=== PATIENT | male | born 1965 | race Caucasian/White ===

== ENCOUNTER → 2023-03-10 13:53 | Outpatient (CLI) | payer SELFPAY ==
--- NOTE | ~2023-03-10 | XR_ITS ---
XR abdomen/kub 1V DATE: 03/10/2023 14:17 INDICATION: Abdominal pain, severe constipation for 6 to 8 weeks TECHNIQUE: 2 AP supine views COMPARISON: None FINDINGS: There are multiple calcified faceted probable gallstones measuring up to proxy 4 5 mm, over lying the right upper quadrant. There is moderately prominent of fecal material in the cecum and ascending colon and moderate gaseous distention of the transverse and descending colon. No bowel obstruction is evident. The psoas shadows are intact. No visceromegaly is detected. The lung bases are clear. Heart size appears normal. IMPRESSION: Nonspecific bowel gas pattern; moderate amount of fecal material in the cecum and ascendi ng colon Probable calcified gallstones Reviewed, dictated and finalized at [facility]. Reviewed, dictated and finalized at location [] IMPRESSION: Nonspecific bowel gas pattern; moderate amount of fecal material in the cecum and ascending colon Probable calcified gallstones
== END ==
PROVIDERS: PCP Nurse Practitioner Family; Visit Provider Nurse Practitioner Family
DX: R10.9 Unspecified abdominal pain (principal); K59.00 Constipation, unspecified
CPT/HCPCS: 74018

== ENCOUNTER 2023-03-21 15:13 | Emergency (ER) | payer SELFPAY ==
--- NOTE | ~2023-03-21 | CT_ITS ---
EXAMINATION: CT abdomen pelvis w con DATE: 03/21/2023 19:17 INDICATION: constipation, LLQ, RLQ TTP TECHNIQUE: Computed tomography (CT) of the abdomen and pelvis was performed with 100 mL Omnipaque-350 intravenous contrast. Automated exposure control and iterative reconstruction technique were employe d. The dose-length product was 831.58 mGy-cm. COMPARISON: None. FINDINGS: Lower thorax: Unremarkable Liver: Caudate lobe hypodensity, likely cyst or hemangioma. Biliary/Gallbladder: Cholelithiasis. No bile duct dilation. Pancreas: No mass or duct dilation. Spleen: Normal. Adrenals:No mass. Kidneys: Multiple simple right renal cysts. Multiple bilateral subcentimeter hypodensities, too small to characterize but most likely represent cysts. Mild bilateral perinephric stranding. No suspicious mass, obstructing calcification, or hydronephrosis GI tract: Moderate distal esophageal and gastric wall edema. Wall thickening and edema affecting the entire sigmoid colon, with severe surrounding inflammatory change and adjacent interloop fluid. Mild dilation of proximal large bowel. No small bowel dilation. Normal appendix. Mesentery/Peritoneum: Mesenteric lymphadenopathy. No ascites, mass, or free air. Retroperitoneum: No mass. Mild atherosclerotic abdominal aortic and/or arterial calcifications. Pelvis: 9 mm focus in the left lateral aspect of the superior urinary bladder, may represent a bladde r wall mass. Mild prostatomegaly with calcification. Soft Tissues: Soft tissues and body wall unremarkable. Bones: No acute osseous finding. IMPRESSION: 1. Severe infectious, inflammatory, or ischemic sigmoid colitis, causing mild proximal large bowel il eus or early/partial obstruction. 2. Esophagitis/gastritis. 3. 9 mm bladder wall focus, possible bladder wall mass, recommend urology referral and consideration for cystoscopy. 4. Mesenteric lymphadenopathy. Reviewed, dictated and finalized at location K. IMPRESSION: 1. Severe infectious, inflammatory, or ischemic sigmoid colitis, causing mild p roximal large bowel ileus or early/partial obstruction. 2. Esophagitis/gastritis. 3. 9 mm bladder wall focus, possible bladder wall mass, recommend urology refer ral and consideration for cystoscopy. 4. Mesenteric lymphadenopathy.
[2023-03-21 15:36] VITALS: BP 146/99; PULSE 89; RESP 18; TEMP 36.3; O2SAT 95
--- NOTE | 2023-03-21 17:49 | ED.GENADULT ---
HPI - General Adult General Chief complaint: Abdominal Pain Stated complaint: constipation Time Seen by Provider: 03/21/23 17:12 Source: patient Mode of arrival: ambulatory Limitations: no limitations History of Present Illness HPI narrative: This is a 57-year-old male with PMH of T2DM, HLD, BPH who presents to the ED with chief complaint of constipation has been going on for the last 8 weeks. Patient states that last month he saw his PCP and had an x-ray and was given stool softener and Gas-X. States that the stool softener helped a little but he still feels constipated and bloated. He has tried other urrv-rdd-rprrfhz remedies with no relief. Patient states that he is having bowel movements but not a lot. Also reports concern over a protruding rectum. Denies bloody stools or melena. Denies nausea, vomiting, fevers, chills, chest pain, shortness of breath. He was able to have a bowel movement while in the department today just before I interviewed him. Related Data Home Medications Medication Instructions Recorded Confirmed multivitamin (Daily Multi-Vitamin 1 tablet PO DAILY 01/31/23 tablet) oarwbm-[id number]-tnz palm-min 17 cap PO .QD 01/31/23 capsule (Prostate Therapy capsule) pravastatin 40 mg tablet 40 mg PO QHS 01/31/23 Allergies Allergy/AdvReac Type Severity Reaction Status Date / Time No Known Allergies Allergy Verified 01/31/23 14:14 [facility] Past Medical History Medical History Benign essential hypertension BPH associated with nocturia Hyperlipidemia, unspecified Type 2 diabetes mellitus without complication, without long-term current use of insulin Surgical History Surgical History No history of previous surgery Family History Family History Mother Hypertension Father Family history of kidney disease Family history of coronary artery disease Other Cerebrovascular accident Social History Social History Social History: Patient is . 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 Smoking status: Never smoker Alcohol intake: former Substance use: never Substance use type: does not use Living arrangements: with family Occupation/Education: occupation Gender identity (if verbalized by the patient): Male Sexual Orientation (if Verbalized by the Patient): Straight or Heterosexual Exam Narrative: GENERAL: Well-appearing, well-nourished, and in no acute distress. HEAD: Normocephalic, atraumatic. EYES: PERRLA and EOMI. ENT: Nares clear, no rhinorrhea or epistaxis. Mucous membranes moist. Oropharynx without tonsillar hypertrophy exudate or other lesions. NECK: Supple. No adenopathy or masses. CHEST: No respiratory distress. Clear to auscultation. No wheezes rales or rhonchi HEART: Regular rate and rhythm. No murmur heard. Normal peripheral pulses. ABDOMEN: Mild abdominal distention. No bruising. No lesions. Tenderness to the left lower quadrant and right lower quadrant. Negative flank tenderness. Soft, normal active bowel sounds. MSK: Normal range of motion. No edema. SKIN: Warm, dry, no rash. NEURO: Alert and oriented x3. No focal deficits. PSYCH: Normal mood and affect. Rectal exam performed with RN river rafting guide present: No vonnie blood Guaiac test was negative No abscesses He does have very slight protrusion of the rectum. Course Vital Signs Vital signs: Vital Signs Temperature 97.4 F L 03/21/23 15:36 Pulse Rate 89 03/21/23 15:36 Respiratory Rate 18 03/21/23 15:36 Blood Pressure 146/99 H 03/21/23 15:36 Pulse Oximetry 95 03/21/23 15:36 Oxygen Delivery Room Air 03/21/23 15:36 Temperature 97.4 F L 03/21/23 15:36 Pulse Rate 76 03/21/23 23:32 Res
[2023-03-21 17:58] LABS: Basophils Absolute Auto 0.1 K/mm3 (0.0-0.1); Basophils Percent Auto 0.6 % (0.2-1.2); Eosinophils Absolute Auto 0.2 K/mm3 (0-0.3); Eosinophils Percent Auto 2.8 % (0-4.4); Hematocrit 41.7 % (42.0-52.0); Hemoglobin 14.1 g/dL (14.0-18.0); Immature Granulocyte Absolute 0.02 K/mm3 (0.00-0.031); Immature Granulocyte Percent A 0.2 % (0-0.5); Lymphocytes Absolute Auto 1.72 K/mm3 (0.9-3.2); Lymphocytes Percent Auto 20.2 % (18.3-44.2); Mean Corpuscular HGB Conc 33.8 g/dl (32-36); Mean Corpuscular Hemoglobin 29.6 pg (26-34); Mean Corpuscular Volume 87.6 fl (80-100); Mean Platelet Volume 10.9 fl (7.4-10.4); Monocytes Absolute Auto 0.9 K/mm3 (0.1-0.6); Monocytes Percent Auto 10.5 % (2.6-8.5); Neutrophils Absolute Auto 5.6 K/mm3 (1.3-6.7); Neutrophils Percent Auto 65.7 % (45.5-73.1); Platelet Count Result 427 k/mm3 (150-375); Red Blood Count 4.76 M/mm3 (4.6-6.20); Red Cell Distribution Width 13.9 % (11.5-14.5); White Blood Count 8.5 K/mm3 (4.5-10.0)
[2023-03-21 18:58] LABS: Alanine Aminotransferase 30 U/L (6-50); Albumin Level 4.3 g/dL (3.5-5.1); Alkaline Phosphatase 78 U/L (38-126); Aspartate Amino Transferase 42 U/L (17-59); Bilirubin,Total 0.5 mg/dL (0.2-1.3); Blood Urea Nitrogen 13 mg/dL (9-20); Calcium 9.2 mg/dL (8.4-10.2); Carbon Dioxide > 40 mmol/L (22-30); Chloride 94 mmol/L (98-107); Estimated CRCL calculation 66 ml/min; Estimated Glomerular Filt Rate > 60; Glucose 105 mg/dL (65-110); Potassium 3.1 mmol/L (3.4-5.0); Sodium 142 mmol/L (137-145)
[2023-03-21 20:00] LABS: Appearance Urine Clear (Clear); Bacteria Urine None Seen /hpf; Bilirubin Urine Negative (Negative); Blood Urine Negative (Negative); Color Urine Yellow (Yellow); Glucose Urine UA Negative (Negative); Ketones Urine 1+ mg/dL (Negative); Leukocyte Esterase Ur Negative LEU/UL (Negative); Need Manual Microscopic Reviewed; Nitrate Urine Negative (Negative); Protein Urine Trace mg/dL (Negative); RBC Urine 0-2 /hpf (0-2); Squamous Epithelial Cell Urine None seen /hpf (Few); WBC Urine 0-5 /hpf
[2023-03-21 20:02] LABS: Add Urine Microscopic? YES; Specific Grav Ur 1.051 (1.001-1.035)
[2023-03-21] MEDS: metroNIDAZOLE 500 MG/ISO 100ML 500 MG/100 ML BAG 100 MG IVPB (20:43)
[2023-03-21 20:45] VITALS: BP 143/85; PULSE 62; RESP 14; O2SAT 99
[2023-03-21 20:55] VITALS: PULSE 68; RESP 11; O2SAT 100
[2023-03-21 21:19] LABS: Lactic Acid Reflex 1.2 mmol/L (0.7-2.0)
[2023-03-21] MEDS: CIPROFLOXACIN 400 MG/D5W 200ML 200 ML 200 MG IVPB (22:10)
[2023-03-21 23:32] VITALS: BP 142/91; PULSE 76; RESP 15; O2SAT 100
== END 2023-03-22 | disposition home or self-care (01) ==
PROVIDERS: Emergency Provider Physician Assistant; PCP Nurse Practitioner Family
DX: K52.9 Noninfective gastroenteritis and colitis, unspecified (principal); I10 Essential (primary) hypertension; E11.9 Type 2 diabetes mellitus without complications; E78.5 Hyperlipidemia, unspecified; N40.1 Benign prostatic hyperplasia with lower urinary tract symptoms; R35.1 Nocturia
CPT/HCPCS: 36415; 74177; 80053; 81001; 83605; 85025; 96365; 96367; 99284; J0744; Q9967

== ENCOUNTER 2023-06-14 21:24 | Inpatient (IN) | payer OTHER, SELFPAY ==
--- NOTE | ~2023-06-14 | XR_ITS ---
Supine and upright views of the abdomen Clinical history: Abdominal pain COMPARISON: 06/18/2023 Findings: There is stable marked gaseous distention of predominantly transverse and descending colon. No definite free air is seen. No abnormal mass lesion or calcification is seen. Osseous structures a re intact. Impression: Stable marked gaseous distention of predominantly transverse and descending colon. Colonic obstructio n at the distal descending colon is a consideration. Reviewed, dictated and finalized at location . Impression: Stable marked gaseous distention of predominantly transverse and descending col on. Colonic obstruction at the distal descending colon is a consideration.
--- NOTE | ~2023-06-14 | XR_ITS ---
EXAMINATION: XR_KUBGTUBINS_CR DATE: 06/19/2023 19:44 INDICATION: Nasogastric tube placement. TECHNIQUE: An upright view of the abdomen was obtained. COMPARISON: CT abdomen and pelvis 06/17/2023 FINDINGS: The lower abdomen is excluded. The nasogastric tube tip is in the midesophagus. Skin staple s overlie the abdomen. There is mild atelectasis in the lower lung zones. There are gallstones in the gallbladder. IMPRESSION: 1. Nasogastric tube tip in the midesophagus. Reviewed, dictated and finalized at location E.
--- NOTE | ~2023-06-14 | CT_ITS ---
CT of the Abdomen and Pelvis: Indication: Abdominal Technique: 2.5 mm axial scans were obtained through the abdomen and pelvis following intravenous adm inistration of 100 cc of Omnipaque 350. Dose reduction technique was used on this scan by utilizing a utomated exposure control and iterative reconstruction technique. The dose-length product (DLP) was 6 81.03 mGy-cm. COMPARISON: 03/21/2023 Findings: Scans through the lung bases are unremarkable. There is a large ill-defined hypodense lesion or mass in the inferior right hepatic lobe, new from pr ior exam, measuring up to approximately 7.0 x 3.9 x 4.7 cm in extent (coronal images 73-85, axial shara ges 58-76). The spleen, pancreas, adrenals and kidneys are within normal limits. Small calcified gall stones are present. No evidence of aortic aneurysm. There is extensive para-aortic and maty hepatis lymphadenopathy, new from prior exam, with maty hep atis lymph node measuring up to 3.4 cm in diameter (axial image 71), and para-aortic lymph nodes xiomara uring up to 3.0 cm in maximum diameter (axial image 112).. There is extensive wall thickening of the sigmoid colon and rectum, similar to prior exam. There is c aliber change at the proximal sigmoid colon with distention of the more proximal large bowel which is filled with stool. There are extensive infiltrative/inflammatory changes in the mesentery particular ly about the rectum and sigmoid colon, also similar to prior exam. There are mildly enlarged perirect al lymph nodes. There are new infiltrative changes in the left pararenal region, just anterior to the left kidney, with similar appearance of the perisigmoid changes. Images through the pelvis were performed. There is masslike wall thickening at the posterior aspect o f the urinary bladder (axial image 169 for example). Prostate gland grossly unremarkable. No ascites. Impression: Extensive wall thickening of sigmoid colon and rectum with associated at least partial large bowel ob struction at the level proximal sigmoid colon. There are extensive infiltrative/inflammatory changes in the perisigmoid mesentery. These findings are all similar to prior exam, and are suspicious for co lonic malignancy versus possibility of infectious/inflammatory colitis. New hypodensity inferior right hepatic lobe lesion measuring 7.0 x 3.9 x 4.7 cm, suspicious for metas tasis. Extensive maty hepatis and retroperitoneal lymphadenopathy, as well as mildly prominent perirectal l ymph nodes, suspicious for metastatic lymphadenopathy, new from prior exam. New infiltrative changes in the left pararenal region anteriorly, which could reflect infiltrative me tastatic disease/neoplasm versus possibly retroperitoneal hemorrhage. Increasing masslike thickening of the posterior urinary bladder wall, consistent with neoplastic/meta static disease. Cholelithiasis. Reviewed, dictated and finalized at location M. Impression: Extensive wall thickening of sigmoid colon and rectum with associated at least partial large bowel obstruction at the level proximal sigmoid colon. There are extensive infiltrative/inflammatory changes in the perisigmoid mesentery. These findings are all similar to prior exam, and are suspicious for colonic maligna ncy versus possibility of infectious/inflammatory colitis. New hypodensity inferior right hepatic lobe lesion measuring 7.0 x 3.9 x 4.7 cm , suspicious for metastasis. Extensive maty hepatis and retroperitoneal lymphadenopathy, as well as mildly prominent perirectal lymph nodes, suspicious for metastatic lymphadenopathy, ne w from prior exam. New infiltrative changes in the left pararenal region anteriorly, which could r eflect infiltrative metastatic disease/neoplasm versus possibly retrope
--- NOTE | ~2023-06-14 | CT_ITS ---
EXAMINATION: CT diagnostic chest wo/w con DATE: 06/20/2023 20:15 INDICATION: Rectal cancer restaging TECHNIQUE: Computed tomography (CT) of the chest was performed without and subsequently with 75 CC Om nipaque 350 intravenous contrast. Automated exposure control and iterative reconstruction technique w ere employed. Exam dose: 465.03 mGy-cm total exam DLP. COMPARISON: None FINDINGS: Cardiomegaly. No pericardial effusion. Ascending aorta measures up to 4 cm approximate diameter, the aortic arch up to 3.2 cm diameter. No t horacic aortic dissection. There is left superior mediastinal and prevascular lymphadenopathy. 2 prevascular lymph nodes measuri ng up to 8.6 x 13.6 and 9.2 x 11.4 mm. There is mild dependent bilateral upper lobe atelectasis and much greater atelectasis and/or infiltra te with air bronchograms in the lower lobes. There are mild bilateral pleural effusions. There is increased ascites since 06/17/2023. Probable hemangioma of T6 vertebral body IMPRESSION: Bilateral infiltrate and/atelectasis, mild at the dependent upper lobes and much more pr ominent in the lower lobes Mild left prevascular and superior mediastinal lymphadenopathy, which may be reactive or metastatic Cardiomegaly, mild pleural effusions Mild thoracic aortic aneurysm Increased ascites since 06/17/2023 Reviewed, dictated and finalized at [facility]. Reviewed, dictated and finalized at location A. IMPRESSION: Bilateral infiltrate and/atelectasis, mild at the dependent upper lobes and much more prominent in the lower lobes Mild left prevascular and superior mediastinal lymphadenopathy, which may be re active or metastatic Cardiomegaly, mild pleural effusions Mild thoracic aortic aneurysm Increased ascites since 06/17/2023
--- NOTE | ~2023-06-14 | US_ITS ---
EXAMINATION: US renal BI DATE: 06/20/2023 08:34 INDICATION: Worsening renal function TECHNIQUE: Multiple ultrasound grayscale images of the kidneys were obtained. COMPARISON: None. FINDINGS: The right kidney measures 10.6 x 6.1 x 5.6 cm. The left kidney measures 12.1 x 5.4 x 4.7 cm. The kidn eys demonstrate normal echogenicity. There is no hydronephrosis in either kidney. No stones identifi ed. There is nonuniform posterior predominant wall thickening of the bladder with lobular mucosal con tour. There are few foci of gas within the nondependent bladder which may be related to recent instru mentation or Tom catheterization. Small amount of mildly complex ascites in the right upper quadran t with few internal echogenic foci and thin internal septation. IMPRESSION: 1. Normal kidneys without hydronephrosis. 2. Nonuniform wall thickening along the posterior bladder wall. Cannot exclude malignancy and would r ecommend further evaluation with cystoscopy. 3. Small amount of mildly complex ascites in the right upper quadrant most likely related to recent s urgery with differential including malignant effusion or peritonitis in the appropriate clinical sett ing. Reviewed, dictated and finalized at location A. IMPRESSION: 1. Normal kidneys without hydronephrosis. 2. Nonuniform wall thickening along the posterior bladder wall. Cannot exclude malignancy and would recommend further evaluation with cystoscopy. 3. Small amount of mildly complex ascites in the right upper quadrant most like ly related to recent surgery with differential including malignant effusion or peritonitis in the appropriate clinical setting.
--- NOTE | ~2023-06-14 | XR_ITS ---
EXAMINATION: XR abdomen/kub 1V DATE: 06/18/2023 12:48 INDICATION: Large bowel obstruction with abdominal pain TECHNIQUE: A supine view of the abdomen on 2 radiographs was obtained. COMPARISON: CT dated 06/17/2023 FINDINGS: Prominent gaseous distention of the colon extending to the mid descending colon. Relative paucity of bowel gas in the pelvis. No other dilated loops of gas-filled small bowel. Cluster of several small g allstones in the right upper quadrant. IMPRESSION: 1. Gaseous distention of the proximal to mid colon with relatively gasless pelvis consistent with lik juancho distal colonic obstruction. 2. Cholelithiasis. Reviewed, dictated and finalized at location A. IMPRESSION: 1. Gaseous distention of the proximal to mid colon with relatively gasless pelv is consistent with likely distal colonic obstruction. 2. Cholelithiasis.
--- NOTE | ~2023-06-14 | CT_ITS ---
EXAMINATION: CT abdomen pelvis wo con DATE: 06/17/2023 11:30 INDICATION: Abdominal generalized pain and abdominal distention. TECHNIQUE: Computed tomography (CT) of the abdomen and pelvis was performed without intravenous contr ast. Automated exposure control and iterative reconstruction technique were employed. Exam dose: 708 .25 mGy-cm total exam DLP. COMPARISON: 06/15/2023 CT abdomen pelvis FINDINGS: The lung bases are clear. Heart size is normal. No pericardial or pleural effusion. Cholelithiasis. The liver, spleen, pancreas and adrenal glands are unremarkable on this limited noncontrast examinati on. However, large right hepatic liver lesion is demonstrated to better advantage on the 06/15/2023 CT abdomen examination with IV contrast material. Bilateral renal cysts are demonstrated to better advantage on the 06/15/2023 CT examination with IV co ntrast material. There is extensive patchy soft tissue thickening and mild fluid accumulation in the left perinephric area. Again noted is periportal, periaortic and aortocaval and bilateral external iliac lymphadenopathy. Extensive nodular soft tissue thickening is evident along the right sigmoid area. Prominent fluid lev els are noted in the descending, transverse and right colon; possible proximal sigmoid colon obstruct ion. There is prominent soft tissue thickening along the rectum and sigmoid colon. Soft tissue thickening along the posterior bladder wall; bladder neoplasm is not excluded. Prostate calcifications. Bilateral vas deferens calcifications, suggesting diabetes. There is atherosclerotic calcification but normal caliber of the abdominal aorta. No suspicious osteolytic or osteoblastic lesions are noted. IMPRESSION: Extensive metastatic disease is suggested, including hepatic, periaortic, aortocaval, po rtal and bilateral external iliac lymphadenopathy, pararectal and sigmoid paracolic masses Possible proximal sigmoid colon obstruction; prominent thickening of the wall of the rectum and sigmo id colon Thickening of the posterior bladder wall; bladder neoplasm is not excluded. No significant interval change since 06/15/2023 Reviewed, dictated and finalized at [facility]. Reviewed, dictated and finalized at location A. IMPRESSION: Extensive metastatic disease is suggested, including hepatic, baltazar aortic, aortocaval, portal and bilateral external iliac lymphadenopathy, parare ctal and sigmoid paracolic masses Possible proximal sigmoid colon obstruction; prominent thickening of the wall o f the rectum and sigmoid colon Thickening of the posterior bladder wall; bladder neoplasm is not excluded. No significant interval change since 06/15/2023
[2023-06-14 21:26] VITALS: BP 169/100; PULSE 81; RESP 20; TEMP 36.6; O2SAT 100
[2023-06-14 22:55] LABS: Basophils Absolute Auto 0.1 K/mm3 (0.0-0.1); Basophils Percent Auto 0.7 % (0.2-1.2); Eosinophils Absolute Auto 0.7 K/mm3 (0-0.3); Eosinophils Percent Auto 7.4 % (0-4.4); Hemoglobin 11.9 g/dL (14.0-18.0); Immature Granulocyte Absolute 0.02 K/mm3 (0.00-0.031); Immature Granulocyte Percent A 0.2 % (0-0.5); Lymphocytes Absolute Auto 1.31 K/mm3 (0.9-3.2); Lymphocytes Percent Auto 14.7 % (18.3-44.2); Mean Corpuscular HGB Conc 33.1 g/dl (32-36); Mean Corpuscular Hemoglobin 29.2 pg (26-34); Mean Corpuscular Volume 88.2 fl (80-100); Monocytes Absolute Auto 0.8 K/mm3 (0.1-0.6); Monocytes Percent Auto 8.8 % (2.6-8.5); Neutrophils Absolute Auto 6.1 K/mm3 (1.3-6.7); Neutrophils Percent Auto 68.2 % (45.5-73.1); Platelet Count Result 424 k/mm3 (150-375); Red Blood Count 4.08 M/mm3 (4.6-6.20); Red Cell Distribution Width 14.3 % (11.5-14.5); White Blood Count 8.9 K/mm3 (4.5-10.0)
[2023-06-14 23:02] LABS: Appearance Urine Clear (Clear); Bacteria Urine None Seen /hpf; Bilirubin Urine Negative (Negative); Blood Urine Negative (Negative); Color Urine Yellow (Yellow); Glucose Urine UA Negative (Negative); Ketones Urine Negative (Negative); Leukocyte Esterase Ur Trace LEU/UL (Negative); Nitrate Urine Negative (Negative); Non Pathogenic Casts 0-2; Protein Urine Negative (Negative); RBC Urine 0-2 /hpf (0-2); Squamous Epithelial Cell Urine None seen /hpf (Few); Urobilinogen Urine 0.2 mg/dL (<2.0); WBC Urine 0-5 /hpf; pH Urine 6.5 (5.0-9.0)
[2023-06-14 23:09] LABS: Add Urine Microscopic? YES
[2023-06-14 23:11] LABS: Alanine Aminotransferase 41 U/L (6-50); Albumin Level 4.2 g/dL (3.5-5.1); Alkaline Phosphatase 262 U/L (38-126); Anion Gap 6 mmol/L (8-16); Aspartate Amino Transferase 55 U/L (17-59); Bilirubin,Total 0.6 mg/dL (0.2-1.3); Blood Urea Nitrogen 15 mg/dL (9-20); Calcium 9.1 mg/dL (8.4-10.2); Carbon Dioxide 35 mmol/L (22-30); Chloride 96 mmol/L (98-107); Estimated CRCL calculation 59 ml/min; Estimated Glomerular Filt Rate > 60; Glucose 125 mg/dL (65-110); Lipase 74 U/L (23-300); Potassium 2.6 mmol/L (3.4-5.0); Sodium 137 mmol/L (137-145)
[2023-06-15] VITALS (18 sets, daily range): BP systolic 153–186; BP diastolic 92–110; PULSE 76–98; RESP 11–19; TEMP 36.2–36.9; O2SAT 99–100
--- NOTE | 2023-06-15 00:04 | ECG_ITS ---
Measurements Intervals [place] Rate: 67 P: 47 [place]: 156 QRS: 13 QRSD: 93 T: 15 QT: 444 QTc: 470 Interpretive Statements SINUS RHYTHM LEFT VENTRICULAR HYPERTROPHY AND ST-T CHANGE BORDERLINE ECG NO PREVIOUS ECG AVAILABLE FOR COMPARISON Electronically Signed On 06-15-2023 6:36:58 CDT by Wiley Alvarado D.O.
[2023-06-15] MEDS: SODIUM CHLORIDE 0.9% IV 1,000 ML 999 ML IV CONT (01:57)
[2023-06-15] MEDS: MORPHINE SULFATE (*CRX) 4 MG/ML INJ IV PUSH ×3 (02:27→21:42)
[2023-06-15] MEDS: ONDANSETRON INJ 4 MG/2 ML VIAL IV PUSH ×3 (02:27→17:22)
[2023-06-15] MEDS: KCL 20 MEQ/SW 100 ML 100 ML 50 MEQ IVPB (02:28)
--- NOTE | 2023-06-15 04:00 | ED.GENADULT ---
HPI - General Adult General Chief complaint: Abdominal Pain Stated complaint: abd pain Time Seen by Provider: 06/15/23 00:58 History of Present Illness HPI narrative: Patient is a 58-year-old gentleman who presents the emergency department with chief complaint of abdominal pain. Patient reports for the last several months he has been having pain in his abdomen reports is worse in the lower quadrants patient does report that he had a lot of blood in his stool and reports that over the last several days the pain has gotten worse. Related Data Home Medications Medication Instructions Recorded Confirmed multivitamin (Daily Multi-Vitamin 1 tablet PO DAILY 01/31/23 03/28/23 tablet) wpoaon-neqdmkn-srw palm-min 17 cap PO .QD 01/31/23 03/28/23 capsule (Prostate Therapy capsule) pravastatin 40 mg tablet 40 mg PO QHS 01/31/23 03/28/23 aspirin 81 mg tablet,delayed 81 mg PO DAILY 03/28/23 03/28/23 release fenofibrate 40 mg tablet 40 mg PO DAILY 03/28/23 03/28/23 metformin 1,000 mg tablet 1,000 mg PO DAILY 03/28/23 03/28/23 Allergies Allergy/AdvReac Type Severity Reaction Status Date / Time No Known Allergies Allergy Verified 03/28/23 13:01 Review of Systems Review of Systems: A 10 system review of systems was completed on the patient and is negative except for what is stated in the HPI. Nursing and ancillary documentation was reviewed. [facility] Past Medical History Medical History Benign essential hypertension BPH associated with nocturia Hyperlipidemia, unspecified Type 2 diabetes mellitus without complication, without long-term current use of insulin Surgical History Surgical History No history of previous surgery Family History Family History Mother Hypertension Father Family history of kidney disease Family history of coronary artery disease Other Cerebrovascular accident Social History Social History Social History: Patient is . 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 Smoking status: Never smoker Alcohol intake: former Substance use: never Substance use type: does not use Living arrangements: with family Occupation/Education: occupation Gender identity (if verbalized by the patient): Male Sexual Orientation (if Verbalized by the Patient): Straight or Heterosexual Exam Narrative: GENERAL: Well-appearing, well-nourished, and in no acute distress. HEAD: Normocephalic, atraumatic. EYES: PERRLA and EOMI. ENT: Nares clear, no rhinorrhea or epistaxis. Mucous membranes moist. NECK: Supple. CHEST: Clear to auscultation. No respiratory distress. HEART: Regular rate and rhythm. No murmur heard. Normal peripheral pulses. ABDOMEN: Soft, diffusely tender to palpation, nondistended, normal active bowel sounds. EXTREMITIES: Normal range of motion. No edema. SKIN: Warm, dry, no rash. NEURO: No focal deficits. Alert and oriented x3. PSYCH: Normal mood and affect. Course Vital Signs Vital signs: Vital Signs Temperature 36.6 C 06/14/23 21:26 Pulse Rate 81 06/14/23 21:26 Respiratory Rate 20 06/14/23 21:26 Blood Pressure 169/100 H 06/14/23 21:26 Pulse Oximetry 100 06/14/23 21:26 Oxygen Delivery Room Air 06/14/23 21:26 Temperature 36.6 C 06/14/23 21:26 Pulse Rate 85 06/15/23 04:26 Respiratory Rate 15 06/15/23 04:26 Blood Pressure 160/104 H 06/15/23 04:26 Pulse Oximetry 99 06/15/23 04:26 Oxygen Delivery Room Air 06/14/23 21:26 Medical Decision Making [facility] Narrative Medical decision making narrative: Differential diagnosis includes colitis, diverticulitis, neoplasm, large bowel/small bowel obstruction Laborator
[2023-06-15] MEDS: PIPERACILLN/TAZ 3.375GM/NS50ML 3.375 GM/50 ML BAG IVPB ×3 (05:24→17:51)
[2023-06-15] MEDS: SODIUM CHLORIDE 0.9% IV 1,000 ML 125 ML IV CONT (08:42)
--- NOTE | 2023-06-15 09:01 | ADMGEN ---
This patient, Valerio Recinos, was admitted to [facility] Surg Room 303-01. Patient/family oriented to hospital policies and general routines including ID bracelet, bed and alarms, visiting hours, pain management, procedures, bathroom and other care routines, personal items, smoking policy, room service/diet, and visiting hours. Information on how to activate the Rapid Response Team has been discussed. Patient/Family are encouraged to report perceived risks to care and to ask questions if they do not understand what they are told or what they should do.
[2023-06-15 09:25] LABS: Hematocrit 34.4 % (42.0-52.0); Hemoglobin 11.4 g/dL (14.0-18.0); Mean Corpuscular HGB Conc 33.1 g/dl (32-36); Mean Corpuscular Hemoglobin 29.3 pg (26-34); Mean Corpuscular Volume 88.4 fl (80-100); Mean Platelet Volume 9.9 fl (7.4-10.4); Platelet Count Result 389 k/mm3 (150-375); Red Blood Count 3.89 M/mm3 (4.6-6.20); Red Cell Distribution Width 14.5 % (11.5-14.5); White Blood Count 7.5 K/mm3 (4.5-10.0)
--- NOTE | 2023-06-15 09:45 | PM.CNGS ---
Assessment and Plan Assessment and plan (1) Colonic mass: Code(s): K63.89 - Other specified diseases of intestine Status: Acute Assessment and Plan: CT findings concerning for a neoplasm with evidence of metastatic disease, likely metastatic colon cancer. He does have at least a partial bowel obstruction secondary to the colon mass. We would recommend GI consultation and see if they are able to possibly slowly prep the patient for a colonoscopy to get biopsies for a diagnosis. Discussed with the patient that if he is unable to tolerate the prep and has more obstructive symptoms concerning for a high-grade obstruction, then we may need to consider a diverting colostomy. At this point, he has a very guarded prognosis. He may potentially be a candidate for chemo and radiation therapy, but would not be a candidate for surgical resection. Another option if he were to tolerate the bowel prep and have the colonoscopy, could be a colonic stent and chemo/radiation. Will await GI recommendations and continue to follow along closely. (2) Liver lesion: Code(s): K76.9 - Liver disease, unspecified Status: Acute Assessment and Plan: New since his CT in March, consistent with metastatic lesion. (3) Large bowel obstruction: Code(s): K56.609 - Unspecified intestinal obstruction, unspecified as to partial versus complete obstruction Status: Acute Assessment and Plan: At least partial bowel obstruction secondary to colon mass. Will keep NPO for now and await GI recommendations. See plan above. (4) Abnormal CT of the abdomen: Code(s): R93.5 - Abnormal findings on diagnostic imaging of other abdominal regions, including retroperitoneum Status: Acute Assessment and Plan: CT findings concerning of metastatic disease with extensive lymphadenopathy, liver lesion, and extension to bladder. See plan above. (5) Hypokalemia: Code(s): E87.6 - Hypokalemia Status: Acute Assessment and Plan: Potassium 2.6 on admission, given 20 meq KCL, repeat today is still 2.6. Will give 40 meq IV KCL and add KCL to maintenance IV fluids. He may need an oral KCL supplement once he is on an oral diet. Continue to monitor labs and replace as needed. (6) Weight loss: Code(s): R63.4 - Abnormal weight loss Status: Acute Assessment and Plan: 40 lbs in the past few months (7) Benign essential hypertension: Code(s): I10 - Essential (primary) hypertension Status: Chronic Plan I have discussed the patient's case and plan of care with Dr. Lara. Thank you for allowing us to see the patient in consultation and we will continue to follow along with you. History of Present Illness Consult details Consult date: 06/15/23 Reason for consult: other (Colitis versus colon mass with lymphadenopathy) Requesting physician: Bienvenido Hawkins MD Narrative: This is a 58-year-old man who presented to the ER early this morning with complaints of abdominal pain. Over the past 9-10 months, he has been dealing with bloating, lower abdominal pain, and diarrhea. He reports that last year he was dealing with constipation fairly frequently. Around September, he was having issues with diarrhea and this has progressively became more consistent. Over the past few months, he has additionally developed lower abdominal pain and bloating. He reports noticing bloody mucus in his stools intermittently over the past few months as well. He additionally admits to fatigue and a 40 lb unintentional weight loss over the past few months. He had an episode of abdominal pain and vomiting in March of 2023 that brought him into the ER. CT scan showed evidence of sigmoid colitis, possible early or partial large bowel obstruction, mesenteric lymphadenopathy, possible bladder wall mass, and esophagitis/gastritis. At that time he was sent home with oral antibiotics and referred to GI. He was evaluated by the gastroe
[2023-06-15 09:46] LABS: Alanine Aminotransferase 34 U/L (6-50); Albumin Level 3.7 g/dL (3.5-5.1); Alkaline Phosphatase 224 U/L (38-126); Anion Gap 10 mmol/L (8-16); Aspartate Amino Transferase 41 U/L (17-59); Bilirubin,Total 0.7 mg/dL (0.2-1.3); Blood Urea Nitrogen 14 mg/dL (9-20); Calcium 8.5 mg/dL (8.4-10.2); Carbon Dioxide 29 mmol/L (22-30); Chloride 100 mmol/L (98-107); Estimated CRCL calculation 72 ml/min; Estimated Glomerular Filt Rate > 60; Glucose 108 mg/dL (65-110); Potassium 2.6 mmol/L (3.4-5.0); Sodium 139 mmol/L (137-145)
[2023-06-15] MEDS: PANTOPRAZOLE SODIUM IV 40 MG VIAL IV PUSH (09:58)
[2023-06-15] MEDS: KCL 40 MEQ/0.9% SOD CHL 1,000 ML 100 ML IV CONT ×2 (10:19→21:13)
[2023-06-15] MEDS: POTASSIUM CHLORIDE INJ 40 MEQ in SODIUM CHLORIDE 0.9% IV 500 ML 130 MEQ IVPB (10:22)
[2023-06-15 10:42] LABS: Magnesium 2.1 mg/dL (1.6-2.3)
[2023-06-15 11:14] LABS: Carcinoembryonic Antigen 46.5 ng/mL (0.0-3.0)
[2023-06-15 11:50] LABS: Toxigenic C. Diff NEGATIVE (NEGATIVE)
--- NOTE | 2023-06-15 12:54 | PM.IMHP ---
H&P: HPI History of Present Illness Date/Time: 06/15/23 12:54 Chief Complaint: diarrhea, hematochezia, abdominal pain Narrative: This is a 58-year-old male with a past medical history of hypertension and hyperlipidemia that presented to the ED due to increased abdominal pain, persistent diarrhea and hematochezia. Patient had recently been seen in the ED in March of 2023 due to diarrhea and abdominal pain. At that time they had found a 9 mm bladder wall mass as well as mesenteric lymphadenopathy and it was recommended that he follow-up with urology for this. During this presentation CT abdomen pelvis revealed extensive wall thickening of the sigmoid colon suspicious for colonic malignancy versus possibility of infectious / inflammatory colitis. New hypodensity near the right hepatic lobe suspicious for metastasis. Extensive maty hepaticus and retroperitoneal lymphadenopathy and perirectal lymph nodes suspicious for metastatic lymphadenopathy. And increasing masslike thickening of the posterior urinary bladder wall consistent with neoplastic metastatic disease. Patient states that since March of 2023 he has been experiencing intermittent abdominal pain, intermittent constipation and intermittent diarrhea. patient states that abdominal pain is stabbing in nature and runs across his lower abdomen. He developed rectal bleed a couple weeks ago. He has had fecal urgency that is not associated with eating or drinking. Denies any family history of colon cancer. He does support a 40 lb weight loss over the past couple months. Patient has no history of prior colonoscopy. Patient's hemoglobin has dropped from 14.1-11.4 in approximately 3 months although he has not had any shortness of breath, lightheadedness or dizziness. he did present with a potassium of 2.6 and this was replenished in the ED peer. [facility] Past Medical History Medical History Benign essential hypertension BPH associated with nocturia Hyperlipidemia, unspecified Type 2 diabetes mellitus without complication, without long-term current use of insulin Surgical History Surgical History No history of previous surgery Family History Family History Mother Hypertension Father Family history of kidney disease Family history of coronary artery disease Other Cerebrovascular accident Social History Social History (Updated 06/15/23 @ 12:56 by Lisandra Walls PA-C) Social History: Patient is . 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 Lives at home with and son. Has a cat. Does not have health insurance right now and this weighs on him and his family daily. Smoking status: Never smoker Alcohol intake: never Substance use: never Substance use type: does not use Lack of Transportation: No Lack of Food: Never True Current Housing: I Have Housing Concerned About Future Housing: No Difficulty Paying Gas/Electric Bills: No Difficulty Paying for Meds: No Currently Unemployed: No Education: Associate Degree Difficulty w/ Childcare or Family Care: No Living arrangements: with family Occupation/Education: occupation Gender identity (if verbalized by the patient): Male Sexual Orientation (if Verbalized by the Patient): Straight or Heterosexual Spiritual care concerns: No Meds Home Medications and Allergies Home Medications Medication Instructions Recorded Confirmed Type pravastatin 40 mg tablet 40 mg PO QHS 01/31/23 06/15/23 History amlodipine 5 mg tablet 5 mg PO DAILY #90 tabs 03/06/23 06/15/23 Rx lisinopril 40 mg tablet 40 mg PO DAILY #90 tabs 03/06/23 06/15/23 Rx Allergies Allergy/AdvReac Type Severity Reaction Status Date / Time No Known Allergies Allergy Verified 06/15/23 09:02
--- NOTE | 2023-06-15 14:02 | WPDGICN ---
Assessment and Plan Assessment and plan (1) Large bowel obstruction: Code(s): K56.609 - Unspecified intestinal obstruction, unspecified as to partial versus complete obstruction Status: Acute Assessment and Plan: the CT scan suggested there is obstruction of the colon. He has not been vomiting. (2) Colonic mass: Code(s): K63.89 - Other specified diseases of intestine Status: Acute Assessment and Plan: The initial CT scan as well as the 1 from yesterday both show what appears to be a sigmoid colon mass. When I saw him a couple months ago we had suggested a colonoscopy. He want to check in to some financial issues 1st. He was working things out with [facility] in terms of payment. (3) Abnormal CT of the abdomen: Code(s): R93.5 - Abnormal findings on diagnostic imaging of other abdominal regions, including retroperitoneum Status: Acute Assessment and Plan: CT scan shows: Extensive wall thickening of sigmoid colon and rectum with associated at least partial large bowel obstruction at the level proximal sigmoid colon. There are extensive infiltrative/inflammatory changes in the perisigmoid mesentery. These findings are all similar to prior exam, and are suspicious for colonic malignancy versus possibility of infectious/inflammatory colitis. New hypodensity inferior right hepatic lobe lesion measuring 7.0 x 3.9 x 4.7 cm, suspicious for metastasis. Extensive maty hepatis and retroperitoneal lymphadenopathy, as well as mildly prominent perirectal lymph nodes, suspicious for metastatic lymphadenopathy, new from prior exam. New infiltrative changes in the left pararenal region anteriorly, which could reflect infiltrative metastatic disease/neoplasm versus possibly retroperitoneal hemorrhage. Increasing masslike thickening of the posterior urinary bladder wall, consistent with neoplastic/metastatic disease. (4) Weight loss: Code(s): R63.4 - Abnormal weight loss Status: Acute Assessment and Plan: he believes he has lost 40 lb so far this year. He denies vomiting he has a good appetite. (5) Hematochezia: Code(s): K92.1 - Melena Status: Acute Assessment and Plan: Over last couple weeks he has begun to see blood in his stool which was not happening when I saw him a couple months ago. Plan We will schedule him for colonoscopy to be done tomorrow. I told that because he may have a partial obstruction that we will spread out his prep over the next 12 hours or so. GI Consult Note Consult date/time: 06/15/23 14:02 HPI: Valerio Recinos is a 58 year old male Present to emergency room complaining of persistent diarrhea and blood in his stools. I had seen him in the office recently. He was seen by his primary care practitioner in early January with complaints of suprapubic and lower abdominal pain.? He attributed this to taking potassium.? At that time he also had mentioned he was feeling constipated.? A KUB in early March showed a moderate amount of fecal material in the colon.? He was then started on MiraLax and almost immediately began to have loose stools which got to the point where he was having a bowel movement every 10 or 15 minutes.? This is still occurring.? He did go the emergency room a few weeks ago where a CT scan was done that showed severe inflammation of the sigmoid colon.? He was sent home on Cipro and metronidazole.? he has lost a total of about 40 lb so far this year. now CT scan shows: Extensive wall thickening of sigmoid colon and rectum with associated at least partial large bowel obstruction at the level proximal sigmoid colon. There are extensive infiltrative/inflammatory changes in the perisigmoid mesentery. These findings are all similar to prior exam, and are suspicious for colonic malignancy versus possibility of infectious/inflammatory colitis. New hypodensity inferior right hepatic lobe lesion measuring 7.0 x 3.9 x 4.7
[2023-06-15] MEDS: BISACODYL 5 MG TABLET EC 10 MG PO ×2 (14:52→21:13)
[2023-06-15] MEDS: polyethylene glycoL 3350 238 GM BOTTLE PO (14:52)
[2023-06-15 21:42] LABS: Potassium 2.7 mmol/L (3.4-5.0)
[2023-06-15 21:47] LABS: Hematocrit 38.1 % (42.0-52.0); Hemoglobin 12.8 g/dL (14.0-18.0)
[2023-06-16] VITALS (13 sets, daily range): BP systolic 131–190; BP diastolic 84–102; PULSE 74–97; RESP 16–20; TEMP 36.1–36.6; O2SAT 97–100; BMI 27.1
[2023-06-16] MEDS: PIPERACILLN/TAZ 3.375GM/NS50ML 3.375 GM/50 ML BAG IVPB ×4 (00:34→17:55)
[2023-06-16] MEDS: BISACODYL 5 MG TABLET EC 10 MG PO (03:12)
[2023-06-16] MEDS: MAGNESIUM CITRATE 300 ML BTL 180 ML PO (05:14)
[2023-06-16] MEDS: ONDANSETRON INJ 4 MG/2 ML VIAL IV PUSH (05:20)
[2023-06-16] MEDS: hydrALAZINE HCL 20 MG/ML VIAL 10 MG IV PUSH (05:57)
[2023-06-16] MEDS: MORPHINE SULFATE (*CRX) 4 MG/ML INJ IV PUSH ×2 (06:14→14:48)
[2023-06-16] MEDS: PANTOPRAZOLE SODIUM IV 40 MG VIAL IV PUSH (08:16)
[2023-06-16] MEDS: KCL 40 MEQ/0.9% SOD CHL 1,000 ML 100 ML IV CONT (08:16)
[2023-06-16] MEDS: amLODIPine BESYLATE 5 MG TABLET PO (08:16)
[2023-06-16] MEDS: lisinopriL 20 MG TABLET 40 MG PO (08:16)
[2023-06-16 08:40] LABS: Basophils Percent Auto 0.3 % (0.2-1.2); Eosinophils Absolute Auto 0.2 K/mm3 (0-0.3); Eosinophils Percent Auto 1.4 % (0-4.4); Hematocrit 35.8 % (42.0-52.0); Immature Granulocyte Absolute 0.06 K/mm3 (0.00-0.031); Immature Granulocyte Percent A 0.5 % (0-0.5); Lymphocytes Absolute Auto 0.61 K/mm3 (0.9-3.2); Lymphocytes Percent Auto 5.5 % (18.3-44.2); Mean Corpuscular HGB Conc 33.5 g/dl (32-36); Mean Corpuscular Hemoglobin 29.5 pg (26-34); Mean Platelet Volume 10.2 fl (7.4-10.4); Monocytes Absolute Auto 0.8 K/mm3 (0.1-0.6); Monocytes Percent Auto 6.8 % (2.6-8.5); Neutrophils Absolute Auto 9.4 K/mm3 (1.3-6.7); Neutrophils Percent Auto 85.5 % (45.5-73.1); Platelet Count Result 415 k/mm3 (150-375); Red Blood Count 4.07 M/mm3 (4.6-6.20); Red Cell Distribution Width 14.5 % (11.5-14.5); White Blood Count 11.1 K/mm3 (4.5-10.0)
[2023-06-16 08:58] LABS: Anion Gap 7 mmol/L (8-16); Blood Urea Nitrogen 11 mg/dL (9-20); Calcium 8.5 mg/dL (8.4-10.2); Carbon Dioxide 29 mmol/L (22-30); Chloride 100 mmol/L (98-107); Estimated CRCL calculation 72 ml/min; Estimated Glomerular Filt Rate > 60; Glucose 148 mg/dL (65-110); Potassium 2.4 mmol/L (3.4-5.0); Sodium 136 mmol/L (137-145)
[2023-06-16] MEDS: POTASSIUM CHLORIDE INJ 40 MEQ in SODIUM CHLORIDE 0.9% IV 500 ML 130 MEQ IVPB (09:43)
--- NOTE | 2023-06-16 10:29 | PM.PNGS ---
Progress Note: A&P Assessment and Plan (1) Large bowel obstruction: Code(s): K56.609 - Unspecified intestinal obstruction, unspecified as to partial versus complete obstruction Status: Acute Assessment and Plan: Most likely the mass in the proximal sigmoid colon is colon cancer. Tissue diagnosis still has to be established the patient is getting a colonoscopy this afternoon. He does appear to have a possible liver lesion and this would be best characterized with a CT scan abdomen pelvis with IV contrast. There were biopsy of the mass may also need to be performed. Once tissue diagnosis has been made and if the diagnosis is colon cancer then I would recommend Oncology consult to see a starting neoadjuvant chemotherapy would be able to down stage this patient. He may need a diverting loop colostomy in the meantime due to his high-grade obstruction. Other option could be placement of an colonic stent by a interventional endoscopist to bridge him while he gets chemotherapy. Will continue to follow. His CEA level is 53 which is also suggestive of metastatic colon cancer likely stage IV. This was discussed with the patient and his at the bedside today. They understand. Subjective Subjective Date/Time Seen: 06/16/23 10:29 Interval history: Patient is still having nonbloody diarrhea. Multiple episodes a day still. Feels a little bloated but on the minimal diffuse abdominal pain. Some nausea and 1 episode of emesis earlier today. Patient is set to get a colonoscopy in this afternoon by Dr. Goodwin. High suspicion for metastatic colon cancer with high-grade obstruction of the sigmoid colon by neoplasm. Liver lesion noted on CT scan likely metastatic. Mesenteric lymphadenopathy also suggestive of cancer and CEA level is markedly elevated at 53. This was discussed with the patient and his at the bedside this morning. Exam GI: Other: Abdomen is moderately distended. Soft and only minimally tender. No surgical scars on the abdomen. No ventral hernias. No guarding or peritoneal signs. Objective Data Vital Signs Vital Signs: Vital Signs - 24 hr 06/15/23 12:00 06/15/23 16:00 06/15/23 14:00 Temperature 36.4 C Pulse Rate 77 88 81 Respiratory Rate 16 Blood Pressure 155/94 H Pulse Oximetry 99 Oxygen Delivery 06/15/23 22:00 06/15/23 20:00 06/15/23 20:00 Temperature 36.9 C Pulse Rate 85 98 Respiratory Rate 16 Blood Pressure 186/110 H Pulse Oximetry 100 Oxygen Delivery Room Air 06/16/23 00:00 06/16/23 04:00 06/16/23 06:00 Temperature 36.5 C Pulse Rate 79 81 89 Respiratory Rate 16 Blood Pressure 190/102 H Pulse Oximetry 99 Oxygen Delivery 06/16/23 08:14 06/16/23 08:00 Temperature Pulse Rate 86 Respiratory Rate Blood Pressure 143/85 H Pulse Oximetry Oxygen Delivery Room Air Intake/Output Intake/Output: Intake & Output 06/13/23 06/14/23 06/15/23 06/16/23 23:59 23:59 23:59 23:59 Intake Total 3370 3450 Balance 3370 3450 Meds/Results Medications: Active Medications Generic Name Dose Route Start Last Admin Trade Name Freq PRN Reason Stop Dose Admin Acetaminophen 650 mg 06/15/23 08:36 Acetaminophen 325 Mg Tablet PO Q6H PRN Mild Pain (1-3) or Fever Hydrocodone Bitart/Acetaminophen 1 tab 06/15/23 08:36 Hydrocodone/Acetaminophen (*Crx) 5-325 Mg Tablet PO Q6H PRN Pain Rated 4-6 Amlodipine Besylate 5 mg 06/16/23 09:00 06/16/23 08:16 Amlodipine Besylate 5 Mg Tablet PO 5 mg DAILY JASON Administration Hydralazine HCl 10 mg 06/16/23 07:44 Hydralazine Hcl 20 Mg/Ml Vial IV PUSH Q8H PRN Blood Pressure - High Piperacillin/Tazobactam/Dextrose 3.375 gm in 50 mls @ 100 mls/hr 06/15/23 12:00 06/16/23 05:15 Zosyn 3.375 Gm/Ns 50 Ml IVPB 100 mls/hr Q6H JASON Administration Potassium Chloride/Sodium Chloride 1,000 mls @ 100 mls/hr 06/15/23 10:00 06/16/23
--- NOTE | 2023-06-16 11:07 | WPDANESEPPF ---
Anes - Initial Pre Proc Eval Procedure: Operation Date: 06/16/23 13:30 Proposed Procedures p Colonoscopy - Selvin Goodwin MD Date/Time: 06/16/23 11:07 Surgeon: Yuri Caputo MD Pre Op Diagnosis: colitis,hypokalemia,abdominal pain Patient Data Age: 58 Gender: M Height: 1.7 m Weight: 78.63 kg Last Vital Signs Temp 36.5 C 06/16/23 06:00 Pulse 86 06/16/23 08:14 Resp 16 06/16/23 06:00 BP 143/85 H 06/16/23 08:14 Pulse Ox 99 06/16/23 06:00 O2 Del Method Room Air 06/16/23 08:00 Allergies Allergy/AdvReac Type Severity Reaction Status Date / Time No Known Allergies Allergy Verified 06/16/23 12:09 Home Medications Medication Instructions Recorded Confirmed Type pravastatin 40 mg tablet 40 mg PO QHS 01/31/23 06/15/23 History amlodipine 5 mg tablet 5 mg PO DAILY #90 tabs 03/06/23 06/15/23 Rx lisinopril 40 mg tablet 40 mg PO DAILY #90 tabs 03/06/23 06/15/23 Rx Laboratory Tests 06/15/23 06/15/23 06/15/23 09:17 09:53 20:36 WBC RBC Hgb 12.8 L g/dL (14.0-18.0) Hct 38.1 L % (42.0-52.0) MCV MCH MCHC RDW Plt Count MPV Immature Gran % (Auto) Neut % (Auto) Lymph % (Auto) [place] % (Auto) Eos % (Auto) Baso % (Auto) Lymph # (Auto) [place] # (Auto) Eos # (Auto) Baso # (Auto) Abs Immat Gran (auto) Absolute Neuts (auto) Absolute Nucleated RBC Nucleated RBC % Sodium Potassium 2.7 L* mmol/L (3.4-5.0) Chloride Carbon Dioxide Anion Gap BUN Creatinine Estim Creat Clear Calc Estimated GFR Glucose Calcium Carcinoembryonic Ag 46.5 H ng/mL (0.0-3.0) C. difficile (PCR) Negative (NEGATIVE) 06/16/23 08:00 WBC 11.1 H K/mm3 (4.5-10.0) RBC 4.07 L M/mm3 (4.6-6.20) Hgb 12.0 L g/dL (14.0-18.0) Hct 35.8 L % (42.0-52.0) MCV 88.0 fl (80-100) MCH 29.5 pg (26-34) MCHC 33.5 g/dl (32-36) RDW 14.5 % (11.5-14.5) Plt Count 415 H k/mm3 (150-375) MPV 10.2 fl (7.4-10.4) Immature Gran % (Auto) 0.5 % (0-0.5) Neut % (Auto) 85.5 H % (45.5-73.1) Lymph % (Auto) 5.5 L % (18.3-44.2) [place] % (Auto) 6.8 % (2.6-8.5) Eos % (Auto) 1.4 % (0-4.4) Baso % (Auto) 0.3 % (0.2-1.2) Lymph # (Auto) 0.61 L K/mm3 (0.9-3.2) [place] # (Auto) 0.8 H K/mm3 (0.1-0.6) Eos # (Auto) 0.2 K/mm3 (0-0.3) Baso # (Auto) 0.0 K/mm3 (0.0-0.1) Abs Immat Gran (auto) 0.06 H K/mm3 (0.00-0.031) Absolute Neuts (auto) 9.4 H K/mm3 (1.3-6.7) Absolute Nucleated RBC 0.0 K/mm3 (0.0-0.012) Nucleated RBC % 0.0 % (0.0-0.2) Sodium 136 L mmol/L (137-145) Potassium 2.4 L* mmol/L (3.4-5.0) Chloride 100 mmol/L (98-107) Carbon Dioxide 29 mmol/L (22-30) Anion Gap 7 L mmol/L (8-16) BUN 11 mg/dL (9-20) Creatinine 0.90 mg/dL (0.7-1.3) Estim Creat Clear Calc 72 ml/min Estimated GFR > 60 (59 - ) Glucose 148 H mg/dL (65-110) Calcium 8.5 mg/dL (8.4-10.2) Carcinoembryonic Ag C. difficile (PCR) Patient hx anesthesia problems: none Family hx anesthesia problems: none Results Review: All pre-operative results and documents have been reviewed as part of the pre-operative evaluation. [facility] Past Medical History Medical History Benign essential hypertension BPH associated with nocturia Hyperlipidemia, unspecified Type 2 diabetes mellitus without complication, without long-term current use of insulin Surgical History Surgical History (Reviewed 06/15/23 @ 1
--- NOTE | 2023-06-16 11:49 | PC.NURSE ---
PT to GI lab via wheelchair at 11:49.
--- NOTE | 2023-06-16 11:53 | PM.IMPN ---
Progress Note: A&P Assessment and Plan (1) Colonic mass: Code(s): K63.89 - Other specified diseases of intestine Status: Acute Assessment and Plan: Patient presented with abdominal pain, diarrhea and hematochezia. CT abdomen pelvis revealing extensive wall thickening of the sigmoid colon suspicious for colonic malignancy versus possibility of infectious / inflammatory colitis. with possible metastases in the liver, bladder and lymph nodes. GI and General surgery consulted. Colonoscopy planned for today Analgesics and antiemetics p.r.n. CEA elevated at 46.5 (2) Large bowel obstruction: Code(s): K56.609 - Unspecified intestinal obstruction, unspecified as to partial versus complete obstruction Status: Acute Assessment and Plan: Likely due to colonic mass. Await further recommendations from GI. (3) Hematochezia: Code(s): K92.1 - Melena Status: Acute Assessment and Plan: patient has experienced hematochezia for the past couple weeks. Three point drop in H&H since March of 2023. Monitor H&H Transfuse if hemoglobin less than 7 (4) Acute hypokalemia: Code(s): E87.6 - Hypokalemia Status: Acute Assessment and Plan: Patient presented with a potassium of 2.6. Patient received 20 mEq IV in the ED. Repeat potassium was still 2.6. Patient was prescribed 40 mEq IV potassium to be given and then started on potassium chloride/sodium chloride 9/15 potassium 2.4, K rider added to fluids Monitor BMP and replace as needed. (5) Liver lesion: Code(s): K76.9 - Liver disease, unspecified Status: Acute Assessment and Plan: Liver hypodensity seen on CT scan suspicious for metastases. Total bili, AST and ALT all within normal limits. Alk-phos elevated at 224 (6) Abdominal pain: Code(s): R10.9 - Unspecified abdominal pain Status: Acute Assessment and Plan: Likely due to colonic mass/obstruction. Analgesics and anti emetics p.r.n. (7) Benign essential hypertension: Code(s): I10 - Essential (primary) hypertension Status: Chronic Assessment and Plan: Continue home amlodipine and lisinopril. Subjective Date/time seen: 06/16/23 11:53 Interval history: Patient complains fatigue and weakness today. He had diarrhea all night although he did take colon prep due to being scheduled for colonoscopy today. His potassium remains low and actually dropped from admission. He denies any blood in his stool. He did have some nausea vomiting early this morning but thinks that is likely due to the prep. Awaiting results from colonoscopy for some more answers. Exam Narrative: GENERAL: Comfortable, no acute distress HENMT: moist mucous membranes EYES: EOM intact b/l NECK: no lymphadenopathy RESPIRATORY: clear to auscultation CARDIO: RRR GI: soft, Right lower quadrant tenderness palpation, bowel sounds present SKIN: no rashes EXTREMITIES: no edema, redness or tenderness Objective Data Vital Signs Vital Signs: Vital Signs - 24 hr 06/15/23 12:00 06/15/23 16:00 06/15/23 14:00 Temperature 97.6 F Pulse Rate 77 88 81 Respiratory Rate 16 Blood Pressure 155/94 H Pulse Oximetry 99 Oxygen Delivery 06/15/23 22:00 06/15/23 20:00 06/15/23 20:00 Temperature 98.4 F Pulse Rate 85 98 Respiratory Rate 16 Blood Pressure 186/110 H Pulse Oximetry 100 Oxygen Delivery Room Air 06/16/23 00:00 06/16/23 04:00 06/16/23 06:00 Temperature 97.7 F Pulse Rate 79 81 89 Respiratory Rate 16 Blood Pressure 190/102 H Pulse Oximetry 99 Oxygen Delivery 06/16/23 08:14 06/16/23 08:00 06/16/23 08:00 Temperature Pulse Rate 86 83 Respiratory Rate Blood Pressure 143/85 H Pulse Oximetry Oxygen Delivery Room Air Intake/Output Intake/Output: Intake & Output 06/13/23 06/14/23 06/15/23 06/16/23 23:59
[2023-06-16] MEDS: LACTATED RINGERS 1,000 ML 150 ML IV CONT (12:16)
--- NOTE | 2023-06-16 14:09 | PC.NURSE ---
Pt back from GI lab.
[2023-06-16 14:57] LABS: Potassium 2.7 mmol/L (3.4-5.0)
[2023-06-16 19:54] LABS: Potassium 2.5 mmol/L (3.4-5.0)
[2023-06-16] MEDS: LOPERAMIDE HCL 2 MG CAPSULE 4 MG PO (20:35)
[2023-06-16 21:30] LABS: Glucose Point of Care 146 mg/dl (65-105)
[2023-06-17] VITALS (10 sets, daily range): BP systolic 151–158; BP diastolic 87–93; PULSE 70–98; RESP 16–20; TEMP 36.1–36.6; O2SAT 95–99
[2023-06-17] MEDS: PIPERACILLN/TAZ 3.375GM/NS50ML 3.375 GM/50 ML BAG IVPB ×5 (00:07→23:05)
[2023-06-17 00:29] LABS: Anion Gap 6 mmol/L (8-16); Blood Urea Nitrogen 10 mg/dL (9-20); Calcium 8.2 mg/dL (8.4-10.2); Carbon Dioxide 29 mmol/L (22-30); Chloride 103 mmol/L (98-107); Estimated CRCL calculation 80 ml/min; Estimated Glomerular Filt Rate > 60; Glucose 117 mg/dL (65-110); Potassium 2.4 mmol/L (3.4-5.0); Sodium 138 mmol/L (137-145)
[2023-06-17] MEDS: POTASSIUM CHLORIDE INJ 40 MEQ in SODIUM CHLORIDE 0.9% IV 500 ML 130 MEQ IVPB ×3 (01:13→18:26)
[2023-06-17] MEDS: HYDROcodone/acetaminophen (*CRX) 5-325 MG TABLET 1 TAB PO ×2 (02:28→23:04)
[2023-06-17] MEDS: MORPHINE SULFATE (*CRX) 4 MG/ML INJ IV PUSH ×6 (05:54→20:48)
[2023-06-17 06:46] LABS: Hematocrit 32.6 % (42.0-52.0); Hemoglobin 10.7 g/dL (14.0-18.0); Mean Corpuscular HGB Conc 32.8 g/dl (32-36); Mean Corpuscular Hemoglobin 29.2 pg (26-34); Mean Corpuscular Volume 89.1 fl (80-100); Mean Platelet Volume 10.4 fl (7.4-10.4); Platelet Count Result 392 k/mm3 (150-375); Red Blood Count 3.66 M/mm3 (4.6-6.20); Red Cell Distribution Width 14.6 % (11.5-14.5); White Blood Count 6.4 K/mm3 (4.5-10.0)
[2023-06-17 07:02] LABS: Alanine Aminotransferase 31 U/L (6-50); Albumin Level 3.4 g/dL (3.5-5.1); Alkaline Phosphatase 207 U/L (38-126); Anion Gap 6 mmol/L (8-16); Aspartate Amino Transferase 57 U/L (17-59); Bilirubin,Total 0.6 mg/dL (0.2-1.3); Blood Urea Nitrogen 10 mg/dL (9-20); Calcium 8.1 mg/dL (8.4-10.2); Carbon Dioxide 29 mmol/L (22-30); Chloride 105 mmol/L (98-107); Estimated CRCL calculation 80 ml/min; Estimated Glomerular Filt Rate > 60; Glucose 101 mg/dL (65-110); Potassium 2.4 mmol/L (3.4-5.0); Sodium 140 mmol/L (137-145)
[2023-06-17] MEDS: KCL 40 MEQ/0.9% SOD CHL 1,000 ML 100 ML IV CONT (09:09)
[2023-06-17] MEDS: PANTOPRAZOLE SODIUM IV 40 MG VIAL IV PUSH (09:13)
--- NOTE | 2023-06-17 12:35 | PM.IMPN ---
Progress Note: A&P Assessment and Plan (1) Colonic mass: Code(s): K63.89 - Other specified diseases of intestine Status: Acute Assessment and Plan: Patient presented with abdominal pain, diarrhea and hematochezia. CT abdomen pelvis revealing extensive wall thickening of the sigmoid colon suspicious for colonic malignancy versus possibility of infectious / inflammatory colitis. with possible metastases in the liver, bladder and lymph nodes. GI and General surgery consulted. Colonoscopy planned for today Analgesics and antiemetics p.r.n. CEA elevated at 46.5 (2) Large bowel obstruction: Code(s): K56.609 - Unspecified intestinal obstruction, unspecified as to partial versus complete obstruction Status: Acute Assessment and Plan: Likely due to colonic mass. Await further recommendations from GI. (3) Hematochezia: Code(s): K92.1 - Melena Status: Acute Assessment and Plan: patient has experienced hematochezia for the past couple weeks. Three point drop in H&H since March of 2023. Monitor H&H Transfuse if hemoglobin less than 7 (4) Acute hypokalemia: Code(s): E87.6 - Hypokalemia Status: Acute Assessment and Plan: Patient presented with a potassium of 2.6. Patient received 20 mEq IV in the ED. Repeat potassium was still 2.6. Patient was prescribed 40 mEq IV potassium to be given and then started on potassium chloride/sodium chloride 9/15 potassium 2.4, K rider added to fluids Monitor BMP and replace as needed. (5) Liver lesion: Code(s): K76.9 - Liver disease, unspecified Status: Acute Assessment and Plan: Liver hypodensity seen on CT scan suspicious for metastases. Total bili, AST and ALT all within normal limits. Alk-phos elevated at 224 (6) Abdominal pain: Code(s): R10.9 - Unspecified abdominal pain Status: Acute Assessment and Plan: Likely due to colonic mass/obstruction. Analgesics and anti emetics p.r.n. (7) Benign essential hypertension: Code(s): I10 - Essential (primary) hypertension Status: Chronic Assessment and Plan: Continue home amlodipine and lisinopril. Subjective Date/time seen: 06/17/23 12:35 Interval history: Patient with increased abdominal pain and abdominal distension today. Did repeat abdomen pelvis which did not show much change from scan done 2 days ago. He continues to have frequent diarrhea. Patient has no appetite. Patient did have some vomiting last night. General surgery evaluated patient and suggesting NG tube if patient continues to have vomiting. Exam Narrative: GENERAL: Comfortable, no acute distress HENMT: moist mucous membranes EYES: EOM intact b/l NECK: no lymphadenopathy RESPIRATORY: clear to auscultation CARDIO: RRR GI: Distended, diffuse tenderness palpation, hypoactive bowel sounds SKIN: no rashes EXTREMITIES: no edema, redness or tenderness Objective Data Vital Signs Vital Signs: Vital Signs - 24 hr 06/16/23 13:42 06/16/23 13:52 06/16/23 14:02 Temperature Pulse Rate 82 77 78 Respiratory Rate 18 16 18 Blood Pressure 131/86 132/89 151/95 H Pulse Oximetry 97 97 97 Oxygen Delivery Room Air Room Air Room Air 06/16/23 14:00 06/16/23 16:00 06/16/23 20:00 Temperature 97.7 F Pulse Rate 74 91 Respiratory Rate 16 Blood Pressure 146/92 H Pulse Oximetry 99 Oxygen Delivery Room Air 06/16/23 22:00 06/16/23 20:00 06/17/23 00:00 Temperature 97.8 F Pulse Rate 83 97 70 Respiratory Rate 18 Blood Pressure 157/91 H Pulse Oximetry 99 Oxygen Delivery 06/17/23 04:00 06/17/23 06:00 06/17/23 08:00 Temperature 96.9 F L Pulse Rate 74 75 Respiratory Rate 20 Blood Pressure 152/91 H Pulse Oximetry 99 Oxygen Delivery Room Air 06/17/23 11:48 Temperature Pulse Rate Respiratory Rate Blood Pressure Pulse Oximetry
[2023-06-17] MEDS: DIPHENOXYLATE/ATROPINE (*CRX) 2.5 MG TABLET 1 TABLET PO ×5 (13:07→20:48)
[2023-06-17] MEDS: POTASSIUM CHLORIDE 20 MEQ ER TABLET 40 MEQ PO ×2 (13:14→17:46)
[2023-06-17 13:18] LABS: Basophils Absolute Auto 0.1 K/mm3 (0.0-0.1); Basophils Percent Auto 0.9 % (0.2-1.2); Eosinophils Absolute Auto 0.3 K/mm3 (0-0.3); Eosinophils Percent Auto 3.6 % (0-4.4); Hematocrit 35.3 % (42.0-52.0); Hemoglobin 11.6 g/dL (14.0-18.0); Immature Granulocyte Absolute 0.02 K/mm3 (0.00-0.031); Immature Granulocyte Percent A 0.2 % (0-0.5); Lymphocytes Absolute Auto 1.18 K/mm3 (0.9-3.2); Lymphocytes Percent Auto 14.6 % (18.3-44.2); Mean Corpuscular HGB Conc 32.9 g/dl (32-36); Mean Corpuscular Hemoglobin 29.3 pg (26-34); Mean Corpuscular Volume 89.1 fl (80-100); Monocytes Absolute Auto 0.7 K/mm3 (0.1-0.6); Monocytes Percent Auto 8.8 % (2.6-8.5); Neutrophils Absolute Auto 5.8 K/mm3 (1.3-6.7); Neutrophils Percent Auto 71.9 % (45.5-73.1); Platelet Count Result 410 k/mm3 (150-375); Red Blood Count 3.96 M/mm3 (4.6-6.20); Red Cell Distribution Width 14.9 % (11.5-14.5); White Blood Count 8.1 K/mm3 (4.5-10.0)
--- NOTE | 2023-06-17 13:27 | PM.PNGS ---
Progress Note: A&P Assessment and Plan (1) Colonic mass: Code(s): K63.89 - Other specified diseases of intestine Status: Acute Assessment and Plan: Colonoscopy results reviewed. Large mass appears almost completely obstructing. Patient still has a little bowel function. If nausea/bloating continues, then would recommend NG placement and NPO With near complete obstruction, patient will need diverting colostomy which will likely be arranged for Monday Suspicious for Stage 4 Colon/Rectal adenocarcinoma--will need to be evaluated by Oncology soon. (2) Large bowel obstruction: Code(s): K56.609 - Unspecified intestinal obstruction, unspecified as to partial versus complete obstruction Status: Acute (3) Hematochezia: Code(s): K92.1 - Melena Status: Acute (4) Acute hypokalemia: Code(s): E87.6 - Hypokalemia Status: Acute Assessment and Plan: Replaced per hospitalist (5) Liver lesion: Code(s): K76.9 - Liver disease, unspecified Status: Acute (6) Abdominal pain: Code(s): R10.9 - Unspecified abdominal pain Status: Acute (7) Benign essential hypertension: Code(s): I10 - Essential (primary) hypertension Status: Chronic Subjective Subjective Date/Time Seen: 06/17/23 13:27 Interval history: Patient having bloating and abdominal pain. Vomited last night. Having liquid BM's, but not passing much flatus. Not much appetite. Exam GI: Inspection: distended GI Palp: Yes Soft to palpation, Yes Tenderness to palpation present (GI) (mild generalized), No Guarding due to palpation present (GI) and No Rebound tenderness present Percussion: Yes tympanic to percussion Objective Data Vital Signs Vital Signs: Vital Signs - 24 hr 06/16/23 13:42 06/16/23 13:52 06/16/23 14:02 Temperature Pulse Rate 82 77 78 Respiratory Rate 18 16 18 Blood Pressure 131/86 132/89 151/95 H Pulse Oximetry 97 97 97 Oxygen Delivery Room Air Room Air Room Air 06/16/23 14:00 06/16/23 16:00 06/16/23 20:00 Temperature 36.5 C Pulse Rate 74 91 Respiratory Rate 16 Blood Pressure 146/92 H Pulse Oximetry 99 Oxygen Delivery Room Air 06/16/23 22:00 06/16/23 20:00 06/17/23 00:00 Temperature 36.6 C Pulse Rate 83 97 70 Respiratory Rate 18 Blood Pressure 157/91 H Pulse Oximetry 99 Oxygen Delivery 06/17/23 04:00 06/17/23 06:00 06/17/23 08:00 Temperature 36.1 C L Pulse Rate 74 75 Respiratory Rate 20 Blood Pressure 152/91 H Pulse Oximetry 99 Oxygen Delivery Room Air 06/17/23 11:48 Temperature Pulse Rate Respiratory Rate Blood Pressure Pulse Oximetry 95 Oxygen Delivery Room Air Intake/Output Intake/Output: Intake & Output 06/14/23 06/15/23 06/16/23 06/17/23 23:59 23:59 23:59 23:59 Intake Total 3370 4050 1300 Output Total 8 Balance 3370 4042 1300 Meds/Results Medications: Active Medications Generic Name Dose Route Start Last Admin Trade Name Freq PRN Reason Stop Dose Admin Acetaminophen 650 mg 06/15/23 08:36 Acetaminophen 325 Mg Tablet PO Q6H PRN Mild Pain (1-3) or Fever Hydrocodone Bitart/Acetaminophen 1 tab 06/15/23 08:36 06/17/23 02:28 Hydrocodone/Acetaminophen (*Crx) 5-325 Mg Tablet PO 1 tab Q6H PRN Administration Pain Rated 4-6 Amlodipine Besylate 5 mg 06/16/23 09:00 06/17/23 11:44 Amlodipine Besylate 5 Mg Tablet PO Not Given DAILY JASON Diphenoxylate HCl/Atropine 1 tablet 06/17/23 12:36 06/17/23 13:07 Diphenoxylate/Atropine (*Crx) 2.5 Mg Tablet PO 1 tablet PRN PRN Administration Diarrhea Hydralazine HCl 10 mg 06/16/23 07:44 Hydralazine Hcl 20 Mg/Ml Vial IV PUSH Q8H PRN Blood Pressure - High Piperacillin/Tazobactam/Dextrose 3.375 gm in 50 mls @ 100 mls/hr 06/15/23 12:00 06/17/23 12:12 Zosyn 3.375 Gm/Ns 50 Ml IVPB Infused Q6H JASON Infusion Potassium Chloride/Sodium Chloride ,00
[2023-06-17 13:29] LABS: Potassium 2.7 mmol/L (3.4-5.0)
[2023-06-17 16:43] LABS: Potassium 2.6 mmol/L (3.4-5.0)
[2023-06-18] VITALS (10 sets, daily range): BP systolic 151–166; BP diastolic 93–101; PULSE 71–98; RESP 14–18; TEMP 36.4–36.8; O2SAT 97–98
[2023-06-18] MEDS: HYDROcodone/acetaminophen (*CRX) 5-325 MG TABLET 1 TAB PO (04:41)
[2023-06-18] MEDS: PIPERACILLN/TAZ 3.375GM/NS50ML 3.375 GM/50 ML BAG IVPB ×3 (04:42→17:29)
[2023-06-18] MEDS: KCL 40 MEQ/0.9% SOD CHL 1,000 ML 100 ML IV CONT ×2 (04:42→18:10)
[2023-06-18] MEDS: DIPHENOXYLATE/ATROPINE (*CRX) 2.5 MG TABLET 1 TABLET PO (04:42)
[2023-06-18 06:42] LABS: Potassium 2.5 mmol/L (3.4-5.0)
[2023-06-18] MEDS: MORPHINE SULFATE (*CRX) 4 MG/ML INJ IV PUSH ×4 (07:48→20:57)
[2023-06-18] MEDS: KCL 20 MEQ/SW 100 ML 100 ML 50 MEQ IVPB ×3 (07:53→18:06)
[2023-06-18] MEDS: amLODIPine BESYLATE 5 MG TABLET PO (08:02)
[2023-06-18] MEDS: PANTOPRAZOLE SODIUM IV 40 MG VIAL IV PUSH (08:03)
[2023-06-18] MEDS: POTASSIUM CHLORIDE 20 MEQ ER TABLET 40 MEQ PO ×3 (08:03→16:42)
[2023-06-18] MEDS: lisinopriL 20 MG TABLET 40 MG PO (08:03)
[2023-06-18 08:15] LABS: Magnesium 1.9 mg/dL (1.6-2.3)
[2023-06-18 08:26] LABS: Alanine Aminotransferase 27 U/L (6-50); Albumin Level 3.2 g/dL (3.5-5.1); Alkaline Phosphatase 222 U/L (38-126); Anion Gap 3 mmol/L (8-16); Aspartate Amino Transferase 48 U/L (17-59); Bilirubin,Total 0.6 mg/dL (0.2-1.3); Blood Urea Nitrogen 7 mg/dL (9-20); Carbon Dioxide 29 mmol/L (22-30); Chloride 106 mmol/L (98-107); Estimated CRCL calculation 80 ml/min; Estimated Glomerular Filt Rate > 60; Glucose 148 mg/dL (65-110); Sodium 138 mmol/L (137-145)
[2023-06-18 08:56] LABS: Hematocrit 31.9 % (42.0-52.0); Hemoglobin 10.4 g/dL (14.0-18.0); Mean Corpuscular HGB Conc 32.6 g/dl (32-36); Mean Corpuscular Hemoglobin 29.3 pg (26-34); Mean Corpuscular Volume 89.9 fl (80-100); Mean Platelet Volume 10.9 fl (7.4-10.4); Platelet Count Result 368 k/mm3 (150-375); Red Blood Count 3.55 M/mm3 (4.6-6.20); Red Cell Distribution Width 15.1 % (11.5-14.5); White Blood Count 7.7 K/mm3 (4.5-10.0)
[2023-06-18] MEDS: MAGNESIUM SULF 2 GM/WATER 50ML 2 GM/50 ML BAG IVPB (10:17)
--- NOTE | 2023-06-18 11:27 | PM.IMPN ---
Progress Note: A&P Assessment and Plan (1) Colonic mass: Code(s): K63.89 - Other specified diseases of intestine Status: Acute Assessment and Plan: Patient presented with abdominal pain, diarrhea and hematochezia. CT abdomen pelvis revealing extensive wall thickening of the sigmoid colon suspicious for colonic malignancy versus possibility of infectious / inflammatory colitis. with possible metastases in the liver, bladder and lymph nodes. GI and General surgery consulted. Colonoscopy planned for today Analgesics and antiemetics p.r.n. CEA elevated at 46.5 (2) Large bowel obstruction: Code(s): K56.609 - Unspecified intestinal obstruction, unspecified as to partial versus complete obstruction Status: Acute Assessment and Plan: Likely due to colonic mass. GI and General surgery consulted. Diverting colostomy planned for tomorrow. (3) Hematochezia: Code(s): K92.1 - Melena Status: Acute Assessment and Plan: patient has experienced hematochezia for the past couple weeks. Three point drop in H&H since March of 2023. Monitor H&H Transfuse if hemoglobin less than 7 (4) Acute hypokalemia: Code(s): E87.6 - Hypokalemia Status: Acute Assessment and Plan: Patient presented with a potassium of 2.6. Patient received 20 mEq IV in the ED. Repeat potassium was still 2.6. Patient was prescribed 40 mEq IV potassium to be given and then started on potassium chloride/sodium chloride 06/16 potassium 2.4, K rider added to fluids 06/18 Patient's potassium remains between 2.5-2.7. Continue p.o. and IV potassium scheduled. Monitor BMP and replace as needed. (5) Liver lesion: Code(s): K76.9 - Liver disease, unspecified Status: Acute Assessment and Plan: Liver hypodensity seen on CT scan suspicious for metastases. Total bili, AST and ALT all within normal limits. Alk-phos elevated at 224 But trending down (6) Abdominal pain: Code(s): R10.9 - Unspecified abdominal pain Status: Acute Assessment and Plan: Likely due to colonic mass/obstruction. Analgesics and anti emetics p.r.n. (7) Benign essential hypertension: Code(s): I10 - Essential (primary) hypertension Status: Chronic Assessment and Plan: Continue home amlodipine and lisinopril. Subjective Date/time seen: 06/18/23 11:27 Interval history: Patient continues to have abdominal pain although it has somewhat improved since yesterday. Patient's diarrhea has slowed down to every 2-3 hours rather than several times an hour. Plan to get diverting colostomy tomorrow. He has not had any more vomiting. He states that he was able to eat a little bit and tolerated it well. Continues to have hypokalemia. Exam Narrative: GENERAL: Comfortable, no acute distress HENMT: moist mucous membranes EYES: EOM intact b/l NECK: no lymphadenopathy RESPIRATORY: clear to auscultation CARDIO: RRR GI: Distended, diffuse tenderness palpation, hypoactive bowel sounds SKIN: no rashes EXTREMITIES: no edema, redness or tenderness Objective Data Vital Signs Vital Signs: Vital Signs - 24 hr 06/17/23 11:48 06/17/23 14:00 06/17/23 12:00 Temperature 97.6 F Pulse Rate 81 70 Respiratory Rate 16 Blood Pressure 151/93 H Pulse Oximetry 95 97 Oxygen Delivery Room Air 06/17/23 16:00 06/17/23 22:00 06/17/23 20:00 Temperature 98 F Pulse Rate 98 91 Respiratory Rate 18 Blood Pressure 158/87 H Pulse Oximetry 98 Oxygen Delivery Room Air 06/17/23 20:00 06/18/23 00:00 06/18/23 04:00 Temperature Pulse Rate 74 71 98 Respiratory Rate Blood Pressure Pulse Oximetry Oxygen Delivery 06/18/23 06:00 06/18/23 08:12 06/18/23 08:00 Temperature 97.7 F Pulse Rate 79 75 Respiratory Rate 18 Blood Pressure 151/96 H 153/93 H Pulse Oximetry 97 97 97 Oxygen De
[2023-06-18] MEDS: HYDROcodone/acetaminophen (*CRX) 10-325 MG TABLET 1 TAB PO ×2 (12:03→18:25)
--- NOTE | 2023-06-18 12:24 | PM.PNGS ---
Progress Note: A&P Assessment and Plan (1) Colonic mass: Code(s): K63.89 - Other specified diseases of intestine Status: Acute Assessment and Plan: Colonoscopy results reviewed. Large mass appears almost completely obstructing. Patient still has a little bowel function. If nausea/bloating continues, then would recommend NG placement and NPO With near complete obstruction, patient will need diverting colostomy which will likely be arranged for Monday Suspicious for Stage 4 Colon/Rectal adenocarcinoma--will need to be evaluated by Oncology soon. NPO after midnight tonight Consult Ostomy nurse for marking and education KUB ordered but hasn't be taken yet (2) Large bowel obstruction: Code(s): K56.609 - Unspecified intestinal obstruction, unspecified as to partial versus complete obstruction Status: Acute (3) Hematochezia: Code(s): K92.1 - Melena Status: Acute (4) Acute hypokalemia: Code(s): E87.6 - Hypokalemia Status: Acute Assessment and Plan: Replaced per hospitalist (5) Liver lesion: Code(s): K76.9 - Liver disease, unspecified Status: Acute (6) Abdominal pain: Code(s): R10.9 - Unspecified abdominal pain Status: Acute (7) Benign essential hypertension: Code(s): I10 - Essential (primary) hypertension Status: Chronic Subjective Subjective Date/Time Seen: 06/18/23 12:24 Interval history: Still just as bloated as yesterday. No nausea or vomiting last night or so far today. Having some diarrhea. Still experiencing generalized abdominal pain. Exam GI: Inspection: distended GI Palp: Yes Soft to palpation, Yes Tenderness to palpation present (GI) (mild generalized), No Guarding due to palpation present (GI) and No Rebound tenderness present Percussion: Yes tympanic to percussion Objective Data Vital Signs Vital Signs: Vital Signs - 24 hr 06/17/23 14:00 06/17/23 16:00 06/17/23 22:00 Temperature 36.4 C 36.6 C Pulse Rate 81 98 91 Respiratory Rate 16 18 Blood Pressure 151/93 H 158/87 H Pulse Oximetry 97 98 Oxygen Delivery 06/17/23 20:00 06/17/23 20:00 06/18/23 00:00 Temperature Pulse Rate 74 71 Respiratory Rate Blood Pressure Pulse Oximetry Oxygen Delivery Room Air 06/18/23 04:00 06/18/23 06:00 06/18/23 08:12 Temperature 36.5 C Pulse Rate 98 79 75 Respiratory Rate 18 Blood Pressure 151/96 H 153/93 H Pulse Oximetry 97 97 Oxygen Delivery 06/18/23 08:00 Temperature Pulse Rate Respiratory Rate Blood Pressure Pulse Oximetry 97 Oxygen Delivery Room Air Intake/Output Intake/Output: Intake & Output 06/15/23 06/16/23 06/17/23 06/18/23 23:59 23:59 23:59 23:59 Intake Total 3370 4050 2586 940 Output Total 8 Balance 3370 4042 2586 940 Meds/Results Medications: Active Medications Generic Name Dose Route Start Last Admin Trade Name Freq PRN Reason Stop Dose Admin Acetaminophen 650 mg 06/15/23 08:36 Acetaminophen 325 Mg Tablet PO Q6H PRN Mild Pain (1-3) or Fever Hydrocodone Bitart/Acetaminophen 1 tab 06/15/23 08:36 06/18/23 04:41 Hydrocodone/Acetaminophen (*Crx) 5-325 Mg Tablet PO 1 tab Q6H PRN Administration Pain Rated 4-6 Hydrocodone Bitart/Acetaminophen 1 tab 06/18/23 10:35 06/18/23 12:03 Hydrocodone/Acetaminophen (*Crx) 10-325 Mg Tablet PO 1 tab Q6H PRN Administration Pain Rated 7-10 Amlodipine Besylate 5 mg 06/16/23 09:00 06/18/23 08:02 Amlodipine Besylate 5 Mg Tablet PO 5 mg DAILY JASON Administration Diphenoxylate HCl/Atropine 1 tablet 06/17/23 12:36 06/18/23 04:42 Diphenoxylate/Atropine (*Crx) 2.5 Mg Tablet PO 1 tablet PRN PRN Administration Diarrhea Hydralazine HCl 10 mg 06/16/23 07:44 Hydralazine Hcl 20 Mg/Ml Vial IV PUSH Q8H PRN Blood Pressure - High Piperacillin/Tazobactam/Dextrose 3.375 gm in 50 mls @ 100 mls/hr 06/15/23 12:00 0
[2023-06-18 20:37] LABS: Potassium 3.6 mmol/L (3.4-5.0)
[2023-06-19] VITALS (24 sets, daily range): BP systolic 115–172; BP diastolic 72–111; PULSE 89–145; RESP 12–20; TEMP 36.8–39.1; O2SAT 94–100
[2023-06-19] MEDS: HYDROcodone/acetaminophen (*CRX) 10-325 MG TABLET 1 TAB PO ×2 (00:18→05:40)
[2023-06-19] MEDS: DIPHENOXYLATE/ATROPINE (*CRX) 2.5 MG TABLET 1 TABLET PO (00:18)
[2023-06-19] MEDS: KCL 40 MEQ/0.9% SOD CHL 1,000 ML 100 ML IV CONT (00:19)
[2023-06-19] MEDS: PIPERACILLN/TAZ 3.375GM/NS50ML 3.375 GM/50 ML BAG IVPB ×3 (00:19→12:17)
[2023-06-19] MEDS: KCL 20 MEQ/SW 100 ML 100 ML 50 MEQ IVPB (00:20)
[2023-06-19] MEDS: MORPHINE SULFATE (*CRX) 4 MG/ML INJ IV PUSH ×3 (03:47→12:17)
[2023-06-19] MEDS: hydrALAZINE HCL 20 MG/ML VIAL 10 MG IV PUSH (06:12)
[2023-06-19] MEDS: KETOROLAC 30 MG/ML VIAL (*BKC) IV PUSH (06:34)
[2023-06-19 06:42] LABS: Hematocrit 32.3 % (42.0-52.0); Hemoglobin 10.5 g/dL (14.0-18.0); Mean Corpuscular HGB Conc 32.5 g/dl (32-36); Mean Corpuscular Hemoglobin 29.5 pg (26-34); Mean Corpuscular Volume 90.7 fl (80-100); Mean Platelet Volume 10.4 fl (7.4-10.4); Platelet Count Result 361 k/mm3 (150-375); Red Blood Count 3.56 M/mm3 (4.6-6.20); Red Cell Distribution Width 15.1 % (11.5-14.5)
[2023-06-19 06:53] LABS: Alanine Aminotransferase 28 U/L (6-50); Albumin Level 3.4 g/dL (3.5-5.1); Alkaline Phosphatase 289 U/L (38-126); Anion Gap 8 mmol/L (8-16); Aspartate Amino Transferase 55 U/L (17-59); Bilirubin,Total 0.8 mg/dL (0.2-1.3); Blood Urea Nitrogen 7 mg/dL (9-20); Carbon Dioxide 26 mmol/L (22-30); Chloride 105 mmol/L (98-107); Estimated CRCL calculation 90 ml/min; Estimated Glomerular Filt Rate > 60; Glucose 103 mg/dL (65-110); Sodium 139 mmol/L (137-145)
[2023-06-19] MEDS: POTASSIUM CHLORIDE INJ 40 MEQ in SODIUM CHLORIDE 0.9% IV 500 ML 130 MEQ IVPB ×2 (09:12→22:35)
[2023-06-19] MEDS: amLODIPine BESYLATE 5 MG TABLET PO (09:16)
[2023-06-19] MEDS: PANTOPRAZOLE SODIUM IV 40 MG VIAL IV PUSH (09:16)
--- NOTE | 2023-06-19 10:24 | PCWOUND ---
WOCN NOTE Received orders to paula patients abdomen for suggested colostomy placement site, had patient lay flat and bend to determine best site. shaved hair from site, placed black marker X on site, covered with tegaderm dressing.
--- NOTE | 2023-06-19 10:57 | PM.IMPN ---
Progress Note: A&P Assessment and Plan (1) Colonic mass: Code(s): K63.89 - Other specified diseases of intestine Status: Acute Assessment and Plan: Patient presented with abdominal pain, diarrhea and hematochezia. CT abdomen pelvis revealing extensive wall thickening of the sigmoid colon suspicious for colonic malignancy versus possibility of infectious / inflammatory colitis. with possible metastases in the liver, bladder and lymph nodes. GI and General surgery consulted. Colonoscopy revealing rectal mass Analgesics and antiemetics p.r.n. CEA elevated at 46.5 (2) Large bowel obstruction: Code(s): K56.609 - Unspecified intestinal obstruction, unspecified as to partial versus complete obstruction Status: Acute Assessment and Plan: Likely due to colonic mass. GI and General surgery consulted. Diverting colostomy planned for today (3) Hematochezia: Code(s): K92.1 - Melena Status: Acute Assessment and Plan: patient has experienced hematochezia for the past couple weeks. Three point drop in H&H since March of 2023. Monitor H&H Transfuse if hemoglobin less than 7 (4) Acute hypokalemia: Code(s): E87.6 - Hypokalemia Status: Acute Assessment and Plan: Patient presented with a potassium of 2.6. Patient received 20 mEq IV in the ED. Repeat potassium was still 2.6. Patient was prescribed 40 mEq IV potassium to be given and then started on potassium chloride/sodium chloride 06/16 potassium 2.4, K rider added to fluids 06/18 Patient's potassium remains between 2.5-2.7. Continue p.o. and IV potassium scheduled. Monitor BMP and replace as needed. (5) Liver lesion: Code(s): K76.9 - Liver disease, unspecified Status: Acute Assessment and Plan: Liver hypodensity seen on CT scan suspicious for metastases. Total bili, AST and ALT all within normal limits. Alk-phos elevated at 224 But trending down (6) Abdominal pain: Code(s): R10.9 - Unspecified abdominal pain Status: Acute Assessment and Plan: Likely due to colonic mass/obstruction. Analgesics and anti emetics p.r.n. (7) Benign essential hypertension: Code(s): I10 - Essential (primary) hypertension Status: Chronic Assessment and Plan: Continue home amlodipine and lisinopril. Subjective Date/time seen: 06/19/23 10:57 Interval history: Patient continues to have abdominal pain, bloating and diarrhea. Diarrhea has slowed down since he was 1st admitted. He is getting diverting colostomy today. Hopefully this will ease some of patient's abdominal pain and bloating. He is not having any nausea or vomiting. Exam Narrative: GENERAL: Comfortable, no acute distress HENMT: moist mucous membranes EYES: EOM intact b/l NECK: no lymphadenopathy RESPIRATORY: clear to auscultation CARDIO: RRR GI: Distended, diffuse tenderness palpation, hypoactive bowel sounds SKIN: no rashes EXTREMITIES: no edema, redness or tenderness Objective Data Vital Signs Vital Signs: Vital Signs - 24 hr 06/18/23 12:00 06/18/23 16:00 06/18/23 14:00 Temperature 98.3 F Pulse Rate 95 89 96 Respiratory Rate 14 Blood Pressure 154/101 H Pulse Oximetry 98 Oxygen Delivery 06/18/23 22:00 06/18/23 20:00 06/18/23 20:00 Temperature 97.5 F L Pulse Rate 85 85 Respiratory Rate 18 Blood Pressure 166/99 H Pulse Oximetry 98 Oxygen Delivery Room Air 06/19/23 00:00 06/19/23 04:00 06/19/23 06:20 Temperature 98.2 F Pulse Rate 93 89 90 Respiratory Rate 16 Blood Pressure 172/109 H Pulse Oximetry 98 Oxygen Delivery Room Air 06/19/23 06:00 06/19/23 09:14 Temperature 98.2 F Pulse Rate 92 96 Respiratory Rate 12 Blood Pressure 172/109 H 160/96 H Pulse Oximetry 98 Oxygen Delivery Intake/Output Intake/Output: Intake & Output 06/16/23 06/17/2306/02
--- NOTE | 2023-06-19 11:40 | PCNFU ---
Nutrition Follow-Up Complete: Severe protein calorie malnutrition related to chronic colon mass as evidenced by weight loss 15%/4 months, intake <75% needs >1 month Goal:Advance diet Pt current nutrition is NPO for colostomy placement. Nutrition recommendation: resume diet when appropriate Last recorded weight is 78.63 kg. Bowel Motility: +BM 06/19 Labs Reviewed: Hgb:10.5, HCT:32.3, Alb:3.4, K:3.0 Meds Noted: zofran, protonix, KCL Skin: no skin issues noted Additional Notes: Pt NPO today for a procedure. Was on clear liquids with minimal intake. Recommend to advance diet as appropriate and add supplements. Monitoring for diet advancement, plan of care, labs, weights, intakes Follow up in 3 days
[2023-06-19 13:19] LABS: Potassium 3.2 mmol/L (3.4-5.0)
--- NOTE | 2023-06-19 13:29 | WPDHPUPDATE1 ---
History and Physical Update Update Date/Time: 06/19/23 13:29 History and Physical has been reviewed, including an updated exam of the patient. There are NO changes in the patient's condition. Risks, benefits, and alternatives have been discussed and questions answered. Patient agrees to proceed with procedure. Plan is to proceed with a diverting loop colostomy preferably in the sigmoid or descending left colon but may have to be placed in the mid transverse colon. Laparoscopic approach will be attempted but conversion to open procedure is certainly a possibility. This was discussed in detail with the patient. He has been marked by the ostomy nurses.
--- NOTE | 2023-06-19 14:11 | PC.NURSE ---
Patient to preop via bed.
[2023-06-19] MEDS: LACTATED RINGERS 1,000 ML 30 ML IV CONT ×3 (14:30→18:21)
--- NOTE | 2023-06-19 14:51 | WPDANESEPPF ---
Anes - Initial Pre Proc Eval Procedure: Operation Date: 06/16/23 13:30 Proposed Procedures p Colonoscopy - Selvin Goodwin MD Operation Date: 06/19/23 15:00 Proposed Procedures p Laparoscopic, Possible Open Diverting Colostomy - Mason Lara MD Date/Time: 06/19/23 14:51 Surgeon: Yuri Caputo MD Pre Op Diagnosis: colitis,hypokalemia,abdominal pain Patient Data Age: 58 Gender: M Height: 1.7 m Weight: 78.63 kg Last Vital Signs Temp 36.8 C 06/19/23 06:20 Pulse 96 06/19/23 09:14 Resp 16 06/19/23 06:20 BP 160/96 H 06/19/23 09:14 Pulse Ox 98 06/19/23 06:20 O2 Del Method Room Air 06/19/23 08:00 Allergies Allergy/AdvReac Type Severity Reaction Status Date / Time No Known Allergies Allergy Verified 06/16/23 12:09 Home Medications Medication Instructions Recorded Confirmed Type pravastatin 40 mg tablet 40 mg PO QHS 01/31/23 06/15/23 History amlodipine 5 mg tablet 5 mg PO DAILY #90 tabs 03/06/23 06/15/23 Rx lisinopril 40 mg tablet 40 mg PO DAILY #90 tabs 03/06/23 06/15/23 Rx Laboratory Tests 06/18/23 06/19/23 06/19/23 19:58 06:17 12:55 WBC 7.0 K/mm3 (4.5-10.0) RBC 3.56 L M/mm3 (4.6-6.20) Hgb 10.5 L g/dL (14.0-18.0) Hct 32.3 L % (42.0-52.0) MCV 90.7 fl (80-100) MCH 29.5 pg (26-34) MCHC 32.5 g/dl (32-36) RDW 15.1 H % (11.5-14.5) Plt Count 361 k/mm3 (150-375) MPV 10.4 fl (7.4-10.4) Sodium 139 mmol/L (137-145) Potassium 3.6 mmol/L 3.0 L mmol/L 3.2 L mmol/L (3.4-5.0) (3.4-5.0) (3.4-5.0) Chloride 105 mmol/L (98-107) Carbon Dioxide 26 mmol/L (22-30) Anion Gap 8 mmol/L (8-16) BUN 7 L mg/dL (9-20) Creatinine 0.70 mg/dL (0.7-1.3) Estim Creat Clear Calc 90 ml/min Estimated GFR > 60 (59 - ) Glucose 103 mg/dL (65-110) Calcium 8.0 L mg/dL (8.4-10.2) Total Bilirubin 0.8 mg/dL (0.2-1.3) AST 55 U/L (17-59) ALT 28 U/L (6-50) Alkaline Phosphatase 289 H U/L (38-126) Total Protein 7.0 g/dL (6.3-8.2) Albumin 3.4 L g/dL (3.5-5.1) Patient hx anesthesia problems: none Family hx anesthesia problems: none Results Review: All pre-operative results and documents have been reviewed as part of the pre-operative evaluation. [facility] Past Medical History Medical History Benign essential hypertension BPH associated with nocturia Hyperlipidemia, unspecified Type 2 diabetes mellitus without complication, without long-term current use of insulin Surgical History Surgical History No history of previous surgery Family History Family History Mother Hypertension Father Family history of kidney disease Family history of coronary artery disease Other Cerebrovascular accident Social History Social History Social History: Patient is . 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 Lives at home with and son. Has a cat. Does not have health insurance right now and this weighs on him and his family daily. Smoking status: Never smoker Alcohol intake: never Substance use: never Substance use type: does not use Lack of Transportation: No Lack of Food: Never True Current Housing: I Have Housing Concerned About Future Housing: No Difficulty Paying Gas/Electric Bills: No Difficulty Paying for Meds: No Currently Unemployed: No Education: Associate Degree Difficulty w/ Childcare or Family Care: No Living arrangements: with family Occupation/Education: o
[2023-06-19] MEDS: LIDO 1%/EPINEPHRINE 1:100,000 20 ML VIAL INFILTRATE (16:22)
[2023-06-19] MEDS: MEPERIDINE HCL INJ (*CRX) 50 MG/ML AMPUL 25 MG IV PUSH (18:30)
[2023-06-19] MEDS: METOPROLOL TARTRATE INJ 5 MG/5 ML VIAL IV PUSH (18:32)
[2023-06-19] MEDS: fentaNYL CITRATE INJ (*CRX) 100 MCG/2 ML VIAL 25 MCG IV PUSH ×6 (19:13→20:14)
--- NOTE | 2023-06-19 19:25 | P.OPB_ITS ---
Procedure Note - Brief Procedure Note - Brief Date of procedure: 06/19/23 Stage IV metastatic obstructing rectal cancer Post-op diagnosis: Same Procedure performed: Attempted laparoscopic loop colostomy placement with conversion to open mid transverse loop colostomy placement. Surgeon: Mason Lara MD Brimming Machine Operator: Jaime OHARA, Justine OHARA Anesthesia: GETA Findings: Large grapefruit size pelvic tumor with infiltration into the rectal mesentery and pelvic sidewalls. Fixed sigmoid colon. Markedly distended colon extending from the rectum all the way to the ileocecal valve. Implants: None Estimated blood loss (mL): 50 Urine output (mL): 250 Drains: No Packing: No Pathology: None sent Complications: No immediate complications Condition: Stable Disposition: PACU
[2023-06-19] MEDS: MEROPENEM 1 GM/NS 100 ML 1 GM/100 ML BAG IVPB (20:05)
[2023-06-19] MEDS: IBUPROFEN IV 800 MG/200 ML 800 MG/200 ML BAG 400 MG IVPB (22:35)
[2023-06-19] MEDS: metroNIDAZOLE 500 MG/ISO 100ML 500 MG/100 ML BAG 100 MG IVPB (22:36)
[2023-06-20] VITALS (8 sets, daily range): BP systolic 99–125; BP diastolic 64–81; PULSE 98–113; RESP 16–20; TEMP 36.5–37.3; O2SAT 97–100
[2023-06-20] MEDS: DEXTROSE 5%/0.9% SOD CHL 1,000 ML 130 ML IV CONT ×3 (02:46→23:09)
[2023-06-20] MEDS: MEROPENEM 1 GM/NS 100 ML 1 GM/100 ML BAG IVPB ×3 (03:40→21:00)
[2023-06-20] MEDS: HYDROmorphone HCL INJ (*CRX) 1 MG/ML SYR IV PUSH ×4 (04:40→20:35)
[2023-06-20] MEDS: IBUPROFEN IV 800 MG/200 ML 800 MG/200 ML BAG 400 MG IVPB ×3 (05:24→21:36)
[2023-06-20] MEDS: metroNIDAZOLE 500 MG/ISO 100ML 500 MG/100 ML BAG 100 MG IVPB ×3 (05:25→21:37)
[2023-06-20 06:38] LABS: Basophils Percent Auto 0.6 % (0.2-1.2); Eosinophils Percent Auto 0.2 % (0-4.4); Hemoglobin 11.6 g/dL (14.0-18.0); Immature Granulocyte Absolute 0.01 K/mm3 (0.00-0.031); Immature Granulocyte Percent A 0.2 % (0-0.5); Lymphocytes Absolute Auto 0.35 K/mm3 (0.9-3.2); Lymphocytes Percent Auto 5.5 % (18.3-44.2); Mean Corpuscular HGB Conc 32.2 g/dl (32-36); Mean Corpuscular Hemoglobin 29.3 pg (26-34); Mean Corpuscular Volume 90.9 fl (80-100); Mean Platelet Volume 10.4 fl (7.4-10.4); Monocytes Absolute Auto 0.5 K/mm3 (0.1-0.6); Monocytes Percent Auto 8.1 % (2.6-8.5); Neutrophils Absolute Auto 5.4 K/mm3 (1.3-6.7); Neutrophils Percent Auto 85.4 % (45.5-73.1); Platelet Count Result 396 k/mm3 (150-375); Red Blood Count 3.96 M/mm3 (4.6-6.20); Red Cell Distribution Width 15.1 % (11.5-14.5); White Blood Count 6.3 K/mm3 (4.5-10.0)
[2023-06-20 06:49] LABS: Alanine Aminotransferase 20 U/L (6-50); Albumin Level 2.4 g/dL (3.5-5.1); Alkaline Phosphatase 165 U/L (38-126); Anion Gap 7 mmol/L (8-16); Aspartate Amino Transferase 35 U/L (17-59); Bilirubin,Total 0.9 mg/dL (0.2-1.3); Blood Urea Nitrogen 14 mg/dL (9-20); Calcium 7.3 mg/dL (8.4-10.2); Carbon Dioxide 22 mmol/L (22-30); Chloride 110 mmol/L (98-107); Estimated CRCL calculation 47 ml/min; Estimated Glomerular Filt Rate 52; Glucose 109 mg/dL (65-110); Potassium 3.2 mmol/L (3.4-5.0); Sodium 139 mmol/L (137-145)
--- NOTE | 2023-06-20 07:17 | SUR.OPER ---
Procedure began laparoscopically. Surgeon made conscious decision to make this an open procedure.
--- NOTE | 2023-06-20 08:03 | WPDANESPN ---
Anes - Prog Note Post-Op Date/Time: 06/20/23 08:03 Cardiovascular status: normal Respiratory status: other (3L O2) Airway patency: baseline Mental status: baseline Post-Op hydration status: normal Vital Signs: Last Vital Signs Temp 36.5 C 06/20/23 04:00 Pulse 105 H 06/20/23 04:00 Resp 16 06/20/23 04:00 BP 125/81 06/20/23 04:00 Pulse Ox 98 06/20/23 04:00 O2 Del Method Nasal Cannula 06/19/23 21:05 O2 Flow Rate 2 06/19/23 21:05 Pain Score (VAS): 12/09 I/O: Intake & Output 06/19/23 06/20/23 06/20/23 23:59 07:59 15:59 Intake Total 1000 1800 Output Total 795 Balance 205 1800 Laboratory Tests 06/20/23 06:02 06/20/23 06:02 06/19/23 06/20/23 12:55 06:02 WBC 6.3 RBC 3.96 L Hgb 11.6 L Hct 36.0 L MCV 90.9 MCH 29.3 MCHC 32.2 RDW 15.1 H Plt Count 396 H MPV 10.4 Immature Gran % (Auto) 0.2 Neut % (Auto) 85.4 H Lymph % (Auto) 5.5 L [place] % (Auto) 8.1 Eos % (Auto) 0.2 Baso % (Auto) 0.6 Lymph # (Auto) 0.35 L [place] # (Auto) 0.5 Eos # (Auto) 0.0 Baso # (Auto) 0.0 Abs Immat Gran (auto) 0.01 Absolute Neuts (auto) 5.4 Absolute Nucleated RBC 0.0 Nucleated RBC % 0.0 Sodium 139 Potassium 3.2 L 3.2 L Chloride 110 H Carbon Dioxide 22 Anion Gap 7 L BUN 14 D Creatinine 1.40 H Estim Creat Clear Calc 47 Estimated GFR 52 L Glucose 109 Calcium 7.3 L Total Bilirubin 0.9 AST 35 ALT 20 Alkaline Phosphatase 165 H Total Protein 5.0 L Albumin 2.4 L Post-procedural complaints: none Patient Feedback: Patient satisfied with anesthetic care.
[2023-06-20] MEDS: ENOXAPARIN 40 MG/0.4 ML SYRINGE SUB-Q (09:17)
[2023-06-20] MEDS: PANTOPRAZOLE SODIUM IV 40 MG VIAL IV PUSH (09:18)
--- NOTE | 2023-06-20 13:44 | PM.IMPN ---
Progress Note: A&P Assessment and Plan (1) Colonic mass: Code(s): K63.89 - Other specified diseases of intestine Status: Acute Assessment and Plan: Patient presented with abdominal pain, diarrhea and hematochezia. CT abdomen pelvis revealing extensive wall thickening of the sigmoid colon suspicious for colonic malignancy versus possibility of infectious / inflammatory colitis. with possible metastases in the liver, bladder and lymph nodes. GI and General surgery consulted. Colonoscopy revealing rectal mass Analgesics and antiemetics p.r.n. CEA elevated at 46.5 Diverting colostomy postop day 1 Wound care consulted (2) Large bowel obstruction: Code(s): K56.609 - Unspecified intestinal obstruction, unspecified as to partial versus complete obstruction Status: Acute Assessment and Plan: Likely due to colonic mass. GI and General surgery consulted. Diverting colostomy postop day 1 (3) Hematochezia: Code(s): K92.1 - Melena Status: Acute Assessment and Plan: patient has experienced hematochezia for the past couple weeks. Three point drop in H&H since March of 2023. Monitor H&H Transfuse if hemoglobin less than 7 (4) Acute hypokalemia: Code(s): E87.6 - Hypokalemia Status: Acute Assessment and Plan: Patient presented with a potassium of 2.6. Patient received 20 mEq IV in the ED. Repeat potassium was still 2.6. Patient was prescribed 40 mEq IV potassium to be given and then started on potassium chloride/sodium chloride 06/16 potassium 2.4, K rider added to fluids 06/18 Patient's potassium remains between 2.5-2.7. Continue p.o. and IV potassium scheduled. 06/20 potassium slowly improving. Potassium today 3.2. Patient's creatinine 1.4. Will hold IV potassium for now and continue with p.o. Monitor BMP and replace as needed. (5) Liver lesion: Code(s): K76.9 - Liver disease, unspecified Status: Acute Assessment and Plan: Liver hypodensity seen on CT scan suspicious for metastases. Total bili, AST and ALT all within normal limits. Alk-phos elevated at 224 But trending down (6) Abdominal pain: Code(s): R10.9 - Unspecified abdominal pain Status: Acute Assessment and Plan: Likely due to colonic mass/obstruction. Analgesics and anti emetics p.r.n. (7) Benign essential hypertension: Code(s): I10 - Essential (primary) hypertension Status: Chronic Assessment and Plan: Continue home amlodipine and lisinopril. Subjective Date/time seen: 06/20/23 13:44 Interval history: Patient doing better today. His pain is more controlled. He is postop day 1 diverting colostomy. Awaiting further recommendations from surgery as far as diet goes. Wound care working with patient in educating about ostomy cleaning and supplies. Exam Narrative: GENERAL: Comfortable, no acute distress HENMT: moist mucous membranes EYES: EOM intact b/l NECK: no lymphadenopathy RESPIRATORY: clear to auscultation CARDIO: RRR GI: diffuse tenderness palpation, hypoactive bowel sounds, Distention improved SKIN: no rashes EXTREMITIES: no edema, redness or tenderness Objective Data Vital Signs Vital Signs: Vital Signs - 24 hr 06/19/23 14:10 06/19/23 18:32 06/19/23 18:21 Temperature 99.5 F 98.7 F Pulse Rate 102 H 145 H 129 H Respiratory Rate 18 18 Blood Pressure 157/91 H 153/111 H Pulse Oximetry 98 100 Oxygen Delivery Room Air Simple Face Mask Oxygen Flow Rate 8 06/19/23 18:35 06/19/23 18:50 06/19/23 19:05 Temperature Pulse Rate 120 H 110 H 116 H Respiratory Rate 16 16 15 Blood Pressure 147/105 H 144/101 H 134/100 H Pulse Oximetry 100 100 94 Oxygen Delivery Simple Face Mask Simple Face Mask Room Air Oxygen Flow Rate 8 8 06/19/23 19:20 06/19/23 19:50 06/19/23 20:35 Temperature Pulse Rate 112 H 116 H 119 H Respiratory
--- NOTE | 2023-06-20 15:11 | PM.PNGS ---
Progress Note: A&P Assessment and Plan (1) Large bowel obstruction: Code(s): K56.609 - Unspecified intestinal obstruction, unspecified as to partial versus complete obstruction Status: Acute Assessment and Plan: Secondary to large obstructing rectal mass. S/p attempted laparoscopic loop colostomy placement with conversion to open mid transverse loop colostomy yesterday. Ostomy functioning today. Will allow some ice chips and a few sips of clear liquids tonight, no carbonated beverages. Continue IV antibiotics, switched to IV Meropenem with IV Flagyl due to some contained spillage of stool during surgery (2) Rectal mass: Code(s): K62.89 - Other specified diseases of anus and rectum Status: Acute Assessment and Plan: Biopsies from colonoscopy showed ulcerated invasive poorly differentiated adenocarcinoma. Oncology has been consulted and will be able to follow up with patient as an outpatient. He will have to hold off on any chemotherapy until he is healed and cleared from surgery. (3) Hematochezia: Code(s): K92.1 - Melena Status: Acute (4) Acute hypokalemia: Code(s): E87.6 - Hypokalemia Status: Acute Assessment and Plan: Potassium still 3.2 today, replaced with IV KCL 40 meq, monitor labs. (5) Liver lesion: Code(s): K76.9 - Liver disease, unspecified Status: Acute (6) Benign essential hypertension: Code(s): I10 - Essential (primary) hypertension Status: Chronic Plan I have discussed the patient's case and plan of care with Dr. Lara. Subjective Subjective Date/Time Seen: 06/20/23 15:11 Patient reports: still having pain and afebrile Interval history: Patient reporting abdominal pain at the incisions and right lower quadrant. He reports having a large amount of gas out of the bag today and liquid stool that has been emptied twice. Denies any nausea or vomiting. No other complaints at this time. Review of Systems Cardiovascular: Cardiovascular: Reports no additional cardiovascular complaints, Reports chest pain (Short episode of midsternal chest pain earlier today,resolved spontaneously) and Denies leg edema Respiratory: Respiratory: Reports no additional respiratory complaints, Denies cough and Denies dyspnea Gastrointestinal: Gastrointestinal: Reports as per HPI and Reports no additional gastrointestinal complaints Exam Const: General: no acute distress and awake Nutritional Appearance: average body habitus Orientation/consciousness: patient oriented x3 Resp: Effort & Inspection: normal respiratory effort Auscultation: clear to auscultation bilaterally Other: On 3 L nasal cannula Cardio: Rate: regular rate Rhythm: regular rhythm (Appears to be in sinus rhythm on telemetry) GI: Inspection: distended and incision (Dressing with some shadow bloody drainage) GI Palp: Yes Soft to palpation, Yes Tenderness to palpation present (GI) (Tender near incisions as expected, and tenderness across his right abdomen), No Guarding due to palpation present (GI) and No Rebound tenderness present Percussion: Yes normal to percussion Auscultation: normal bowel sounds Other: Midline upper colostomy with liquid brown stool and gas in the bag, stoma pink with red rubber catheter in place Objective Data Vital Signs Vital Signs: Vital Signs - 24 hr 06/19/23 18:32 06/19/23 18:21 06/19/23 18:35 Temperature 98.7 F Pulse Rate 145 H 129 H 120 H Respiratory Rate 18 16 Blood Pressure 153/111 H 147/105 H Pulse Oximetry 100 100 Oxygen Delivery Simple Face Mask Simple Face Mask Oxygen Flow Rate 8 8 06/19/23 18:50 06/19/23 19:05 06/19/23 19:20 Temperature Pulse Rate 110 H 116 H 112 H Respiratory Rate 16 15 16 Blood Pressure 144/101 H 134/100 H 135/78 Pulse Oximetry 100 94 96 Oxygen Delivery Simple Face Mask Room Air Nasal Cannula Oxygen Flow Rate 8 2 06/19/23 19:50 06/19/23 20:35 06/19/23 21:05 Temp
[2023-06-20] MEDS: POTASSIUM CHLORIDE INJ 40 MEQ in SODIUM CHLORIDE 0.9% IV 500 ML 130 MEQ IVPB (16:43)
--- NOTE | 2023-06-20 18:56 | W.PM.PROC2 ---
Procedure Note - Detailed Date of Procedure 06/19/23 Pre-op Diagnosis Stage IV metastatic rectal carcinoma with complete bowel obstruction Post-op Diagnosis Same Procedure Performed Attempted laparoscopic loop colostomy placement with conversion to open transverse loop colostomy placement. Surgeon Mason Lara MD Bread Supervisor Jaime Low PATIENT REGISTRATION CLERK Anesthesia General Indications Patient is a 58-year-old gentleman who unfortunately has developed a obstructing rectal cancer recently diagnosed on colonoscopy with biopsy. He also has evidence of cystitis within his abdomen into his liver. He presents now for placement of a diverting loop colostomy due to complete distal bowel obstruction due to the rectal cancer. Findings The patient had severely dilated colon extending from the sigmoid colon all the way back to the low cecal valve. The cecum was at least 10 to 12 cm in diameter. The pelvis a large tumor within the pelvis which was infiltrating into the mesentery and the pelvic sidewall on the left. There was fixation of the sigmoid colon. Description of Procedure After informed consent was obtained patient brought to the operating room was placed supine position and general endotracheal anesthesia was administered. A Tom catheter was placed decompress the bladder. A nasogastric tube was placed as well. The abdomen was then prepped draped usual sterile fashion. A time-out was then performed correctly identifying the patient as well as the procedure to be performed. He was already on scheduled IV antibiotics. I then attempted to try to see if I could place the colostomy in a laparoscopic fashion. A 5mm Optiview port was used and the abdomen left upper quadrant with a direct optical insertion. I was able to successfully get the port into the abdomen and insufflate as much as I could but due to the severe dilation of the colon I was unable to get a good view of the pelvis. It seemed that the whole colon was so dilated that any laparoscopic ambulation of the colon would be very difficult and possibly perforated colon. At this point I then converted the procedure to an open surgery. The laparoscopic ports were then removed from the abdomen and laparoscopic instruments were then put away. I then made a midline incision starting at the mid epigastric region abdomen extended almost down to the umbilicus. I identified the mid transverse colon which was very dilated. Was viable. I was able to divide the omentum with the LigaSure energy device and then make a defect in the mesentery to the mid transverse colon utilizing electrocautery. A 16 Romansh red rubber catheter was then placed through the defect to include levelock the mid transverse colon. I then proceeded to close the fascia utilizing a running looped PDS. The fascia was closed until the transverse colon was brought up through the remaining opening in the fascia. At this point I tried to place a lap sponges around the fascial edges expecting stool to leak out of the colon after incising with electrocautery. I then made a longitudinal defect in the midportion of the anterior wall the colon utilizing electrocautery. Once I did this copious amounts of liquid stool drained from the abdomen so fast that it out pace the suction device. There was some stool that did leak into the abdomen. I aspirated as much of stools I could into a quit spontaneously coming out of the colon. By this point the colon had markedly decompressed. Placed a 2-0 Vicryl suture to close the colotomy temporarily. I then proceeded to open back up the fascia because I had now irrigated out the abdomen since there was some spillage of stool within the epigastric portion of the abdomen. I then removed the running 1. PDS fascial sutures and then irrigated the abdomen with about 7L of warm saline solution. At the end of this irrigation and the aspirated fluid appeared to be without infected material within it and relatively clear.
--- NOTE | 2023-06-20 19:21 | PDONCCN ---
HPI - Date of Consult Date/Time: 06/20/23 19:21 Requesting Physician: Yuri Caputo MD Primary Care Provider: Fox Long, DO - Consult Narrative Reason for consult: Metastatic rectal cancer Narrative: Valerio Recinos is a 58 year old male with history of hypertension type 2 diabetes and hyperlipidemia has been dealing with intermittent diarrhea for last 6 months duration. He has lost almost 40 lb weight last 2 months duration. He was having some abdominal discomfort since March of 2023. He came into the ER and the CT scan was performed that showed extensive thickening of the sigmoid colon suspicious for malignancy along with hypodensity near the right hepatic lobe suspicious for metastatic disease with retroperitoneal lymphadenopathy and perirectal lymphadenopathy. Due to obstructive nature of the rectal cancer patient underwent laparoscopic loop colostomy with conversion to open and transverse loop colostomy placement. Labs showed elevated CEA of 46.5. He is recovering from the surgery. He seems to be card tired and slightly depressed. Review of Systems - Review of Systems All systems reviewed & are unremarkable except as noted in HPI and bel - Neurologic Reports system reviewed and no additional complaints, except as documented, Denies abnormal gait, Denies headache(s), Denies focal weakness, Denies numbness, Denies tingling PMFSH Medical History: Medical History (Last Reviewed 06/19/23 @ 14:51 by Vernon Cisneros MD) Benign essential hypertension BPH associated with nocturia Hyperlipidemia, unspecified Type 2 diabetes mellitus without complication, without long-term current use of insulin Surgical History: Surgical History (Last Reviewed 06/19/23 @ 14:51 by Vernon Cisneros MD) No history of previous surgery Family History: Family History (Last Reviewed 06/19/23 @ 14:51 by Vernon Cisneros MD) Mother Hypertension Father Family history of kidney disease Family history of coronary artery disease Other Cerebrovascular accident - Social History Social History: Social History (Last Reviewed 06/19/23 @ 14:51 by Vernon Cisneros MD) Gender Identity: Gender identity (if verbalized by the patient): Male Sexual Orientation: Sexual Orientation (if Verbalized by the Patient): Straight or Heterosexual Alcohol Use: Alcohol intake: never Substance Use: Substance use: never Substance use type: does not use Others: Spiritual care concerns: No Living Arrangements: Living arrangements: with family Oppucation/Education: Occupation/Education: occupation Smoking Status: Smoking status: Never smoker Social Determinants of Health: Has the Lack of Transportation Kept You From Medical Appointments or From Getting Medications?: No Within the Past 12 Months, Were You Worried Whether Your Food Would Run Out Before You Got Money to Buy More?: Never True What is Your Housing Situation Today?: I Have Housing Are You Worried That in the Next 2 Months, You May Not Have Your Own Housing to Live In?: No Do You Have Trouble Paying Your Heating Or Electricity Bill?: No Do You Have Trouble Paying For Medicines?: No Are You Currently Unemployed and Looking for Work?: No Highest Level of Education Completed: Associate Degree Do You Have Trouble With Childcare or the Care of a Family Member?: No Exam - Vital Signs Vital Signs - 24 hr 06/19/23 19:50 06/19/23 20:35 06/19/23 21:05 Temperature Pulse Rate 116 H 119 H 114 H Respiratory Rate 16 18 17 Blood Pressure 127/72 124/83 133/84 Pulse Oximetry 96 96 96 Oxygen Delivery Nasal Cannula Nasal Cannula Nasal Cannula Oxygen Flow Rate 2 2 2 06/19/23 20:50 06/19/23 19:35 06/19/23 20:05 Temperature Pulse Rate 116 H 115 H 113 H Respiratory Rate 17 16 16 Blood Pressure 126/92 H 125/72 115/85 Pulse Oximetry 97 97 96 Oxygen Delivery Nasal
[2023-06-20] MEDS: ZOLPIDEM TARTRATE (*CRX) 5 MG TABLET PO (23:15)
[2023-06-21] VITALS (9 sets, daily range): BP systolic 111–140; BP diastolic 78–82; PULSE 99–110; RESP 18; TEMP 36.5–37.1; O2SAT 95–98
[2023-06-21] MEDS: MEROPENEM 1 GM/NS 100 ML 1 GM/100 ML BAG IVPB ×3 (05:07→22:08)
[2023-06-21] MEDS: metroNIDAZOLE 500 MG/ISO 100ML 500 MG/100 ML BAG 100 MG IVPB ×3 (05:08→22:09)
[2023-06-21] MEDS: IBUPROFEN IV 800 MG/200 ML 800 MG/200 ML BAG 400 MG IVPB ×3 (05:09→22:09)
[2023-06-21] MEDS: DEXTROSE 5%/0.9% SOD CHL 1,000 ML 130 ML IV CONT (05:16)
[2023-06-21 06:34] LABS: Hematocrit 31.9 % (42.0-52.0); Hemoglobin 10.1 g/dL (14.0-18.0); Mean Corpuscular HGB Conc 31.7 g/dl (32-36); Mean Corpuscular Hemoglobin 29.2 pg (26-34); Mean Corpuscular Volume 92.2 fl (80-100); Mean Platelet Volume 10.3 fl (7.4-10.4); Platelet Count Result 394 k/mm3 (150-375); Red Blood Count 3.46 M/mm3 (4.6-6.20); Red Cell Distribution Width 15.7 % (11.5-14.5); White Blood Count 15.4 K/mm3 (4.5-10.0)
[2023-06-21 06:54] LABS: Alanine Aminotransferase 20 U/L (6-50); Albumin Level 2.5 g/dL (3.5-5.1); Alkaline Phosphatase 125 U/L (38-126); Anion Gap 6 mmol/L (8-16); Aspartate Amino Transferase 37 U/L (17-59); Bilirubin,Total 0.4 mg/dL (0.2-1.3); Blood Urea Nitrogen 26 mg/dL (9-20); Calcium 7.6 mg/dL (8.4-10.2); Carbon Dioxide 23 mmol/L (22-30); Chloride 110 mmol/L (98-107); Estimated CRCL calculation 39 ml/min; Estimated Glomerular Filt Rate 41; Glucose 101 mg/dL (65-110); Potassium 3.4 mmol/L (3.4-5.0); Sodium 139 mmol/L (137-145)
[2023-06-21] MEDS: PANTOPRAZOLE SODIUM IV 40 MG VIAL IV PUSH (08:36)
[2023-06-21] MEDS: ENOXAPARIN 40 MG/0.4 ML SYRINGE SUB-Q (08:36)
--- NOTE | 2023-06-21 09:50 | PM.PNGS ---
Progress Note: A&P Assessment and Plan (1) Large bowel obstruction: Code(s): K56.609 - Unspecified intestinal obstruction, unspecified as to partial versus complete obstruction Status: Acute Assessment and Plan: Secondary to large obstructing rectal mass. S/p attempted laparoscopic loop colostomy placement with conversion to open mid transverse loop colostomy 06/19. Ostomy functioning well with more liquid stool and gas today. Will start clear liquids today Continue IV meropenem and metronidazole (2) Rectal mass: Code(s): K62.89 - Other specified diseases of anus and rectum Status: Acute Assessment and Plan: Biopsies from colonoscopy showed ulcerated invasive poorly differentiated adenocarcinoma. Oncology has been consulted and will be able to follow up with patient as an outpatient. He will have to hold off on any chemotherapy until he is healed and cleared from surgery. (3) Acute kidney injury: Code(s): N17.9 - Acute kidney failure, unspecified Status: Acute Assessment and Plan: Creatinine trending up to 1.7 today, could be related to ostomy output. Renal ultrasound showed normal kidneys without hydronephrosis. Will give an IV fluid bolus. Change scheduled IV Ibuprofen to PRN Repeat labs tomorrow, may need to adjust meropenem frequency if no improvement (4) Acute hypokalemia: Code(s): E87.6 - Hypokalemia Status: Acute Assessment and Plan: Potassium 3.4, will replace with KCL again today, check magnesium, repeat labs tomorrow (5) Hematochezia: Code(s): K92.1 - Melena Status: Acute (6) Liver lesion: Code(s): K76.9 - Liver disease, unspecified Status: Acute (7) Benign essential hypertension: Code(s): I10 - Essential (primary) hypertension Status: Chronic Plan I have discussed the patient's case and plan of care with Dr. Lara. Subjective Subjective Date/Time Seen: 06/21/23 09:50 Post Op day: 2 (Attempted laparoscopic loop colostomy placement with conversion to open transverse loop colostomy placement) Patient reports: feels better, pain is less (still pain at incisions and right side of abdomen), tolerating liquids well, voiding w/o difficulty and afebrile Interval history: Patient feeling better today. Reports his abdominal pain has improved. He did have worsening abdominal pain overnight after going down for an ultrasound, but improved this morning. No nausea or vomiting. Reports his colostomy bag was empties 3 times overnight with gas and stool. There was 625 cc of stool documented from overnight. He is now on room air this morning and off oxygen. No shortness of breath or chest pain. Review of Systems Cardiovascular: Cardiovascular: Reports no additional cardiovascular complaints, Denies chest pain and Denies pedal edema Respiratory: Respiratory: Reports no additional respiratory complaints and Denies dyspnea Exam Const: General: comfortable and no acute distress Orientation/consciousness: patient oriented x3 GI: Inspection: other (abdomen appears less distended today) GI Palp: Yes Soft to palpation, Yes Tenderness to palpation present (GI) (still with expected incisional tenderness and right-sided tenderness) and No Guarding due to palpation present (GI) Auscultation: normal bowel sounds Other: Colostomy in the mid upper abdomen with liquid brown stool and gas in the bag Extrem: General: no calf tenderness and no edema Objective Data Vital Signs Vital Signs: Vital Signs - 24 hr 06/20/23 14:00 06/20/23 12:00 06/20/23 16:00 Temperature 97.9 F Pulse Rate 106 H 99 102 H Respiratory Rate 17 Blood Pressure 99/64 L Pulse Oximetry 97 06/20/23 21:00 06/20/23 20:00 06/21/23 00:00 Temperature 99.1 F Pulse Rate 113 H 109 H 99 Respiratory Rate 20 Blood Pressure 117/80 Pulse Oximetry 97 06/21/23 04:00 06/21/23 04:00 Temperature 97.7 F Pulse Rate 109
[2023-06-21] MEDS: POTASSIUM CHLORIDE INJ 40 MEQ in SODIUM CHLORIDE 0.9% IV 500 ML 130 MEQ IVPB (10:51)
[2023-06-21] MEDS: LACTATED RINGERS 1,000 ML 150 ML IV CONT (10:51)
--- NOTE | 2023-06-21 13:30 | P.PNIM_ITS ---
Progress Note: A&P Assessment and Plan (1) Colonic mass: Code(s): K63.89 - Other specified diseases of intestine Status: Acute Assessment and Plan: * Patient presented with abdominal pain, diarrhea and hematochezia. * CT abdomen pelvis revealing extensive wall thickening of the sigmoid colon suspicious for colonic malignancy versus possibility of infectious / inflammatory colitis. with possible metastases in the liver, bladder and lymph nodes. * GI and General surgery consulted. * Colonoscopy revealing rectal mass * Continue IV antibiotics flagyl and meropenem * Analgesics and antiemetics p.r.n. * CEA elevated at 46.5 * Diverting colostomy postop day 2 * Wound care consulted * Trend output (2) Large bowel obstruction: Code(s): K56.609 - Unspecified intestinal obstruction, unspecified as to partial versus complete obstruction Status: Acute Assessment and Plan: Likely due to colonic mass. * GI and General surgery consulted. * Diverting colostomy postop day 2 * General surgery to manage post op care (3) Hematochezia: Code(s): K92.1 - Melena Status: Acute Assessment and Plan: patient has experienced hematochezia for the past couple weeks. * Three point drop in H&H since March of 2023. * Monitor H&H * Transfuse if hemoglobin less than 7 * Current H/H 10.1/31.9 (4) Acute hypokalemia: Code(s): E87.6 - Hypokalemia Status: Acute Assessment and Plan: Patient presented with a potassium of 2.6. * Patient received 20 mEq IV in the ED. Repeat potassium was still 2.6. * Patient was prescribed 40 mEq IV potassium to be given and then started on potassium chloride/sodium chloride * 06/16 potassium 2.4, K rider added to fluids * 06/18 Patient's potassium remains between 2.5-2.7. Continue p.o. and IV potassium scheduled. * 06/20 potassium slowly improving. Potassium today 3.2. * Monitor BMP and replace as needed. * Current potassium is 3.4 * give 40 meq IV once (5) Liver lesion: Code(s): K76.9 - Liver disease, unspecified Status: Acute Assessment and Plan: Liver hypodensity seen on CT scan suspicious for metastases. Total bili, AST and ALT all within normal limits. Alk-phos elevated at 224 trending down currently 165 (6) Abdominal pain: Qualifiers: Abdominal location: generalized Qualified Code(s): R10.84 - Generalized abdominal pain Code(s): R10.9 - Unspecified abdominal pain Status: Acute Assessment and Plan: Likely due to colonic mass/obstruction. * Analgesics and anti emetics p.r.n. (7) Benign essential hypertension: Code(s): I10 - Essential (primary) hypertension Status: Chronic Assessment and Plan: BP 111/78 Home oral antihypertensive on hold Hydralazine PRN with parameters Continue to trend BP adjust therapy as indicated (8) Acute kidney injury: Code(s): N17.9 - Acute kidney failure, unspecified Status: Acute Assessment and Plan: * Current BUN/Cr 26/1.70 * Not abnormal on admission with Cr 1.10 * Baseline appears to be 0.9 * Most likely related to dehydration * Continue to trend labs * Continue IV fluids Time Spent With Patient Time: 48 minutes Time with patient: Greater than 35 minutes Subjective Date/time seen: 06/21/23 1330 Interval histor
--- NOTE | 2023-06-21 13:30 | PM.IMPN ---
Progress Note: A&P Assessment and Plan (1) Colonic mass: Code(s): K63.89 - Other specified diseases of intestine Status: Acute Assessment and Plan: Patient presented with abdominal pain, diarrhea and hematochezia. CT abdomen pelvis revealing extensive wall thickening of the sigmoid colon suspicious for colonic malignancy versus possibility of infectious / inflammatory colitis. with possible metastases in the liver, bladder and lymph nodes. GI and General surgery consulted. Colonoscopy revealing rectal mass Continue IV antibiotics flagyl and meropenem Analgesics and antiemetics p.r.n. CEA elevated at 46.5 Diverting colostomy postop day 2 Wound care consulted Trend output (2) Large bowel obstruction: Code(s): K56.609 - Unspecified intestinal obstruction, unspecified as to partial versus complete obstruction Status: Acute Assessment and Plan: Likely due to colonic mass. GI and General surgery consulted. Diverting colostomy postop day 2 General surgery to manage post op care (3) Hematochezia: Code(s): K92.1 - Melena Status: Acute Assessment and Plan: patient has experienced hematochezia for the past couple weeks. Three point drop in H&H since March of 2023. Monitor H&H Transfuse if hemoglobin less than 7 Current H/H 10.1/31.9 (4) Acute hypokalemia: Code(s): E87.6 - Hypokalemia Status: Acute Assessment and Plan: Patient presented with a potassium of 2.6. Patient received 20 mEq IV in the ED. Repeat potassium was still 2.6. Patient was prescribed 40 mEq IV potassium to be given and then started on potassium chloride/sodium chloride 06/16 potassium 2.4, K rider added to fluids 06/18 Patient's potassium remains between 2.5-2.7. Continue p.o. and IV potassium scheduled. 06/20 potassium slowly improving. Potassium today 3.2. Monitor BMP and replace as needed. Current potassium is 3.4 give 40 meq IV once (5) Liver lesion: Code(s): K76.9 - Liver disease, unspecified Status: Acute Assessment and Plan: Liver hypodensity seen on CT scan suspicious for metastases. Total bili, AST and ALT all within normal limits. Alk-phos elevated at 224 trending down currently 165 (6) Abdominal pain: Qualifiers: Abdominal location: generalized Qualified Code(s): R10.84 - Generalized abdominal pain Code(s): R10.9 - Unspecified abdominal pain Status: Acute Assessment and Plan: Likely due to colonic mass/obstruction. Analgesics and anti emetics p.r.n. (7) Benign essential hypertension: Code(s): I10 - Essential (primary) hypertension Status: Chronic Assessment and Plan: BP 111/78 Home oral antihypertensive on hold Hydralazine PRN with parameters Continue to trend BP adjust therapy as indicated (8) Acute kidney injury: Code(s): N17.9 - Acute kidney failure, unspecified Status: Acute Assessment and Plan: Current BUN/Cr 26/1.70 Not abnormal on admission with Cr 1.10 Baseline appears to be 0.9 Most likely related to dehydration Continue to trend labs Continue IV fluids Time Spent With Patient Time: 48 minutes Time with patient: Greater than 35 minutes Subjective Date/time seen: 06/21/23 1330 Interval history: Patient is doing okay. They are working on his colostomy teaching how to do it. Currently he denies any chest pain, shortness a breath, nausea, vomiting, diarrhea constipation. Patient does have stool coming from the stoma. He does state that he has a 3/10 pain. Will continue to monitor and trend at this time. Review of Systems Review of Systems: All systems reviewed & are unremarkable except as noted in HPI and below Exam Narrative: General: well-nourished, well-appearing 58-year-old female, sitting up in bed, comfortable, NARD Neuro: awake, alert
[2023-06-21 13:43] LABS: Magnesium 1.9 mg/dL (1.6-2.3)
--- NOTE | 2023-06-21 15:17 | PCOTNOTE ---
Attempted occupational therapy evaluation, family and patient refused at this time due to no therapy concerns or concerns with returning home. Left a message for Yuir King to cancel order unless there is another reason to see the patient. Following.
[2023-06-21] MEDS: HYDROmorphone HCL INJ (*CRX) 1 MG/ML SYR IV PUSH (18:45)
[2023-06-22] VITALS (9 sets, daily range): BP systolic 132–135; BP diastolic 76–92; PULSE 87–99; RESP 16–18; TEMP 36.5–36.7; O2SAT 96–97
[2023-06-22] MEDS: DEXTROSE 5%/0.9% SOD CHL 1,000 ML 125 ML IV CONT (03:48)
[2023-06-22] MEDS: metroNIDAZOLE 500 MG/ISO 100ML 500 MG/100 ML BAG 100 MG IVPB ×3 (04:51→21:19)
[2023-06-22] MEDS: MEROPENEM 1 GM/NS 100 ML 1 GM/100 ML BAG IVPB ×3 (04:56→20:08)
[2023-06-22 05:35] LABS: Glucose Point of Care 99 mg/dl (65-105)
[2023-06-22] MEDS: IBUPROFEN IV 800 MG/200 ML 800 MG/200 ML BAG 400 MG IVPB ×3 (05:57→21:15)
[2023-06-22] MEDS: HYDROmorphone HCL INJ (*CRX) 1 MG/ML SYR IV PUSH ×4 (06:59→21:14)
[2023-06-22 07:31] LABS: Hematocrit 31.6 % (42.0-52.0); Hemoglobin 10.2 g/dL (14.0-18.0); Mean Corpuscular HGB Conc 32.3 g/dl (32-36); Mean Corpuscular Hemoglobin 29.1 pg (26-34); Mean Platelet Volume 10.1 fl (7.4-10.4); Platelet Count Result 393 k/mm3 (150-375); Red Blood Count 3.51 M/mm3 (4.6-6.20); Red Cell Distribution Width 15.4 % (11.5-14.5); White Blood Count 14.8 K/mm3 (4.5-10.0)
[2023-06-22 07:43] LABS: Alanine Aminotransferase 19 U/L (6-50); Albumin Level 2.7 g/dL (3.5-5.1); Alkaline Phosphatase 178 U/L (38-126); Anion Gap 6 mmol/L (8-16); Aspartate Amino Transferase 29 U/L (17-59); Bilirubin,Total 0.5 mg/dL (0.2-1.3); Blood Urea Nitrogen 25 mg/dL (9-20); Calcium 7.8 mg/dL (8.4-10.2); Carbon Dioxide 22 mmol/L (22-30); Chloride 111 mmol/L (98-107); Estimated CRCL calculation 55 ml/min; Estimated Glomerular Filt Rate > 60; Glucose 87 mg/dL (65-110); Potassium 2.9 mmol/L (3.4-5.0); Sodium 139 mmol/L (137-145)
[2023-06-22] MEDS: PANTOPRAZOLE SODIUM IV 40 MG VIAL IV PUSH (08:19)
[2023-06-22] MEDS: ENOXAPARIN 40 MG/0.4 ML SYRINGE SUB-Q (08:19)
[2023-06-22 08:58] LABS: Band Neutrophils Percent 12 % (0-6); Eosinophils Absolute Manual 0.29 K/mm3 (0.02-0.5); Eosinophils Percent Manual 2 % (0-4); Lymphocytes Absolute Manual 0.29 K/mm3 (1.1-4.5); Monocytes Absolute Manual 0.29 K/mm3 (0.1-0.90); Monocytes Percent Manual 2 % (3-9); Neutrophils Absolute Manual 13.91 K/mm3 (1.3-6.7); Neutrophils Percent Manual 82 % (46-73); Total Cells Counted 100
[2023-06-22 08:59] LABS: Hypochromasia 1+ (NORMAL); Platelet Estimate Adequate (Adequate); Schistocytes None Seen (NORMAL)
[2023-06-22] MEDS: POTASSIUM CHLORIDE INJ 40 MEQ in SODIUM CHLORIDE 0.9% IV 500 ML 130 MEQ IVPB (10:49)
[2023-06-22] MEDS: POTASSIUM CHLORIDE 20 MEQ ER TABLET 80 MEQ PO (10:49)
--- NOTE | 2023-06-22 11:45 | P.PNIM_ITS ---
Progress Note: A&P Assessment and Plan (1) Colonic mass: Code(s): K63.89 - Other specified diseases of intestine Status: Acute Assessment and Plan: * Patient presented with abdominal pain, diarrhea and hematochezia. * CT abdomen pelvis revealing extensive wall thickening of the sigmoid colon suspicious for colonic malignancy versus possibility of infectious / inflammatory colitis. with possible metastases in the liver, bladder and lymph nodes. * GI and General surgery consulted. * Colonoscopy revealing rectal mass * Continue IV antibiotics flagyl and meropenem * Analgesics and antiemetics p.r.n. * CEA elevated at 46.5 * Diverting colostomy postop day 3 * Wound care consulted * Advance diet to full liquids * Trend output (2) Large bowel obstruction: Code(s): K56.609 - Unspecified intestinal obstruction, unspecified as to partial versus complete obstruction Status: Acute Assessment and Plan: Likely due to colonic mass. * GI and General surgery consulted. * Diverting colostomy postop day 3 * General surgery to manage post op care (3) Hematochezia: Code(s): K92.1 - Melena Status: Acute Assessment and Plan: patient has experienced hematochezia for the past couple weeks. * Three point drop in H&H since March of 2023. * Monitor H&H * Transfuse if hemoglobin less than 7 * Current H/H 10.2/31.6 (4) Acute hypokalemia: Code(s): E87.6 - Hypokalemia Status: Acute Assessment and Plan: Patient presented with a potassium of 2.6. * Patient received 20 mEq IV in the ED. Repeat potassium was still 2.6. * Patient was prescribed 40 mEq IV potassium to be given and then started on potassium chloride/sodium chloride * 06/16 potassium 2.4, K rider added to fluids * 06/18 Patient's potassium remains between 2.5-2.7. Continue p.o. and IV potassium scheduled. * 06/20 potassium slowly improving. Potassium today 3.2. * Monitor BMP and replace as needed. * Current potassium is 2.9 * give 40 meq PO x 2 and 40 meq IV x 1 * check magnesium * trend labs * replace as indicated * Stop fluids (5) Liver lesion: Code(s): K76.9 - Liver disease, unspecified Status: Acute Assessment and Plan: Liver hypodensity seen on CT scan suspicious for metastases. Total bili, AST and ALT all within normal limits. Alk-phos elevated at 224 at admission, currently 178 (6) Abdominal pain: Qualifiers: Abdominal location: generalized Qualified Code(s): R10.84 - Generalized abdominal pain Code(s): R10.9 - Unspecified abdominal pain Status: Acute Assessment and Plan: Likely due to colonic mass/obstruction. * Analgesics and anti emetics p.r.n. (7) Benign essential hypertension: Code(s): I10 - Essential (primary) hypertension Status: Chronic Assessment and Plan: BP 135/92 Home oral antihypertensive on hold Hydralazine PRN with parameters Continue to trend BP adjust therapy as indicated (8) Acute kidney injury: Code(s): N17.9 - Acute kidney failure, unspecified Status: Acute Assessment and Plan: * Current BUN/Cr 25/1.20 * Not abnormal on admission with Cr 1.10 * Baseline appears to be 0.9 * Most likely related to dehydration * Continue to trend labs * Stop IV fluids at this time * renal ultrasound normal kidneys without hydronephrosis
--- NOTE | 2023-06-22 11:45 | PM.IMPN ---
Progress Note: A&P Assessment and Plan (1) Colonic mass: Code(s): K63.89 - Other specified diseases of intestine Status: Acute Assessment and Plan: Patient presented with abdominal pain, diarrhea and hematochezia. CT abdomen pelvis revealing extensive wall thickening of the sigmoid colon suspicious for colonic malignancy versus possibility of infectious / inflammatory colitis. with possible metastases in the liver, bladder and lymph nodes. GI and General surgery consulted. Colonoscopy revealing rectal mass Continue IV antibiotics flagyl and meropenem Analgesics and antiemetics p.r.n. CEA elevated at 46.5 Diverting colostomy postop day 3 Wound care consulted Advance diet to full liquids Trend output (2) Large bowel obstruction: Code(s): K56.609 - Unspecified intestinal obstruction, unspecified as to partial versus complete obstruction Status: Acute Assessment and Plan: Likely due to colonic mass. GI and General surgery consulted. Diverting colostomy postop day 3 General surgery to manage post op care (3) Hematochezia: Code(s): K92.1 - Melena Status: Acute Assessment and Plan: patient has experienced hematochezia for the past couple weeks. Three point drop in H&H since March of 2023. Monitor H&H Transfuse if hemoglobin less than 7 Current H/H 10.2/31.6 (4) Acute hypokalemia: Code(s): E87.6 - Hypokalemia Status: Acute Assessment and Plan: Patient presented with a potassium of 2.6. Patient received 20 mEq IV in the ED. Repeat potassium was still 2.6. Patient was prescribed 40 mEq IV potassium to be given and then started on potassium chloride/sodium chloride 06/16 potassium 2.4, K rider added to fluids 06/18 Patient's potassium remains between 2.5-2.7. Continue p.o. and IV potassium scheduled. 06/20 potassium slowly improving. Potassium today 3.2. Monitor BMP and replace as needed. Current potassium is 2.9 give 40 meq PO x 2 and 40 meq IV x 1 check magnesium trend labs replace as indicated Stop fluids (5) Liver lesion: Code(s): K76.9 - Liver disease, unspecified Status: Acute Assessment and Plan: Liver hypodensity seen on CT scan suspicious for metastases. Total bili, AST and ALT all within normal limits. Alk-phos elevated at 224 at admission, currently 178 (6) Abdominal pain: Qualifiers: Abdominal location: generalized Qualified Code(s): R10.84 - Generalized abdominal pain Code(s): R10.9 - Unspecified abdominal pain Status: Acute Assessment and Plan: Likely due to colonic mass/obstruction. Analgesics and anti emetics p.r.n. (7) Benign essential hypertension: Code(s): I10 - Essential (primary) hypertension Status: Chronic Assessment and Plan: BP 135/92 Home oral antihypertensive on hold Hydralazine PRN with parameters Continue to trend BP adjust therapy as indicated (8) Acute kidney injury: Code(s): N17.9 - Acute kidney failure, unspecified Status: Acute Assessment and Plan: Current BUN/Cr 25/1.20 Not abnormal on admission with Cr 1.10 Baseline appears to be 0.9 Most likely related to dehydration Continue to trend labs Stop IV fluids at this time renal ultrasound normal kidneys without hydronephrosis Time Spent With Patient Time: 48 minutes Time with patient: Greater than 35 minutes Subjective Date/time seen: 06/22/23 1145 Interval history: Patient is lying in bed. Patient stated that he is having some pain 4/10. He denies any chest pain, shortness a breath, nausea, vomiting, constipation. It is noted that he is having lots of diarrhea. He did state that he was more hungry. He also stated that he would like to advance his diet. He stated that he would really be interested in some oatmeal. Collaborated with surgery who
--- NOTE | 2023-06-22 12:03 | PCNFU ---
Nutrition Follow-Up Complete: Severe protein calorie malnutrition related to chronic colon mass as evidenced by weight loss 15%/4 months, intake <75% needs >1 month Goal:Advance diet Pt is progressing towards goal. Continue with current goal Pt current nutrition is Clear liquids to advance to full liquids today. Nutrition recommendation: Add Ensure Compact TID with meals Last recorded weight is 78.63 kg. Bowel Motility: +BM 06/21 Labs Reviewed: Hgb:10.2, HCT:31.6, K:2.9, BUN:25 Meds Noted: zofran, protonix, KCL, lovenox Skin: no skin issues noted Additional Notes: Pt started on clears, to advance to full liquids today. Ensure compact TID being ordered with meals. Monitoring for diet advancement, plan of care, labs, weights, intakes Follow up in 3 days
--- NOTE | 2023-06-22 12:33 | PM.PNGS ---
Progress Note: A&P Assessment and Plan (1) Large bowel obstruction: Code(s): K56.609 - Unspecified intestinal obstruction, unspecified as to partial versus complete obstruction Status: Acute Assessment and Plan: Secondary to large obstructing rectal mass. S/p attempted laparoscopic loop colostomy placement with conversion to open mid transverse loop colostomy 06/19. Ostomy functioning well with high output yesterday. Will advance to full liquids and decrease his IV fluids Continue IV meropenem and metronidazole Continue gauze dressing changes over incision Will ask the wound care nurses to see the patient today to help troubleshoot the issues with his ostomy bag leaking (2) Rectal mass: Code(s): K62.89 - Other specified diseases of anus and rectum Status: Acute Assessment and Plan: Metastatic rectal cancer s/p rectal biopsy showing poorly differentiated ulcerated invasive adenocarcinoma Oncology evaluated patient and will follow-up with him as an outpatient. Chemotherapy will have to be deferred until well healed following surgery. (3) Acute kidney injury: Code(s): N17.9 - Acute kidney failure, unspecified Status: Acute Assessment and Plan: Creatinine improved to 1.2 today Will decrease IV fluids Continue to monitor labs (4) Acute hypokalemia: Code(s): E87.6 - Hypokalemia Status: Acute Assessment and Plan: Potassium 2.9 today. He had 80 meq oral KCL and 40 meq KCL IV ordered. Monitor labs. (5) Hematochezia: Code(s): K92.1 - Melena Status: Acute (6) Liver lesion: Code(s): K76.9 - Liver disease, unspecified Status: Acute (7) Benign essential hypertension: Code(s): I10 - Essential (primary) hypertension Status: Chronic Plan I have discussed the patient's case and plan of care with Dr. Lara. Subjective Subjective Date/Time Seen: 06/22/23 12:33 Post Op day: 3 (Attempted laparoscopic loop colostomy placement with conversion to open transverse loop colostomy placement) Patient reports: no new complaints, feels better, pain is less, tolerating liquids well, voiding w/o difficulty and afebrile Interval history: Patient reports his abdominal pain continues to improve. He denies any nausea or vomiting. He is less bloated. He is hungry and wanting more than clear liquids. He had over a liter of stool out from his ostomy yesterday total. The nurse had to change his colostomy bag once this morning due to it leaking. Exam Const: General: comfortable and no acute distress Orientation/consciousness: patient oriented x3 GI: Inspection: non-distended and incision (incision below ostomy with kitty intact, serous drainage, no erythema) GI Palp: Yes Soft to palpation, Yes Tenderness to palpation present (GI) (expected incisional and right side of abdomen) and No Guarding due to palpation present (GI) Auscultation: normal bowel sounds Other: Colostomy in the mid upper abdomen with liquid brown stool and gas in the bag, leaking left laterally and inferiorly Neuro: General: moves all extremities Extrem: General: no calf tenderness and no edema Psych: Mental Status: mental status grossly normal Insight: Good insight present (Psych) Objective Data Vital Signs Vital Signs: Vital Signs - 24 hr 06/21/23 14:00 06/21/23 16:00 06/21/23 21:26 Temperature 98.8 F 98.1 F Pulse Rate 106 H 108 H 101 H Respiratory Rate 18 18 Blood Pressure 123/81 140/82 Pulse Oximetry 96 95 Oxygen Delivery 06/21/23 20:00 06/21/23 20:00 06/21/23 23:58 Temperature Pulse Rate 101 H 102 H Respiratory Rate 18 Blood Pressure Pulse Oximetry 95 96 Oxygen Delivery Room Air Room Air 06/22/23 00:00 06/22/23 04:00 06/22/23 05:50 Temperature 97.7 F Pulse Rate 96 97 98 Respiratory Rate 18 Blood Pressure 135/92 H Pulse Oximetry 97 Oxygen Delivery 06/22/23 08:00 Temperature Pulse Rate Resp
[2023-06-22 13:06] LABS: Magnesium 2.1 mg/dL (1.6-2.3)
[2023-06-22] MEDS: FUROSEMIDE INJ 40 MG/4 ML VIAL IV PUSH (13:41)
--- NOTE | 2023-06-22 14:03 | PC.NURSE ---
spoke to provider at approx 1335 about the one time order of lasix 40mg to pt. asked provider if i should give lasix because pt potassium was 2.9 this am. pt getting 40meq potassium with iv fluids currently and pt also took 80meq potassium po. provider stated to only give 20mg lasix. lasix was administered at 1341. no other concerns at this time
[2023-06-22] MEDS: ZOLPIDEM TARTRATE (*CRX) 5 MG TABLET PO (21:25)
[2023-06-23] VITALS (9 sets, daily range): BP systolic 151–157; BP diastolic 88–95; PULSE 88–106; RESP 18; TEMP 36.1–37.4; O2SAT 95–98
[2023-06-23] MEDS: metroNIDAZOLE 500 MG/ISO 100ML 500 MG/100 ML BAG 100 MG IVPB ×3 (04:33→22:30)
[2023-06-23] MEDS: HYDROmorphone HCL INJ (*CRX) 1 MG/ML SYR IV PUSH ×6 (04:41→23:48)
[2023-06-23] MEDS: IBUPROFEN IV 800 MG/200 ML 800 MG/200 ML BAG 400 MG IVPB ×2 (04:53→14:10)
[2023-06-23] MEDS: MEROPENEM 1 GM/NS 100 ML 1 GM/100 ML BAG IVPB ×3 (05:53→20:25)
[2023-06-23 07:16] LABS: Basophils Absolute Auto 0.1 K/mm3 (0.0-0.1); Basophils Percent Auto 0.5 % (0.2-1.2); Eosinophils Absolute Auto 0.4 K/mm3 (0-0.3); Eosinophils Percent Auto 4.2 % (0-4.4); Hematocrit 28.6 % (42.0-52.0); Hemoglobin 9.2 g/dL (14.0-18.0); Immature Granulocyte Absolute 0.03 K/mm3 (0.00-0.031); Immature Granulocyte Percent A 0.3 % (0-0.5); Lymphocytes Absolute Auto 0.59 K/mm3 (0.9-3.2); Lymphocytes Percent Auto 5.7 % (18.3-44.2); Mean Corpuscular HGB Conc 32.2 g/dl (32-36); Mean Corpuscular Hemoglobin 29.1 pg (26-34); Mean Corpuscular Volume 90.5 fl (80-100); Mean Platelet Volume 10.5 fl (7.4-10.4); Monocytes Absolute Auto 1.1 K/mm3 (0.1-0.6); Monocytes Percent Auto 10.6 % (2.6-8.5); Neutrophils Absolute Auto 8.1 K/mm3 (1.3-6.7); Neutrophils Percent Auto 78.7 % (45.5-73.1); Platelet Count Result 390 k/mm3 (150-375); Red Blood Count 3.16 M/mm3 (4.6-6.20); Red Cell Distribution Width 15.4 % (11.5-14.5); White Blood Count 10.3 K/mm3 (4.5-10.0)
[2023-06-23 07:45] LABS: Alanine Aminotransferase 15 U/L (6-50); Albumin Level 2.3 g/dL (3.5-5.1); Alkaline Phosphatase 251 U/L (38-126); Anion Gap 7 mmol/L (8-16); Aspartate Amino Transferase 35 U/L (17-59); Bilirubin,Total 0.4 mg/dL (0.2-1.3); Blood Urea Nitrogen 20 mg/dL (9-20); Calcium 7.4 mg/dL (8.4-10.2); Carbon Dioxide 24 mmol/L (22-30); Chloride 109 mmol/L (98-107); Estimated CRCL calculation 59 ml/min; Estimated Glomerular Filt Rate > 60; Glucose 81 mg/dL (65-110); Magnesium 1.8 mg/dL (1.6-2.3); Potassium 2.5 mmol/L (3.4-5.0); Sodium 140 mmol/L (137-145)
--- NOTE | 2023-06-23 08:45 | P.PNIM_ITS ---
Progress Note: A&P Assessment and Plan (1) Colonic mass: Code(s): K63.89 - Other specified diseases of intestine Status: Acute Assessment and Plan: * Patient presented with abdominal pain, diarrhea and hematochezia. * CT abdomen pelvis revealing extensive wall thickening of the sigmoid colon suspicious for colonic malignancy versus possibility of infectious / inflammatory colitis. with possible metastases in the liver, bladder and lymph nodes. * GI and General surgery consulted. * Colonoscopy revealing rectal mass * Continue IV antibiotics flagyl and meropenem * Analgesics and antiemetics p.r.n. * CEA elevated at 46.5 * Diverting colostomy postop day 4 * Wound care consulted * Advance diet to full liquids * Trend output (2) Large bowel obstruction: Code(s): K56.609 - Unspecified intestinal obstruction, unspecified as to partial versus complete obstruction Status: Acute Assessment and Plan: Likely due to colonic mass. * GI and General surgery consulted. * Diverting colostomy postop day 4 * General surgery to manage post op care (3) Hematochezia: Code(s): K92.1 - Melena Status: Acute Assessment and Plan: patient has experienced hematochezia for the past couple weeks. * Three point drop in H&H since March of 2023. * Monitor H&H * Transfuse if hemoglobin less than 7 * Current H/H 9.2/28.6 (4) Acute hypokalemia: Code(s): E87.6 - Hypokalemia Status: Acute Assessment and Plan: Patient presented with a potassium of 2.6. * Patient was prescribed 40 mEq IV potassium to be given and then started on potassium chloride/sodium chloride * 06/16 potassium 2.4, K rider added to fluids * 06/18 Patient's potassium remains between 2.5-2.7. Continue p.o. and IV potassium scheduled. * 06/20 potassium slowly improving. Potassium today 3.2. * Monitor BMP and replace as needed. * Current potassium is 2.5 * give 80 meq PO x 2 and 40 meq IV x 1 * check magnesium * trend labs * replace as indicated * Stop fluids (5) Liver lesion: Code(s): K76.9 - Liver disease, unspecified Status: Acute Assessment and Plan: Liver hypodensity seen on CT scan suspicious for metastases. Total bili, AST and ALT all within normal limits. Alk-phos elevated at 224 at admission, currently 251 (6) Abdominal pain: Qualifiers: Abdominal location: generalized Qualified Code(s): R10.84 - Generalized abdominal pain Code(s): R10.9 - Unspecified abdominal pain Status: Acute Assessment and Plan: Likely due to colonic mass/obstruction. * Analgesics and anti emetics p.r.n. (7) Benign essential hypertension: Code(s): I10 - Essential (primary) hypertension Status: Chronic Assessment and Plan: BP 151/88 Home oral antihypertensive on hold Hydralazine PRN with parameters Continue to trend BP adjust therapy as indicated (8) Acute kidney injury: Code(s): N17.9 - Acute kidney failure, unspecified Status: Acute Assessment and Plan: * Current BUN/Cr 20/1.10 * Not abnormal on admission with Cr 1.10 * Baseline appears to be 0.9 * Most likely related to dehydration * Continue to trend labs * Stop IV fluids at this time * renal ultrasound normal kidneys without hydronephrosis Time Spent With Patient Time: 43 min T
--- NOTE | 2023-06-23 08:45 | PM.IMPN ---
Progress Note: A&P Assessment and Plan (1) Colonic mass: Code(s): K63.89 - Other specified diseases of intestine Status: Acute Assessment and Plan: Patient presented with abdominal pain, diarrhea and hematochezia. CT abdomen pelvis revealing extensive wall thickening of the sigmoid colon suspicious for colonic malignancy versus possibility of infectious / inflammatory colitis. with possible metastases in the liver, bladder and lymph nodes. GI and General surgery consulted. Colonoscopy revealing rectal mass Continue IV antibiotics flagyl and meropenem Analgesics and antiemetics p.r.n. CEA elevated at 46.5 Diverting colostomy postop day 4 Wound care consulted Advance diet to full liquids Trend output (2) Large bowel obstruction: Code(s): K56.609 - Unspecified intestinal obstruction, unspecified as to partial versus complete obstruction Status: Acute Assessment and Plan: Likely due to colonic mass. GI and General surgery consulted. Diverting colostomy postop day 4 General surgery to manage post op care (3) Hematochezia: Code(s): K92.1 - Melena Status: Acute Assessment and Plan: patient has experienced hematochezia for the past couple weeks. Three point drop in H&H since March of 2023. Monitor H&H Transfuse if hemoglobin less than 7 Current H/H 9.2/28.6 (4) Acute hypokalemia: Code(s): E87.6 - Hypokalemia Status: Acute Assessment and Plan: Patient presented with a potassium of 2.6. Patient was prescribed 40 mEq IV potassium to be given and then started on potassium chloride/sodium chloride 06/16 potassium 2.4, K rider added to fluids 06/18 Patient's potassium remains between 2.5-2.7. Continue p.o. and IV potassium scheduled. 06/20 potassium slowly improving. Potassium today 3.2. Monitor BMP and replace as needed. Current potassium is 2.5 give 80 meq PO x 2 and 40 meq IV x 1 check magnesium trend labs replace as indicated Stop fluids (5) Liver lesion: Code(s): K76.9 - Liver disease, unspecified Status: Acute Assessment and Plan: Liver hypodensity seen on CT scan suspicious for metastases. Total bili, AST and ALT all within normal limits. Alk-phos elevated at 224 at admission, currently 251 (6) Abdominal pain: Qualifiers: Abdominal location: generalized Qualified Code(s): R10.84 - Generalized abdominal pain Code(s): R10.9 - Unspecified abdominal pain Status: Acute Assessment and Plan: Likely due to colonic mass/obstruction. Analgesics and anti emetics p.r.n. (7) Benign essential hypertension: Code(s): I10 - Essential (primary) hypertension Status: Chronic Assessment and Plan: BP 151/88 Home oral antihypertensive on hold Hydralazine PRN with parameters Continue to trend BP adjust therapy as indicated (8) Acute kidney injury: Code(s): N17.9 - Acute kidney failure, unspecified Status: Acute Assessment and Plan: Current BUN/Cr 20/1.10 Not abnormal on admission with Cr 1.10 Baseline appears to be 0.9 Most likely related to dehydration Continue to trend labs Stop IV fluids at this time renal ultrasound normal kidneys without hydronephrosis Time Spent With Patient Time: 43 min Time with patient: Greater than 35 minutes Subjective Date/time seen: 06/23/23 08:45 Interval history: patient is lying in bed patient's is next to him. He denies any chest pain, nausea, vomiting, diarrhea constipation. He did state that he has been sleeping good the pieces. He is tolerating p.o. intake. he denies any current chest pain, shortness a breath, nausea, vomiting, diarrhea constipation. Potassium was low in today and did replace it with quite a bit of potassium. Review of Systems Review of Systems: All systems reviewed & are unremarkable ex
[2023-06-23] MEDS: ENOXAPARIN 40 MG/0.4 ML SYRINGE SUB-Q (09:16)
[2023-06-23] MEDS: POTASSIUM CHLORIDE 20 MEQ ER TABLET 80 MEQ PO ×2 (09:16→17:17)
[2023-06-23] MEDS: PANTOPRAZOLE SODIUM IV 40 MG VIAL IV PUSH (09:16)
[2023-06-23] MEDS: POTASSIUM CHLORIDE INJ 40 MEQ in SODIUM CHLORIDE 0.9% IV 500 ML 130 MEQ IVPB (09:35)
[2023-06-23] MEDS: LOPERAMIDE HCL 2 MG CAPSULE PO (11:48)
--- NOTE | 2023-06-23 14:15 | PM.PNGS ---
Progress Note: A&P Assessment and Plan (1) Rectal cancer metastasized to liver: Code(s): C20 - Malignant neoplasm of rectum; C78.7 - Secondary malignant neoplasm of liver and intrahepatic bile duct Status: Acute Assessment and Plan: Patient has a obstructing aggressive rectal cancer which has metastasized to mesenteric lymph nodes and to his liver. He underwent a diverting loop transverse colostomy for decompression 4 days ago. He is improving and we will go ahead advanced into solid food today. Will try to use some Imodium to slow down his liquid bowel move and see if that will help control his hypokalemia. Continue potassium supplement as indicated. Continue meropenem and Flagyl for now as he did have some stool contamination within the abdomen at the time of surgery. White blood cell count is down from 14,000 right after surgery to now 10,300 and he has remained afebrile. Ostomy care nurses to continue teaching. We will need to set up home health nursing for home care of the ostomy and continued support. Try to increase his nutrition over time. Oncology will see him as an outpatient and treatment with chemotherapy is anticipated. Subjective Subjective Date/Time Seen: 06/23/23 14:15 Post Op day: 4 ( Status post laparotomy and placement diverting loop transverse colostomy) Interval history: Patient continues to do better today. He is up in a chair walking to the bathroom in the hallways. Tolerated full liquids without difficulty. He is still having quite a bit of liquid stool coming from his diverting transverse loop colostomy. He is also still having some tenesmus and liquid bowel movements from below. No blood in his stools. He remains afebrile. White blood cell count decreased from yesterday. Potassium is low again and primary service is repleting his potassium with IV and oral supplement. Exam GI: Other: Abdomen is soft and minimally distended. Midline incision appears to be healing well without drainage. Colostomy is viable with a colostomy bridge in place. Output of liquid stool which is nonbloody into the ostomy bag. He has only had 1 episode of leaking from around the ostomy bag. Objective Data Vital Signs Vital Signs: Vital Signs - 24 hr 06/22/23 16:00 06/22/23 20:00 06/22/23 21:00 Temperature 36.6 C Pulse Rate 96 96 98 Respiratory Rate 18 16 Blood Pressure 134/76 Pulse Oximetry 97 96 Oxygen Delivery Room Air 06/22/23 20:00 06/23/23 00:00 06/23/23 04:00 Temperature Pulse Rate 99 88 91 Respiratory Rate Blood Pressure Pulse Oximetry Oxygen Delivery 06/23/23 05:00 06/23/23 08:12 06/23/23 08:00 Temperature 36.1 C L Pulse Rate 94 98 Respiratory Rate 18 Blood Pressure 151/88 H Pulse Oximetry 95 97 Oxygen Delivery Room Air Room Air Intake/Output Intake/Output: Intake & Output 06/20/23 06/21/23 06/22/23 06/23/23 23:59 23:59 23:59 23:59 Intake Total 5000 4744 3590 957 Output Total 600 1925 300 100 Balance 4400 2819 3290 857 Meds/Results Medications: Active Medications Generic Name Dose Route Start Last Admin Trade Name Freq PRN Reason Stop Dose Admin Enalaprilat 2.5 mg 06/19/23 19:00 Enalaprilat 1.25 Mg/Ml Vial IV PUSH Q6HR PRN Blood Pressure HIGH Enoxaparin Sodium 40 mg 06/20/23 09:00 06/23/23 09:16 Enoxaparin 40 Mg/0.4 Ml Syringe SUB-Q 40 mg DAILY JASON Administration Hydromorphone HCl 1 mg 06/19/23 21:09 06/23/23 11:48 Hydromorphone Hcl Inj (*Crx) 1 Mg/Ml Syr IV PUSH 1 mg Q3H PRN Administration Pain Rated 7-10 Meropenem 1 gm in 100 mls @ 200 mls/hr 06/19/23 19:47 06/23/23 12:18 IVPB Infused Q8H JASON Infusion Ibuprofen 800 mg in 200 mls @ 400 mls/hr 06/19/23 22:00 06/23/23 14:10 Caldolor 800 Mg/200 Ml IVPB 400 mls/hr Q8HR JASON Administration Metronidazole 500 mg in 100 mls @ 100 mls/hr 06/19/23 22:00 06/23/23 04:33 Flagyl 500 Mg/Iso
[2023-06-23] MEDS: HYDROcodone/acetaminophen (*CRX) 5-325 MG TABLET 1 TAB PO (22:22)
[2023-06-24] VITALS (8 sets, daily range): BP systolic 169–171; BP diastolic 94–95; PULSE 97–111; RESP 16–20; TEMP 37.1–37.8; O2SAT 95–98
[2023-06-24] MEDS: HYDROmorphone HCL INJ (*CRX) 1 MG/ML SYR IV PUSH ×2 (03:32→20:55)
[2023-06-24] MEDS: MEROPENEM 1 GM/NS 100 ML 1 GM/100 ML BAG IVPB ×3 (03:32→20:56)
[2023-06-24] MEDS: metroNIDAZOLE 500 MG/ISO 100ML 500 MG/100 ML BAG 100 MG IVPB ×3 (05:26→22:11)
[2023-06-24 05:35] LABS: Basophils Percent Auto 0.5 % (0.2-1.2); Eosinophils Absolute Auto 0.4 K/mm3 (0-0.3); Eosinophils Percent Auto 4.9 % (0-4.4); Hematocrit 29.3 % (42.0-52.0); Hemoglobin 9.6 g/dL (14.0-18.0); Immature Granulocyte Absolute 0.06 K/mm3 (0.00-0.031); Immature Granulocyte Percent A 0.8 % (0-0.5); Lymphocytes Absolute Auto 0.65 K/mm3 (0.9-3.2); Lymphocytes Percent Auto 8.6 % (18.3-44.2); Mean Corpuscular HGB Conc 32.8 g/dl (32-36); Mean Corpuscular Hemoglobin 29.2 pg (26-34); Mean Corpuscular Volume 89.1 fl (80-100); Monocytes Absolute Auto 1.2 K/mm3 (0.1-0.6); Monocytes Percent Auto 15.2 % (2.6-8.5); Neutrophils Absolute Auto 5.3 K/mm3 (1.3-6.7); Platelet Count Result 400 k/mm3 (150-375); Red Blood Count 3.29 M/mm3 (4.6-6.20); Red Cell Distribution Width 15.4 % (11.5-14.5); White Blood Count 7.6 K/mm3 (4.5-10.0)
[2023-06-24 05:50] LABS: Alanine Aminotransferase 14 U/L (6-50); Albumin Level 2.3 g/dL (3.5-5.1); Alkaline Phosphatase 297 U/L (38-126); Anion Gap 3 mmol/L (8-16); Aspartate Amino Transferase 26 U/L (17-59); Bilirubin,Total 0.4 mg/dL (0.2-1.3); Blood Urea Nitrogen 18 mg/dL (9-20); Calcium 7.5 mg/dL (8.4-10.2); Carbon Dioxide 25 mmol/L (22-30); Chloride 109 mmol/L (98-107); Estimated CRCL calculation 65 ml/min; Estimated Glomerular Filt Rate > 60; Glucose 97 mg/dL (65-110); Magnesium 1.7 mg/dL (1.6-2.3); Sodium 137 mmol/L (137-145)
[2023-06-24] MEDS: oxyCODONE HCL (*CRX) 5 MG TAB IR PO ×2 (05:52→13:20)
--- NOTE | 2023-06-24 07:44 | P.PNIM_ITS ---
Progress Note: A&P Assessment and Plan (1) Colonic mass: Code(s): K63.89 - Other specified diseases of intestine Status: Acute Assessment and Plan: * Patient presented with abdominal pain, diarrhea and hematochezia. * CT abdomen pelvis revealing extensive wall thickening of the sigmoid colon suspicious for colonic malignancy versus possibility of infectious / inflammatory colitis. with possible metastases in the liver, bladder and lymph nodes. * GI and General surgery consulted. * Colonoscopy revealing rectal mass * Continue IV antibiotics flagyl and meropenem * Analgesics and antiemetics p.r.n. * CEA elevated at 46.5 * Diverting colostomy postop day 5 * Wound care consulted * Advance diet to regular * Trend output. Improving, yesterday (06/23) stool was 1300 ml, only 700 ml in the last 24 hours. (2) Large bowel obstruction: Code(s): K56.609 - Unspecified intestinal obstruction, unspecified as to partial versus complete obstruction Status: Acute Assessment and Plan: Likely due to colonic mass. * GI and General surgery consulted. * Diverting colostomy postop day 5 * General surgery to manage post op care (3) Hematochezia: Code(s): K92.1 - Melena Status: Acute Assessment and Plan: patient has experienced hematochezia for the past couple weeks. * Three point drop in H&H since March of 2023. * Monitor H&H * Transfuse if hemoglobin less than 7 * Current H/H 9.6/29.3 (4) Acute hypokalemia: Code(s): E87.6 - Hypokalemia Status: Acute Assessment and Plan: Patient presented with a potassium of 2.6. * Patient was prescribed 40 mEq IV potassium to be given and then started on potassium chloride/sodium chloride * 06/16 potassium 2.4, K rider added to fluids * 06/18 Patient's potassium remains between 2.5-2.7. Continue p.o. and IV pot assium scheduled. * 06/20 potassium slowly improving. Potassium today 3.2. * Monitor BMP and replace as needed. * Current potassium is 3.0 * give 60 meq PO x 1 * check magnesium * trend labs * replace as indicated * Stop fluids (5) Liver lesion: Code(s): K76.9 - Liver disease, unspecified Status: Acute Assessment and Plan: Liver hypodensity seen on CT scan suspicious for metastases. Total bili, AST and ALT all within normal limits. Alk-phos elevated at 224 at admission, currently 251 (6) Abdominal pain: Qualifiers: Abdominal location: generalized Qualified Code(s): R10.84 - Generalized abdominal pain Code(s): R10.9 - Unspecified abdominal pain Status: Acute Assessment and Plan: Likely due to colonic mass/obstruction. * Analgesics and anti emetics p.r.n. (7) Benign essential hypertension: Code(s): I10 - Essential (primary) hypertension Status: Chronic Assessment and Plan: BP 151/88 Home oral antihypertensive on hold Hydralazine PRN with parameters Continue to trend BP adjust therapy as indicated (8) Acute kidney injury: Code(s): N17.9 - Acute kidney failure, unspecified Status: Acute Assessment and Plan: * Current BUN/Cr 20/1.10 * Not abnormal on admission with Cr 1.10 * Baseline appears to be 0.9 * Most likely related to dehydration * Continue to trend labs * Stop IV fluids at this time * renal ultrasound normal kidneys without hydronephrosis
--- NOTE | 2023-06-24 07:44 | PM.IMPN ---
Progress Note: A&P Assessment and Plan (1) Colonic mass: Code(s): K63.89 - Other specified diseases of intestine Status: Acute Assessment and Plan: Patient presented with abdominal pain, diarrhea and hematochezia. CT abdomen pelvis revealing extensive wall thickening of the sigmoid colon suspicious for colonic malignancy versus possibility of infectious / inflammatory colitis. with possible metastases in the liver, bladder and lymph nodes. GI and General surgery consulted. Colonoscopy revealing rectal mass Continue IV antibiotics flagyl and meropenem Analgesics and antiemetics p.r.n. CEA elevated at 46.5 Diverting colostomy postop day 5 Wound care consulted Advance diet to regular Trend output. Improving, yesterday (06/23) stool was 1300 ml, only 700 ml in the last 24 hours. (2) Large bowel obstruction: Code(s): K56.609 - Unspecified intestinal obstruction, unspecified as to partial versus complete obstruction Status: Acute Assessment and Plan: Likely due to colonic mass. GI and General surgery consulted. Diverting colostomy postop day 5 General surgery to manage post op care (3) Hematochezia: Code(s): K92.1 - Melena Status: Acute Assessment and Plan: patient has experienced hematochezia for the past couple weeks. Three point drop in H&H since March of 2023. Monitor H&H Transfuse if hemoglobin less than 7 Current H/H 9.6/29.3 (4) Acute hypokalemia: Code(s): E87.6 - Hypokalemia Status: Acute Assessment and Plan: Patient presented with a potassium of 2.6. Patient was prescribed 40 mEq IV potassium to be given and then started on potassium chloride/sodium chloride 06/16 potassium 2.4, K rider added to fluids 06/18 Patient's potassium remains between 2.5-2.7. Continue p.o. and IV potassium scheduled. 06/20 potassium slowly improving. Potassium today 3.2. Monitor BMP and replace as needed. Current potassium is 3.0 give 60 meq PO x 1 check magnesium trend labs replace as indicated Stop fluids (5) Liver lesion: Code(s): K76.9 - Liver disease, unspecified Status: Acute Assessment and Plan: Liver hypodensity seen on CT scan suspicious for metastases. Total bili, AST and ALT all within normal limits. Alk-phos elevated at 224 at admission, currently 251 (6) Abdominal pain: Qualifiers: Abdominal location: generalized Qualified Code(s): R10.84 - Generalized abdominal pain Code(s): R10.9 - Unspecified abdominal pain Status: Acute Assessment and Plan: Likely due to colonic mass/obstruction. Analgesics and anti emetics p.r.n. (7) Benign essential hypertension: Code(s): I10 - Essential (primary) hypertension Status: Chronic Assessment and Plan: BP 151/88 Home oral antihypertensive on hold Hydralazine PRN with parameters Continue to trend BP adjust therapy as indicated (8) Acute kidney injury: Code(s): N17.9 - Acute kidney failure, unspecified Status: Acute Assessment and Plan: Current BUN/Cr 20/1.10 Not abnormal on admission with Cr 1.10 Baseline appears to be 0.9 Most likely related to dehydration Continue to trend labs Stop IV fluids at this time renal ultrasound normal kidneys without hydronephrosis (9) Edema: Code(s): R60.9 - Edema, unspecified Status: Acute Assessment and Plan: Generalized edema to BLE, scrotum, and LUE. Lung sounds clear and patient denies SOB. Administer IVP lasix 40 mg and IV albumin x1. Encourage elevation of scrotum and legs. CARLOS childress ordered. Subjective Date/time seen: 06/24/23 07:44 Interval history: This is a 58 year old male with a past medical history of BPH, HLD, and DM II who presented to [place] ED on 06/15 with complaints of abdominal pain, diarrhea, and hematochezia. He was found
[2023-06-24] MEDS: POTASSIUM CHLORIDE 20 MEQ ER TABLET 60 MEQ PO (08:52)
[2023-06-24] MEDS: ENOXAPARIN 40 MG/0.4 ML SYRINGE SUB-Q (08:52)
[2023-06-24] MEDS: HYDROcodone/acetaminophen (*CRX) 5-325 MG TABLET 1 TAB PO (08:53)
[2023-06-24] MEDS: PANTOPRAZOLE 40 MG TABLET PO (08:53)
[2023-06-24] MEDS: CYCLOBENZAPRINE HCL 10 MG TABLET PO (10:07)
[2023-06-24] MEDS: ALBUMIN HUMAN 25% 12.5 GM/50ML 50 ML IVPB (15:03)
[2023-06-24] MEDS: KETOROLAC 15 MG/ML VIAL (*BKC) IV PUSH ×2 (16:10→22:11)
[2023-06-24] MEDS: FUROSEMIDE INJ 40 MG/4 ML VIAL IV PUSH (16:16)
--- NOTE | 2023-06-24 16:37 | PM.PNGS ---
Progress Note: A&P Assessment and Plan (1) Large bowel obstruction: Code(s): K56.609 - Unspecified intestinal obstruction, unspecified as to partial versus complete obstruction Status: Resolved Assessment and Plan: Colostomy working well. No signs colonic obstruction at this point (2) Rectal cancer metastasized to liver: Code(s): C20 - Malignant neoplasm of rectum; C78.7 - Secondary malignant neoplasm of liver and intrahepatic bile duct Status: Chronic Assessment and Plan: Patient with carcinomatosis. Back pain may be related to extensive metastases. (3) Acute hypokalemia: Code(s): E87.6 - Hypokalemia Status: Acute Assessment and Plan: Improving with supplement Subjective Subjective Date/Time Seen: 06/24/23 16:37 Post Op day: 5 Patient reports: tolerating a regular diet, afebrile and other (Complains of back pain) Exam Const: General: cooperative and tired appearing GI: Inspection: non-distended, incision (Stool leaking on incision. Stoma appliance to be changed with dressing ) and other (Incision is dry, no purulent fluid; colostomy working) GI Palp: Yes Soft to palpation, Yes Tenderness to palpation present (GI), No Guarding due to palpation present (GI), No Hernia present and No Palpable mass present Objective Data Vital Signs Vital Signs: Vital Signs - 24 hr 06/23/23 20:35 06/23/23 20:00 06/24/23 00:00 Temperature 37.4 C Pulse Rate 95 106 H 99 Respiratory Rate 18 Blood Pressure 157/95 H Pulse Oximetry 98 Oxygen Delivery 06/24/23 04:00 06/24/23 08:50 06/24/23 08:00 Temperature Pulse Rate 98 97 Respiratory Rate Blood Pressure Pulse Oximetry Oxygen Delivery Room Air 06/24/23 12:00 Temperature Pulse Rate 97 Respiratory Rate Blood Pressure Pulse Oximetry Oxygen Delivery Intake/Output Intake/Output: Intake & Output 06/21/23 06/22/23 06/23/23 06/24/23 23:59 23:59 23:59 23:59 Intake Total 4744 3590 3289 756 Output Total 1925 300 700 Balance 2819 3290 2589 756 Colostomy output decreased to 700 cc last 24 hours. Meds/Results Medications: Active Medications Generic Name Dose Route Start Last Admin Trade Name Freq PRN Reason Stop Dose Admin Acetaminophen 1,000 mg 06/23/23 14:22 Acetaminophen 500 Mg Tablet PO Q6H PRN Mild Pain (1-3) or Fever Hydrocodone Bitart/Acetaminophen 1 tab 06/23/23 14:22 06/24/23 08:53 Hydrocodone/Acetaminophen (*Crx) 5-325 Mg Tablet PO 1 tab Q4H PRN Administration Pain Rated 4-6 Cyclobenzaprine HCl 10 mg 06/24/23 09:42 06/24/23 10:07 Cyclobenzaprine Hcl 10 Mg Tablet PO 10 mg Q12H PRN Administration Muscle Spasm Enalaprilat 2.5 mg 06/19/23 19:00 Enalaprilat 1.25 Mg/Ml Vial IV PUSH Q6HR PRN Blood Pressure HIGH Enoxaparin Sodium 40 mg 06/20/23 09:00 06/24/23 08:52 Enoxaparin 40 Mg/0.4 Ml Syringe SUB-Q 40 mg DAILY JASON Administration Hydromorphone HCl 1 mg 06/19/23 21:09 06/24/23 03:32 Hydromorphone Hcl Inj (*Crx) 1 Mg/Ml Syr IV PUSH 1 mg Q3H PRN Administration Pain Rated 7-10 Meropenem 1 gm in 100 mls @ 200 mls/hr 06/19/23 19:47 06/24/23 11:59 IVPB Infused Q8H JASON Infusion Metronidazole 500 mg in 100 mls @ 100 mls/hr 06/19/23 22:00 06/24/23 14:21 Flagyl 500 Mg/Iso Soln 100 Ml IVPB Infused Q8HR JASON Infusion Ketorolac Tromethamine 15 mg 06/24/23 13:42 06/24/23 16:10 Ketorolac 15 Mg/Ml Vial (*Bkc) IV PUSH 15 mg Q6H PRN Administration back pain Loperamide HCl 2 mg 06/23/23 14:21 Loperamide Hcl 2 Mg Capsule PO PRN PRN Diarrhea Metoprolol Tartrate 5 mg 06/19/23 19:00 Metoprolol Tartrate Inj 5 Mg/5 Ml Vial IV PUSH Q6H PRN Hypertension Ondansetron HCl 4 mg 06/19/23 21:09 Ondansetron Inj 4 Mg/2 Ml Vial IV PUSH Q4H PRN Nausea And Vomiting Oxycodone HCl 5 mg 06/23/23 14:22 06/24/23 13:20 O
[2023-06-25] VITALS (8 sets, daily range): BP systolic 152–165; BP diastolic 87–103; PULSE 83–117; RESP 16–18; TEMP 37.4–37.5; O2SAT 97–98
[2023-06-25] MEDS: MEROPENEM 1 GM/NS 100 ML 1 GM/100 ML BAG IVPB ×3 (03:51→20:36)
[2023-06-25] MEDS: KETOROLAC 15 MG/ML VIAL (*BKC) IV PUSH ×3 (04:33→22:09)
[2023-06-25] MEDS: metroNIDAZOLE 500 MG/ISO 100ML 500 MG/100 ML BAG 100 MG IVPB ×3 (05:16→22:06)
--- NOTE | 2023-06-25 06:53 | P.PNIM_ITS ---
Progress Note: A&P Assessment and Plan (1) Colonic mass: Code(s): K63.89 - Other specified diseases of intestine Status: Acute Assessment and Plan: * Patient presented with abdominal pain, diarrhea and hematochezia. * CT abdomen pelvis revealing extensive wall thickening of the sigmoid colon suspicious for colonic malignancy versus possibility of infectious / inflammatory colitis. with possible metastases in the liver, bladder and lymph nodes. * GI and General surgery consulted. * Colonoscopy revealing rectal mass * Continue IV antibiotics flagyl and meropenem * Analgesics and antiemetics p.r.n. * CEA elevated at 46.5 * Diverting colostomy postop day 5 * Wound care consulted * Advance diet to regular * Trend output. Improving, yesterday (06/23) stool was 1300 ml. Unsure of output in the last 24 hours as nothing was charted. (2) Large bowel obstruction: Code(s): K56.609 - Unspecified intestinal obstruction, unspecified as to partial versus complete obstruction Status: Resolved Assessment and Plan: Likely due to colonic mass. * GI and General surgery consulted. * Diverting colostomy postop day 5 * General surgery to manage post op care (3) Hematochezia: Code(s): K92.1 - Melena Status: Acute Assessment and Plan: patient has experienced hematochezia for the past couple weeks. * Three point drop in H&H since March of 2023. * Monitor H&H * Transfuse if hemoglobin less than 7 * Current H/H 9.6/29.3 (4) Acute hypokalemia: Code(s): E87.6 - Hypokalemia Status: Acute Assessment and Plan: Patient presented with a potassium of 2.6. * Patient was prescribed 40 mEq IV potassium to be given and then started on potassium chloride/sodium chloride * 06/16 potassium 2.4, K rider added to fluids * 06/18 Patient's potassium remains between 2.5-2.7. Continue p.o. and IV potassium scheduled. * 06/20 potassium slowly improving. Potassium today 3.2. * Monitor BMP and replace as needed. * Current potassium is 3.0 * give 60 meq PO x 1 * check magnesium * trend labs * replace as indicated * Stop fluids (5) Liver lesion: Code(s): K76.9 - Liver disease, unspecified Status: Acute Assessment and Plan: Liver hypodensity seen on CT scan suspicious for metastases. Total bili, AST and ALT all within normal limits. Alk-phos elevated at 224 at admission, currently 251 (6) Abdominal pain: Qualifiers: Abdominal location: generalized Qualified Code(s): R10.84 - Generalized abdominal pain Code(s): R10.9 - Unspecified abdominal pain Status: Acute Assessment and Plan: Likely due to colonic mass/obstruction. * Analgesics and anti emetics p.r.n. (7) Benign essential hypertension: Code(s): I10 - Essential (primary) hypertension Status: Chronic Assessment and Plan: BP 151/88 Home oral antihypertensive on hold Hydralazine PRN with parameters Continue to trend BP adjust therapy as indicated (8) Acute kidney injury: Code(s): N17.9 - Acute kidney failure, unspecified Status: Acute Assessment and Plan: * Current BUN/Cr 20/1.10 * Not abnormal on admission with Cr 1.10 * Baseline appears to be 0.9 * Most likely related to dehydration * Continue to trend labs * Stop IV fluids at this time * renal ultrasound normal kidneys without hydronephrosis
--- NOTE | 2023-06-25 06:53 | PM.IMPN ---
Progress Note: A&P Assessment and Plan (1) Colonic mass: Code(s): K63.89 - Other specified diseases of intestine Status: Acute Assessment and Plan: Patient presented with abdominal pain, diarrhea and hematochezia. CT abdomen pelvis revealing extensive wall thickening of the sigmoid colon suspicious for colonic malignancy versus possibility of infectious / inflammatory colitis. with possible metastases in the liver, bladder and lymph nodes. GI and General surgery consulted. Colonoscopy revealing rectal mass Continue IV antibiotics flagyl and meropenem Analgesics and antiemetics p.r.n. CEA elevated at 46.5 Diverting colostomy postop day 5 Wound care consulted Advance diet to regular Trend output. Improving, yesterday (06/23) stool was 1300 ml. Unsure of output in the last 24 hours as nothing was charted. (2) Large bowel obstruction: Code(s): K56.609 - Unspecified intestinal obstruction, unspecified as to partial versus complete obstruction Status: Resolved Assessment and Plan: Likely due to colonic mass. GI and General surgery consulted. Diverting colostomy postop day 5 General surgery to manage post op care (3) Hematochezia: Code(s): K92.1 - Melena Status: Acute Assessment and Plan: patient has experienced hematochezia for the past couple weeks. Three point drop in H&H since March of 2023. Monitor H&H Transfuse if hemoglobin less than 7 Current H/H 9.6/29.3 (4) Acute hypokalemia: Code(s): E87.6 - Hypokalemia Status: Acute Assessment and Plan: Patient presented with a potassium of 2.6. Patient was prescribed 40 mEq IV potassium to be given and then started on potassium chloride/sodium chloride 06/16 potassium 2.4, K rider added to fluids 06/18 Patient's potassium remains between 2.5-2.7. Continue p.o. and IV potassium scheduled. 06/20 potassium slowly improving. Potassium today 3.2. Monitor BMP and replace as needed. Current potassium is 3.0 give 60 meq PO x 1 check magnesium trend labs replace as indicated Stop fluids (5) Liver lesion: Code(s): K76.9 - Liver disease, unspecified Status: Acute Assessment and Plan: Liver hypodensity seen on CT scan suspicious for metastases. Total bili, AST and ALT all within normal limits. Alk-phos elevated at 224 at admission, currently 251 (6) Abdominal pain: Qualifiers: Abdominal location: generalized Qualified Code(s): R10.84 - Generalized abdominal pain Code(s): R10.9 - Unspecified abdominal pain Status: Acute Assessment and Plan: Likely due to colonic mass/obstruction. Analgesics and anti emetics p.r.n. (7) Benign essential hypertension: Code(s): I10 - Essential (primary) hypertension Status: Chronic Assessment and Plan: BP 151/88 Home oral antihypertensive on hold Hydralazine PRN with parameters Continue to trend BP adjust therapy as indicated (8) Acute kidney injury: Code(s): N17.9 - Acute kidney failure, unspecified Status: Acute Assessment and Plan: Current BUN/Cr 20/1.10 Not abnormal on admission with Cr 1.10 Baseline appears to be 0.9 Most likely related to dehydration Continue to trend labs Stop IV fluids at this time renal ultrasound normal kidneys without hydronephrosis (9) Edema: Code(s): R60.9 - Edema, unspecified Status: Acute Assessment and Plan: Generalized edema to BLE, scrotum, and LUE. Lung sounds clear and patient denies SOB. Encourage elevation of scrotum and legs. CARLOS hose ordered. Replace lytes today. Subjective Date/time seen: 06/25/23 06:53 Interval history: This is a 58 year old male with a past medical history of BPH, HLD, and DM II who presented to [facility] on 06/15 with complaints of abdominal pain, diarrhea, and hematochezia. He was
[2023-06-25 07:17] LABS: Alanine Aminotransferase 14 U/L (6-50); Albumin Level 2.6 g/dL (3.5-5.1); Alkaline Phosphatase 326 U/L (38-126); Anion Gap 7 mmol/L (8-16); Aspartate Amino Transferase 28 U/L (17-59); Bilirubin,Total 0.5 mg/dL (0.2-1.3); Blood Urea Nitrogen 13 mg/dL (9-20); Calcium 7.4 mg/dL (8.4-10.2); Carbon Dioxide 27 mmol/L (22-30); Chloride 101 mmol/L (98-107); Estimated CRCL calculation 65 ml/min; Estimated Glomerular Filt Rate > 60; Glucose 110 mg/dL (65-110); Magnesium 1.7 mg/dL (1.6-2.3); Potassium 2.3 mmol/L (3.4-5.0); Sodium 135 mmol/L (137-145)
[2023-06-25 07:19] LABS: Basophils Percent Auto 0.6 % (0.2-1.2); Eosinophils Absolute Auto 0.2 K/mm3 (0-0.3); Eosinophils Percent Auto 3.1 % (0-4.4); Hematocrit 31.2 % (42.0-52.0); Hemoglobin 10.3 g/dL (14.0-18.0); Immature Granulocyte Absolute 0.07 K/mm3 (0.00-0.031); Lymphocytes Absolute Auto 0.74 K/mm3 (0.9-3.2); Lymphocytes Percent Auto 10.8 % (18.3-44.2); Mean Corpuscular Hemoglobin 29.1 pg (26-34); Mean Corpuscular Volume 88.1 fl (80-100); Mean Platelet Volume 10.3 fl (7.4-10.4); Monocytes Absolute Auto 1.2 K/mm3 (0.1-0.6); Monocytes Percent Auto 17.9 % (2.6-8.5); Neutrophils Absolute Auto 4.6 K/mm3 (1.3-6.7); Neutrophils Percent Auto 66.6 % (45.5-73.1); Platelet Count Result 456 k/mm3 (150-375); Red Blood Count 3.54 M/mm3 (4.6-6.20); Red Cell Distribution Width 14.9 % (11.5-14.5); White Blood Count 6.9 K/mm3 (4.5-10.0)
[2023-06-25] MEDS: POTASSIUM CHLORIDE 20 MEQ ER TABLET 80 MEQ PO ×2 (08:03→16:43)
[2023-06-25] MEDS: POTASSIUM CHLORIDE INJ 40 MEQ in SODIUM CHLORIDE 0.9% IV 500 ML 130 MEQ IVPB ×2 (08:03→23:25)
[2023-06-25] MEDS: MAGNESIUM OXIDE 400 MG TABLET PO (08:04)
[2023-06-25] MEDS: PANTOPRAZOLE 40 MG TABLET PO (09:25)
[2023-06-25] MEDS: ENOXAPARIN 40 MG/0.4 ML SYRINGE SUB-Q (09:25)
[2023-06-25 12:23] LABS: Anion Gap 2 mmol/L (8-16); Blood Urea Nitrogen 13 mg/dL (9-20); Calcium 7.4 mg/dL (8.4-10.2); Carbon Dioxide 31 mmol/L (22-30); Chloride 101 mmol/L (98-107); Estimated CRCL calculation 72 ml/min; Estimated Glomerular Filt Rate > 60; Glucose 110 mg/dL (65-110); Potassium 3.1 mmol/L (3.4-5.0); Sodium 134 mmol/L (137-145)
--- NOTE | 2023-06-25 13:34 | PM.PNGS ---
Progress Note: A&P Assessment and Plan (1) Rectal cancer metastasized to liver: Code(s): C20 - Malignant neoplasm of rectum; C78.7 - Secondary malignant neoplasm of liver and intrahepatic bile duct Status: Chronic (2) Large bowel obstruction: Code(s): K56.609 - Unspecified intestinal obstruction, unspecified as to partial versus complete obstruction Status: Resolved Assessment and Plan: With transverse loop colostomy (3) Status post colostomy: Code(s): Z93.3 - Colostomy status Status: Acute Assessment and Plan: Colostomy working well, wound seems to be healing well. Patient making slow progress likely due to carcinomatosis. Subjective Subjective Date/Time Seen: 06/25/23 13:34 Post Op day: #6 Patient reports: no new complaints (Sleepy today. Got diuretic last night and was up urinating hourly.), feels better (Toradol really helps his back pain. Much better.), tolerating a regular diet (Not eating because he is afraid it will contribute to body edema), bowel movement (Per colostomy.) and afebrile Exam Const: General: comfortable and tired appearing (Sleepy this morning as he did not get much sleep last night) GI: Inspection: non-distended, incision (Dry and healing) and other (Colostomy working, no further leakage from appliance) GI Palp: Yes Soft to palpation and Yes Tenderness to palpation present (GI) (Minimal tenderness) Objective Data Vital Signs Vital Signs: Vital Signs - 24 hr 06/24/23 16:00 06/24/23 20:25 06/24/23 20:00 Temperature 37.8 C H Pulse Rate 106 H 104 H Respiratory Rate 16 Blood Pressure 171/94 H Pulse Oximetry 95 Oxygen Delivery Room Air 06/24/23 21:50 06/24/23 20:00 06/25/23 00:00 Temperature 37.1 C Pulse Rate 111 H 108 H 83 Respiratory Rate 20 Blood Pressure 169/95 H Pulse Oximetry 98 Oxygen Delivery 06/25/23 04:00 06/25/23 05:00 Temperature 37.4 C Pulse Rate 97 94 Respiratory Rate 18 Blood Pressure 165/87 H Pulse Oximetry 97 Oxygen Delivery Intake/Output Intake/Output: Intake & Output 06/22/23 06/23/23 06/24/23 06/25/23 23:59 23:59 23:59 23:59 Intake Total 3590 3289 1126 100 Output Total 300 700 125 Balance 3290 9639 1126 -25 Meds/Results Medications: Active Medications Generic Name Dose Route Start Last Admin Trade Name Freq PRN Reason Stop Dose Admin Acetaminophen 1,000 mg 06/23/23 14:22 Acetaminophen 500 Mg Tablet PO Q6H PRN Mild Pain (1-3) or Fever Hydrocodone Bitart/Acetaminophen 1 tab 06/23/23 14:22 06/24/23 08:53 Hydrocodone/Acetaminophen (*Crx) 5-325 Mg Tablet PO 1 tab Q4H PRN Administration Pain Rated 4-6 Cyclobenzaprine HCl 10 mg 06/24/23 09:42 06/24/23 10:07 Cyclobenzaprine Hcl 10 Mg Tablet PO 10 mg Q12H PRN Administration Muscle Spasm Enalaprilat 2.5 mg 06/19/23 19:00 Enalaprilat 1.25 Mg/Ml Vial IV PUSH Q6HR PRN Blood Pressure HIGH Enoxaparin Sodium 40 mg 06/20/23 09:00 06/25/23 09:25 Enoxaparin 40 Mg/0.4 Ml Syringe SUB-Q 40 mg DAILY JASON Administration Hydromorphone HCl 1 mg 06/19/23 21:09 06/24/23 20:55 Hydromorphone Hcl Inj (*Crx) 1 Mg/Ml Syr IV PUSH 1 mg Q3H PRN Administration Pain Rated 7-10 Meropenem 1 gm in 100 mls @ 200 mls/hr 06/19/23 19:47 06/25/23 11:49 IVPB 200 mls/hr Q8H JASON Administration Metronidazole 500 mg in 100 mls @ 100 mls/hr 06/19/23 22:00 06/25/23 05:16 Flagyl 500 Mg/Iso Soln 100 Ml IVPB 100 mls/hr Q8HR JASON Administration Ketorolac Tromethamine 15 mg 06/24/23 13:42 06/25/23 04:33 Ketorolac 15 Mg/Ml Vial (*Bkc) IV PUSH 15 mg Q6H PRN Administration back pain Loperamide HCl 2 mg 06/23/23 14:21 Loperamide Hcl 2 Mg Capsule PO PRN PRN Diarrhea Metoprolol Tartrate 5 mg 06/19/23 19:00 Metoprolol Tartrate Inj 5 Mg/5 Ml Vial IV PUSH Q6H PRN Hypertension Ondansetron HCl 4 mg 06/19/
[2023-06-25] MEDS: FUROSEMIDE INJ 40 MG/4 ML VIAL IV PUSH (16:42)
[2023-06-25 22:03] LABS: Potassium 2.7 mmol/L (3.4-5.0)
[2023-06-25] MEDS: POTASSIUM CHLORIDE 20 MEQ PACKET (FOR LIQUID) PO (23:26)
[2023-06-26] VITALS: PULSE 97
[2023-06-26 04:00] VITALS: PULSE 91
[2023-06-26] MEDS: MEROPENEM 1 GM/NS 100 ML 1 GM/100 ML BAG IVPB (06:14)
[2023-06-26 06:47] LABS: Basophils Absolute Auto 0.1 K/mm3 (0.0-0.1); Basophils Percent Auto 0.6 % (0.2-1.2); Eosinophils Absolute Auto 0.2 K/mm3 (0-0.3); Eosinophils Percent Auto 2.6 % (0-4.4); Hematocrit 30.9 % (42.0-52.0); Immature Granulocyte Absolute 0.08 K/mm3 (0.00-0.031); Lymphocytes Absolute Auto 0.84 K/mm3 (0.9-3.2); Lymphocytes Percent Auto 10.9 % (18.3-44.2); Mean Corpuscular HGB Conc 32.4 g/dl (32-36); Mean Corpuscular Hemoglobin 28.3 pg (26-34); Mean Corpuscular Volume 87.5 fl (80-100); Monocytes Absolute Auto 1.1 K/mm3 (0.1-0.6); Monocytes Percent Auto 14.4 % (2.6-8.5); Neutrophils Absolute Auto 5.4 K/mm3 (1.3-6.7); Neutrophils Percent Auto 70.5 % (45.5-73.1); Platelet Count Result 481 k/mm3 (150-375); Red Blood Count 3.53 M/mm3 (4.6-6.20); Red Cell Distribution Width 14.7 % (11.5-14.5); White Blood Count 7.7 K/mm3 (4.5-10.0)
[2023-06-26] MEDS: metroNIDAZOLE 500 MG/ISO 100ML 500 MG/100 ML BAG 100 MG IVPB (06:49)
[2023-06-26 07:04] LABS: Alanine Aminotransferase 14 U/L (6-50); Albumin Level 2.6 g/dL (3.5-5.1); Alkaline Phosphatase 353 U/L (38-126); Anion Gap 3 mmol/L (8-16); Aspartate Amino Transferase 31 U/L (17-59); Bilirubin,Total 0.6 mg/dL (0.2-1.3); Blood Urea Nitrogen 12 mg/dL (9-20); Calcium 7.3 mg/dL (8.4-10.2); Carbon Dioxide 31 mmol/L (22-30); Chloride 99 mmol/L (98-107); Estimated CRCL calculation 72 ml/min; Estimated Glomerular Filt Rate > 60; Glucose 117 mg/dL (65-110); Magnesium 1.6 mg/dL (1.6-2.3); Potassium 2.7 mmol/L (3.4-5.0); Sodium 133 mmol/L (137-145)
[2023-06-26 08:00] VITALS: PULSE 90
--- NOTE | 2023-06-26 08:10 | PC.NURSE ---
Patient refusing oral and IV potassium. Patient wants to talk to the doctors. Yarelis Wright GRID TRIMMER and Dr Lowry office notified.
--- NOTE | 2023-06-26 08:54 | PM.IMPN ---
Progress Note: A&P Assessment and Plan (1) Colonic mass: Code(s): K63.89 - Other specified diseases of intestine Status: Acute Assessment and Plan: Patient presented with abdominal pain, diarrhea and hematochezia. CT abdomen pelvis revealing extensive wall thickening of the sigmoid colon suspicious for colonic malignancy versus possibility of infectious / inflammatory colitis. with possible metastases in the liver, bladder and lymph nodes. GI and General surgery consulted. Colonoscopy revealing rectal mass Continue IV antibiotics flagyl and meropenem Analgesics and antiemetics p.r.n. CEA elevated at 46.5 Diverting colostomy postop day 5 Wound care consulted Advance diet to regular Trend output. Improving, yesterday (06/23) stool was 1300 ml. Unsure of output in the last 24 hours as nothing was charted. (2) Large bowel obstruction: Code(s): K56.609 - Unspecified intestinal obstruction, unspecified as to partial versus complete obstruction Status: Resolved Assessment and Plan: Likely due to colonic mass. GI and General surgery consulted. Diverting colostomy postop day 5 General surgery to manage post op care (3) Hematochezia: Code(s): K92.1 - Melena Status: Acute Assessment and Plan: patient has experienced hematochezia for the past couple weeks. Three point drop in H&H since March of 2023. Monitor H&H Transfuse if hemoglobin less than 7 Current H/H 9.6/29.3 (4) Acute hypokalemia: Code(s): E87.6 - Hypokalemia Status: Acute Assessment and Plan: Patient presented with a potassium of 2.6. Patient was prescribed 40 mEq IV potassium to be given and then started on potassium chloride/sodium chloride 06/16 potassium 2.4, K rider added to fluids 06/18 Patient's potassium remains between 2.5-2.7. Continue p.o. and IV potassium scheduled. 06/20 potassium slowly improving. Potassium today 3.2. Monitor BMP and replace as needed. Current potassium is 2.7 give 60 meq PO x 1 check magnesium trend labs replace as indicated Stop fluids (5) Liver lesion: Code(s): K76.9 - Liver disease, unspecified Status: Acute Assessment and Plan: Liver hypodensity seen on CT scan suspicious for metastases. Total bili, AST and ALT all within normal limits. Alk-phos elevated at 224 at admission, currently 251 (6) Abdominal pain: Qualifiers: Abdominal location: generalized Qualified Code(s): R10.84 - Generalized abdominal pain Code(s): R10.9 - Unspecified abdominal pain Status: Acute Assessment and Plan: Likely due to colonic mass/obstruction. Analgesics and anti emetics p.r.n. (7) Benign essential hypertension: Code(s): I10 - Essential (primary) hypertension Status: Chronic Assessment and Plan: BP 151/88 Home oral antihypertensive on hold Hydralazine PRN with parameters Continue to trend BP adjust therapy as indicated (8) Acute kidney injury: Code(s): N17.9 - Acute kidney failure, unspecified Status: Acute Assessment and Plan: Current BUN/Cr 20/1.10 Not abnormal on admission with Cr 1.10 Baseline appears to be 0.9 Most likely related to dehydration Continue to trend labs Stop IV fluids at this time renal ultrasound normal kidneys without hydronephrosis (9) Edema: Code(s): R60.9 - Edema, unspecified Status: Acute Assessment and Plan: Generalized edema to BLE, scrotum, and LUE. Lung sounds clear and patient denies SOB. Encourage elevation of scrotum and legs. CARLOS hose ordered. Replace lytes today. Plan Give 80 meq x 2 and repeat BMP this afternoon. Subjective Date/time seen: 06/26/23 08:54 Interval history: This is a 58 year old male with a past medical history of BPH, HLD, and DM II who presented to [facility] ED on 06/15 with complai
[2023-06-26] MEDS: POTASSIUM CHLORIDE 20 MEQ ER TABLET 80 MEQ PO ×2 (11:13→13:21)
--- NOTE | 2023-06-26 11:36 | PM.PNGS ---
Progress Note: A&P Assessment and Plan (1) Status post colostomy: Code(s): Z93.3 - Colostomy status Status: Acute Assessment and Plan: Colostomy working well, incisions seem to be healing well. Okay from a surgical standpoint to discharge the patient when medically stable. Patient has been educated on ostomy care. The wound care nurse will be bringing by ostomy appliances for the patient to take home. We will have him follow-up with Dr. Lara next week for possible removal of kitty and ostomy bridge. We would recommend transitioning to oral antibiotics for another 7 days. (2) Large bowel obstruction: Code(s): K56.609 - Unspecified intestinal obstruction, unspecified as to partial versus complete obstruction Status: Resolved Assessment and Plan: S/p transverse loop colostomy (3) Rectal cancer metastasized to liver: Code(s): C20 - Malignant neoplasm of rectum; C78.7 - Secondary malignant neoplasm of liver and intrahepatic bile duct Status: Chronic Assessment and Plan: Follow-up with Oncology as an outpatient. Will have to hold off on chemotherapy until healed from surgery. Plan I have discussed the patient's case and plan of care with Dr. Lara. Subjective Subjective Date/Time Seen: 06/26/23 11:36 Post Op day: 7 (Attempted laparoscopic loop colostomy placement with conversion to open transverse loop colostomy placement) Patient reports: no new complaints, tolerating a regular diet and afebrile Interval history: Reviewed since last seen. Patient overall doing well. He is tolerating activity. Pain is controlled with NSAIDs. His potassium was low again at 2.7 this morning. He is frustrated with his continued hypokalemia and refused his oral and IV potassium this morning. He and his have been educated on ostomy care for discharge. They have no further questions at ostomy care. He denies nausea, vomiting, or abdominal pain. No specific complaints at this time. Patient is eager to be discharged. Review of Systems Review of Systems: All systems reviewed & are unremarkable except as noted in HPI and below Exam Const: General: comfortable and no acute distress Orientation/consciousness: patient oriented x3 GI: Inspection: non-distended and incision (Left sided incisions dry and healing well, no erythema) GI Palp: Yes Soft to palpation, No Tenderness to palpation present (GI) and No Guarding due to palpation present (GI) Auscultation: normal bowel sounds Other: Midline incision appears to be healing well without drainage. Colostomy is functioning well with liquid brow stool, stoma is viable and ostomy bridge in place. Neuro: General: moves all extremities Extrem: General: no calf tenderness Psych: Mental Status: mental status grossly normal Insight: Good insight present (Psych) Objective Data Vital Signs Vital Signs: Vital Signs - 24 hr 06/25/23 12:00 06/25/23 14:00 06/25/23 16:00 Temperature 99.5 F Pulse Rate 96 103 H 117 H Respiratory Rate 16 Blood Pressure 163/103 H Pulse Oximetry 98 Oxygen Delivery 06/25/23 21:02 06/26/23 00:00 06/26/23 04:00 Temperature 99.4 F Pulse Rate 96 97 91 Respiratory Rate 16 Blood Pressure 152/97 H Pulse Oximetry 98 Oxygen Delivery 06/26/23 08:05 Temperature Pulse Rate Respiratory Rate Blood Pressure Pulse Oximetry Oxygen Delivery Room Air Intake/Output Intake/Output: Intake & Output 06/23/23 06/24/23 06/25/23 06/26/23 23:59 23:59 23:59 23:59 Intake Total 3289 1126 1600 738 Output Total 837 032 1265 Balance 2589 1126 1075 -1612 Meds/Results Medications: Active Medications Generic Name Dose Route Start Last Admin Trade Name Freq PRN Reason Stop Dose Admin Acetaminophen 1,000 mg 06/23/23 14:22 Acetaminophen 500 Mg Tablet PO Q6H PRN Mild Pain (1-3) or Fever Hydrocodone Bitart/Acetaminophen 1 tab 06/23/23 14:22 06/24/23 08:53
--- NOTE | 2023-06-26 11:48 | PCNFU ---
Nutrition Follow-Up Complete: Severe protein calorie malnutrition related to chronic colon mass as evidenced by weight loss 15%/4 months, intake <75% needs >1 month Goal:Advance diet Pt meeting goal. New goal of greater than 50% of meals. Pt current nutrition is Regular, Ensure compact TID with meals. Nutrition recommendation: Continue with current plan of care Last recorded weight is 78.63 kg. Bowel Motility: +BM 06/22 Labs Reviewed: Hgb:10, HCT:30.9, Alb:2.6, Na:133, K:2.7 Meds Noted: zofran, protonix, KCL, lovenox Skin: No skin issues noted Additional Notes: Pt diet advanced to regular, intake averages 25% most meals, Ensure compact in place. Continue to encourage po intake of meals and supplements. . Monitoring for diet advancement, plan of care, labs, weights, intakes Follow up in 5 days
[2023-06-26 12:00] VITALS: PULSE 91
--- NOTE | 2023-06-26 14:00 | PC.NURSE ---
Called wound care about ostomy leaking and to show family how to size stoma again.
--- NOTE | 2023-06-26 14:22 | P.DS_ITS ---
DS: Admitting Diagnosis Discharge Date 06/26/23 Admitting Diagnosis colon cancer DS: Discharge Diagnosis Discharge Diagnosis (1) Colonic mass: Code(s): K63.89 - Other specified diseases of intestine Status: Acute Assessment and Plan: * Patient presented with abdominal pain, diarrhea and hematochezia. * CT abdomen pelvis revealing extensive wall thickening of the sigmoid colon suspicious for colonic malignancy versus possibility of infectious / inflammatory colitis. with possible metastases in the liver, bladder and lymph nodes. * GI and General surgery consulted. * Colonoscopy revealing rectal mass * Continue IV antibiotics flagyl and meropenem * Analgesics and antiemetics p.r.n. * CEA elevated at 46.5 * Diverting colostomy postop day 5 * Wound care consulted * Advance diet to regular * Trend output. Improving, yesterday (06/23) stool was 1300 ml. Unsure of output in the last 24 hours as nothing was charted. (2) Large bowel obstruction: Code(s): K56.609 - Unspecified intestinal obstruction, unspecified as to partial versus complete obstruction Status: Resolved Assessment and Plan: Likely due to colonic mass. * GI and General surgery consulted. * Diverting colostomy postop day 5 * General surgery to manage post op care (3) Hematochezia: Code(s): K92.1 - Melena Status: Acute Assessment and Plan: patient has experienced hematochezia for the past couple weeks. * Three point drop in H&H since March of 2023. * Monitor H&H * Transfuse if hemoglobin less than 7 * Current H/H 9.6/29.3 (4) Acute hypokalemia: Code(s): E87.6 - Hypokalemia Status: Acute Assessment and Plan: Patient presented with a potassium of 2.6. * Patient was prescribed 40 mEq IV potassium to be given and then started on potassium chloride/sodium chloride * 06/16 potassium 2.4, K rider added to fluids * 06/18 Patient's potassium remains between 2.5-2.7. Continue p.o. and IV potassium scheduled. * 06/20 potassium slowly improving. Potassium today 3.2. * Monitor BMP and replace as needed. * Current potassium is 2.7 * give 60 meq PO x 1 * check magnesium * trend labs * replace as indicated * Stop fluids (5) Liver lesion: Code(s): K76.9 - Liver disease, unspecified Status: Acute Assessment and Plan: Liver hypodensity seen on CT scan suspicious for metastases. Total bili, AST and ALT all within normal limits. Alk-phos elevated at 224 at admission, currently 251 (6) Abdominal pain: Qualifiers: Abdominal location: generalized Qualified Code(s): R10.84 - Generalized abdominal pain Code(s): R10.9 - Unspecified abdominal pain Status: Acute Assessment and Plan: Likely due to colonic mass/obstruction. * Analgesics and anti emetics p.r.n. (7) Benign essential hypertension: Code(s): I10 - Essential (primary) hypertension Status: Chronic Assessment and Plan: BP 151/88 Home oral antihypertensive on hold Hydralazine PRN with parameters Continue to trend BP adjust therapy as indicated (8) Acute kidney injury: Code(s): N17.9 - Acute kidney failure, unspecified Status: Acute Assessment and Plan: * Current BUN/Cr 20/1.10 * Not abnormal on admission with Cr 1.10 * Baseline appears to be 0.9 * Most likely related to dehydration * Co
--- NOTE | 2023-06-26 14:22 | PM.DS ---
DS: Admitting Diagnosis Discharge Date 06/26/23 Admitting Diagnosis colon cancer DS: Discharge Diagnosis Discharge Diagnosis (1) Colonic mass: Code(s): K63.89 - Other specified diseases of intestine Status: Acute Assessment and Plan: Patient presented with abdominal pain, diarrhea and hematochezia. CT abdomen pelvis revealing extensive wall thickening of the sigmoid colon suspicious for colonic malignancy versus possibility of infectious / inflammatory colitis. with possible metastases in the liver, bladder and lymph nodes. GI and General surgery consulted. Colonoscopy revealing rectal mass Continue IV antibiotics flagyl and meropenem Analgesics and antiemetics p.r.n. CEA elevated at 46.5 Diverting colostomy postop day 5 Wound care consulted Advance diet to regular Trend output. Improving, yesterday (06/23) stool was 1300 ml. Unsure of output in the last 24 hours as nothing was charted. (2) Large bowel obstruction: Code(s): K56.609 - Unspecified intestinal obstruction, unspecified as to partial versus complete obstruction Status: Resolved Assessment and Plan: Likely due to colonic mass. GI and General surgery consulted. Diverting colostomy postop day 5 General surgery to manage post op care (3) Hematochezia: Code(s): K92.1 - Melena Status: Acute Assessment and Plan: patient has experienced hematochezia for the past couple weeks. Three point drop in H&H since March of 2023. Monitor H&H Transfuse if hemoglobin less than 7 Current H/H 9.6/29.3 (4) Acute hypokalemia: Code(s): E87.6 - Hypokalemia Status: Acute Assessment and Plan: Patient presented with a potassium of 2.6. Patient was prescribed 40 mEq IV potassium to be given and then started on potassium chloride/sodium chloride 06/16 potassium 2.4, K rider added to fluids 06/18 Patient's potassium remains between 2.5-2.7. Continue p.o. and IV potassium scheduled. 06/20 potassium slowly improving. Potassium today 3.2. Monitor BMP and replace as needed. Current potassium is 2.7 give 60 meq PO x 1 check magnesium trend labs replace as indicated Stop fluids (5) Liver lesion: Code(s): K76.9 - Liver disease, unspecified Status: Acute Assessment and Plan: Liver hypodensity seen on CT scan suspicious for metastases. Total bili, AST and ALT all within normal limits. Alk-phos elevated at 224 at admission, currently 251 (6) Abdominal pain: Qualifiers: Abdominal location: generalized Qualified Code(s): R10.84 - Generalized abdominal pain Code(s): R10.9 - Unspecified abdominal pain Status: Acute Assessment and Plan: Likely due to colonic mass/obstruction. Analgesics and anti emetics p.r.n. (7) Benign essential hypertension: Code(s): I10 - Essential (primary) hypertension Status: Chronic Assessment and Plan: BP 151/88 Home oral antihypertensive on hold Hydralazine PRN with parameters Continue to trend BP adjust therapy as indicated (8) Acute kidney injury: Code(s): N17.9 - Acute kidney failure, unspecified Status: Acute Assessment and Plan: Current BUN/Cr 20/1.10 Not abnormal on admission with Cr 1.10 Baseline appears to be 0.9 Most likely related to dehydration Continue to trend labs Stop IV fluids at this time renal ultrasound normal kidneys without hydronephrosis (9) Edema: Code(s): R60.9 - Edema, unspecified Status: Acute Assessment and Plan: Generalized edema to BLE, scrotum, and LUE. Lung sounds clear and patient denies SOB. Encourage elevation of scrotum and legs. CARLOS hose ordered. Replace lytes today. Plan Give 80 meq x 2 and repeat BMP this afternoon. DS: Summary Hospital Course Hospital Course: Interval history: This is a 58 year old male with a p
[2023-06-26 15:37] LABS: Potassium 3.1 mmol/L (3.4-5.0)
--- NOTE | 2023-07-04 11:50 | PCWOUND ---
WOCN NOTE Patient assessed today in Dr Lowry office. incision line proximal and distal to stoma dehiscing. Educated patient and spouse on home care of placing aquacel ag rope in open wound, apply stoma powder to peristomal rash, crust, place brava sheets over wound to allow for pouching. Then applying one piece ostomy pouch. spouse expressed understanding.
== END 2023-06-26 17:15 | disposition home or self-care (01) | DRG 231 ==
LOC: ANHED 06-15 05:59 → ANH3MEDSUR 06-15 06:59
PROVIDERS: Internal Medicine Critical Care Medicine; Internal Medicine Gastroenterology; Nurse Practitioner; Nurse Practitioner Family; Student in an Organized Health Care Education/Training Program; Surgery; Admitting Provider Internal Medicine; Emergency Provider Emergency Medicine; PCP Internal Medicine; Visit Provider Nurse Practitioner Acute Care
PROC: 0DJD8ZZ Inspection of Lower Intestinal Tract, Via Natural or Artificial Opening Endoscopic (ICD-10-PCS; CPT 45378; principal; 2023-06-16 13:30)
PROC: 0DTF4ZZ Resection of Right Large Intestine, Percutaneous Endoscopic Approach (ICD-10-PCS; CPT 44204; principal; 2023-06-19 15:00)
DX: C20 Malignant neoplasm of rectum (principal); C77.5 Secondary and unspecified malignant neoplasm of intrapelvic lymph nodes; N17.9 Acute kidney failure, unspecified; C79.11 Secondary malignant neoplasm of bladder; C78.7 Secondary malignant neoplasm of liver and intrahepatic bile duct; E86.0 Dehydration; K91.81 Other intraoperative complications of digestive system; E11.9 Type 2 diabetes mellitus without complications; E78.5 Hyperlipidemia, unspecified; E87.6 Hypokalemia; N40.1 Benign prostatic hyperplasia with lower urinary tract symptoms; R35.1 Nocturia; R60.9 Edema, unspecified; I10 Essential (primary) hypertension; Z53.31 Laparoscopic surgical procedure converted to open procedure
CPT/HCPCS: 36415; 71270; 74018; 74176; 74177; 76775; 80048; 80053; 81001; 82378; 82948; 83690; 83735; 84132; 85014; 85018; 85025; 85027; 87045; 87427; 87449; 87493; 88305; 93005; 96361; 96365; 96366; 96375; 97161; 99285; A9270; C9113; J0330; J0360; J1170; J1650; J1741; J1836; J1885; J1940; J2175; J2185; J2250; J2270; J2405; J2543; J2704; J3010; J3475; J3480; J7030; J7040; J7042; J7120; P9047; Q9967

== ENCOUNTER 2023-08-11 20:08 | Emergency (ER) | payer OTHER, SELFPAY ==
--- NOTE | ~2023-08-11 | CT_ITS ---
EXAMINATION: CT abdomen pelvis w con DATE: 08/11/2023 23:48 INDICATION: Abdominal pain at the colostomy site. TECHNIQUE: Computed tomography (CT) of the abdomen and pelvis was performed with 100 mL Omnipaque 350 intravenous contrast. Automated exposure control and iterative reconstruction technique were employe d. The dose-length product was 418.71 mGy-cm. COMPARISON: CT abdomen and pelvis 06/17/2023, chest CT 06/20/2023 FINDINGS: The visualized portions of the lung bases demonstrate mild atelectasis. No pleural effusion . The heart size is normal. No pericardial effusion. There is a large area of low attenuation in righ t hepatic lobe measuring 6.4 x 8.8 cm. There is a 3.6 x 1.8 cm subcapsular fluid collection in this a vita. There is a small volume of perihepatic ascites. The spleen, pancreas, and right adrenal gland ar e normal. There is a 2.9 cm mass in left adrenal gland. There are cysts in right kidney measuring up to 11 mm. There is mild right hydronephrosis. There is a 13 mm hypodense mass in left kidney. There i s a 6 mm cyst in left kidney. The prostate is mildly enlarged. There is wall thickening of the rectos igmoid. There is a diverting transverse ileostomy. There is paraesophageal, perihepatic, aortocaval, left para-aortic, bilateral common iliac, bilateral external iliac, and bilateral internal iliac lymp hadenopathy. There is perirectal and mesenteric lymphadenopathy. There is peritoneal carcinomatosis. There are lytic lesions in T10, L3, and L4 vertebral bodies. IMPRESSION: 1. Large mass in right hepatic lobe, which may be metastatic disease and/or abscess. 2. Wall thickening of the rectosigmoid again seen, likely a combination of primary malignancy and col itis. 3. Abdominal and pelvic lymphadenopathy and bone lesions, worsened from 06/17/2023, consistent with me tastatic disease. Peritoneal carcinomatosis. 4. Small volume of perihepatic ascites. 5. Mild right hydronephrosis. 6. Left adrenal mass, which may be an adenoma or metastatic disease. 7. Left kidney mass, which may be infection, metastatic disease, or a hemorrhagic cyst. Reviewed, dictated and finalized at location [facility] IMPRESSION: 1. Large mass in right hepatic lobe, which may be metastatic disease and/or abs cess. 2. Wall thickening of the rectosigmoid again seen, likely a combination of prim stacey malignancy and colitis. 3. Abdominal and pelvic lymphadenopathy and bone lesions, worsened from 06/17/20 23, consistent with metastatic disease. Peritoneal carcinomatosis. 4. Small volume of perihepatic ascites. 5. Mild right hydronephrosis. 6. Left adrenal mass, which may be an adenoma or metastatic disease. 7. Left kidney mass, which may be infection, metastatic disease, or a hemorrhag ic cyst.
[2023-08-11 20:23] VITALS: BP 133/84; PULSE 82; RESP 19; TEMP 36.7; O2SAT 99
[2023-08-11 21:17] VITALS: BP 140/91; PULSE 81; RESP 18; O2SAT 100
[2023-08-11 22:40] LABS: Basophils Percent Auto 0.2 % (0.2-1.2); Hematocrit 29.7 % (42.0-52.0); Hemoglobin 9.4 g/dL (14.0-18.0); Immature Granulocyte Absolute 0.02 K/mm3 (0.00-0.031); Immature Granulocyte Percent A 0.4 % (0-0.5); Lymphocytes Absolute Auto 0.88 K/mm3 (0.9-3.2); Lymphocytes Percent Auto 16.4 % (18.3-44.2); Mean Corpuscular HGB Conc 31.6 g/dl (32-36); Mean Corpuscular Hemoglobin 28.5 pg (26-34); Mean Platelet Volume 9.3 fl (7.4-10.4); Monocytes Absolute Auto 0.6 K/mm3 (0.1-0.6); Monocytes Percent Auto 11.2 % (2.6-8.5); Neutrophils Absolute Auto 3.9 K/mm3 (1.3-6.7); Neutrophils Percent Auto 71.8 % (45.5-73.1); Platelet Count Result 459 k/mm3 (150-375); Red Cell Distribution Width 17.9 % (11.5-14.5); White Blood Count 5.4 K/mm3 (4.5-10.0)
[2023-08-11 22:53] LABS: Alanine Aminotransferase 24 U/L (6-50); Alkaline Phosphatase 434 U/L (38-126); Anion Gap 15 mmol/L (8-16); Aspartate Amino Transferase 30 U/L (17-59); Bilirubin,Total 0.9 mg/dL (0.2-1.3); Blood Urea Nitrogen 37 mg/dL (9-20); Carbon Dioxide 25 mmol/L (22-30); Chloride 99 mmol/L (98-107); Estimated CRCL calculation 47 ml/min; Estimated Glomerular Filt Rate 52; Glucose 134 mg/dL (65-110); Lipase 309 U/L (23-300); Potassium 4.2 mmol/L (3.4-5.0); Sodium 139 mmol/L (137-145)
[2023-08-11 22:54] LABS: Lactic Acid Reflex 1.3 mmol/L (0.7-2.0); Partial Thromboplastin Time 27.1 SECONDS (22.3-36.8); Prothrombin Time 13.1 Seconds (11.1-14.7)
--- NOTE | 2023-08-11 23:31 | PC.NURSE ---
Report received from ALEXIS Calloway. Assumed care of patient at this time.
--- NOTE | 2023-08-11 23:42 | PC.NURSE ---
Patient taken to ct at this time.
[2023-08-11 23:49] LABS: Appearance Urine Cloudy (Clear); Bacteria Urine None Seen /hpf; Bilirubin Urine Negative (Negative); Blood Urine Negative (Negative); Color Urine Yellow (Yellow); Glucose Urine UA Negative (Negative); Hyaline Casts Urine Present /lpf; Ketones Urine Trace mg/dL (Negative); Leukocyte Esterase Ur Negative LEU/UL (Negative); Nitrate Urine Negative (Negative); Non Pathogenic Casts >20; Protein Urine 1+ mg/dL (Negative); RBC Urine 0-2 /hpf (0-2); Specific Grav Ur 1.024 (1.001-1.035); Squamous Epithelial Cell Urine None seen /hpf (Few); Urobilinogen Urine 0.2 mg/dL (<2.0); WBC Urine 0-5 /hpf; pH Urine 5.5 (5.0-9.0)
[2023-08-11 23:53] LABS: Add Urine Microscopic? YES
--- NOTE | 2023-08-12 00:56 | ED.GENADULT ---
HPI - General Adult General Chief complaint: Abdominal Pain Stated complaint: something is wrong with my stoma Time Seen by Provider: 08/11/23 21:13 History of Present Illness HPI narrative: Patient is a 58-year-old gentleman who presents the emergency department with chief complaint of mucus drainage from the ostomy site. Patient reports that today he noticed there was some mucousy/possible tissue material in the ostomy bag. The patient reports no pain reports no nausea no vomiting denies fever Related Data Home Medications Medication Instructions Recorded Confirmed multivitamin 1 tablet PO DAILY 07/07/23 08/03/23 Chemo treatments continuous IV infusion 08/03/23 08/03/23 Allergies Allergy/AdvReac Type Severity Reaction Status Date / Time No Known Allergies Allergy Verified 08/11/23 21:19 Review of Systems Review of Systems: A 10 system review of systems was completed on the patient and is negative except for what is stated in the HPI. Nursing and ancillary documentation was reviewed. [facility] Past Medical History Medical History 23-polyvalent pneumococcal polysaccharide vaccine contraindicated as received chemotherapy or radiation therapy within 2 weeks Benign essential hypertension BPH associated with nocturia Hyperlipidemia, unspecified Type 2 diabetes mellitus without complication, without long-term current use of insulin Surgical History Surgical History History of colostomy attempted laparoscopic colostomy placement with conversion to open transverse loop colostomy on 06/19/23 SAW Family History Family History Mother Hypertension Father Family history of kidney disease Family history of coronary artery disease Other Cerebrovascular accident Social History Social History Social History: Patient is . 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 Lives at home with and son. Has a cat. Does not have health insurance right now and this weighs on him and his family daily. Smoking status: Never smoker Alcohol intake: never Substance use: never Substance use type: does not use Lack of Transportation: No Lack of Food: Never True Current Housing: I Have Housing Concerned About Future Housing: No Difficulty Paying Gas/Electric Bills: No Difficulty Paying for Meds: Decline to Answer Currently Unemployed: YES Education: Associate Degree Difficulty w/ Childcare or Family Care: No Living arrangements: with family Occupation/Education: occupation Gender identity (if verbalized by the patient): Male Sexual Orientation (if Verbalized by the Patient): Straight or Heterosexual Spiritual care concerns: No Exam Narrative: GENERAL: Well-appearing, well-nourished, and in no acute distress. HEAD: Normocephalic, atraumatic. EYES: PERRLA and EOMI. ENT: Nares clear, no rhinorrhea or epistaxis. Mucous membranes moist. NECK: Supple. CHEST: Clear to auscultation. No respiratory distress. HEART: Regular rate and rhythm. No murmur heard. Normal peripheral pulses. ABDOMEN: Soft, nontender, nondistended, normal active bowel sounds. Ostomy bag in place. Bag open and material appears to be mucousy type material EXTREMITIES: Normal range of motion. No edema. SKIN: Warm, dry, no rash. NEURO: No focal deficits. Alert and oriented x3. PSYCH: Normal mood and affect. Course Vital Signs Vital signs: Vital Signs Temperature 36.7 C 08/11/23 20:23 Pulse Rate 82 08/11/23 20:23 Respiratory Rate 19 08/11/23 20:23 Blood Pressure 133/84 08/11/23 20:23 Pulse Oximetry 99 08/11/23 20:23 Oxygen Delivery Room Air 08/11/23 20:23 Temperature 3
[2023-08-12 00:57] VITALS: BP 133/92; PULSE 74; RESP 17; O2SAT 99
[2023-08-12 01:10] VITALS: BP 142/88; PULSE 80; RESP 17; O2SAT 100
== END 2023-08-12 01:17 | disposition home or self-care (01) ==
PROVIDERS: Emergency Provider Emergency Medicine; PCP Internal Medicine
DX: R10.9 Unspecified abdominal pain (principal); E78.5 Hyperlipidemia, unspecified; E11.9 Type 2 diabetes mellitus without complications; I10 Essential (primary) hypertension
CPT/HCPCS: 36415; 74177; 80053; 81001; 83605; 83690; 85025; 85610; 85730; 99284; Q9967